=== PATIENT | female | born 1930 | race Caucasian/White ===

== ENCOUNTER → 2017-04-09 | Outpatient (CLI) | payer MEDICARE ==
[~2017-04-09] MED LIST: /FENT25PA; /PANT40TA; /THIA10TA; ACET65TA; ANOR1AER IN; CALC12502; COLA100C2; ECOT325T5; FLEXERIL; FOLI1TAB; LEVO50TA5 PO; LISI10TA4 PO; METAMUCIL; MILKSUS; NICO14DI3; PROAAER10 IN; SENN8.6T14; THERGRAN; VICO5TAB
[2017-04-09 13:06] LABS: BASO # 0.1 K/mm3 (0.0-0.2); BASO % 1.2 % (0.0-1.0); EOS # 0.2 K/mm3 (0.0-0.50); EOS % 4.3 % (0.0-3.0); LARGE UNSTAINED CELL # 0.1 K/mm3 (0.0-0.4); LARGE UNSTAINED CELL % 1.8 % (0.0-4.0); LYMPH # 1.5 K/mm3 (1.5-4.5); LYMPH % 28.1 % (24.0-44.0); MEAN CORPUSCULAR HEMOGLOBIN 33.9 pg (27.0-33.0); MEAN CORPUSCULAR HGB CONC 33.3 g/dl (32.0-36.5); MEAN CORPUSCULAR VOLUME 101.8 fl (80.0-96.0); MONO # 0.3 K/mm3 (0.0-0.8); MONO % 6.2 % (0.0-5.0); NEUTROPHILS # 2.9 K/mm3 (1.8-7.7); NEUTROPHILS % 58.4 % (36.0-66.0); PLATELET COUNT, AUTOMATED 294 k/mm3 (150-450); RED CELL DISTRIBUTION WIDTH 12.3 % (11.5-14.5)
[2017-04-09 13:20] LABS: ALBUMIN/GLOBULIN RATIO 1.54 (1.00-1.93); ALKALINE PHOSPHATASE 91 U/L (45-117); ALT/SGPT 37 U/L (12-78); ANION GAP 7 MEQ/L (8-16); AST/SGOT 31 U/L (15-37); BILIRUBIN,TOTAL 0.5 MG/DL (0.2-1.0); BLOOD UREA NITROGEN 16 MG/DL (7-18); CARBON DIOXIDE LEVEL 29 MEQ/L (21-32); CHLORIDE LEVEL 103 MEQ/L (98-107); CHOLESTEROL LEVEL 254 MG/DL (<200); CREATININE FOR GFR 0.82 MG/DL (0.55-1.02); GLOMERULAR FILTRATION RATE > 60.0 (>32); GLUCOSE, FASTING 79 MG/DL (83-110); POTASSIUM SERUM 4.8 MEQ/L (3.5-5.1); SODIUM LEVEL 139 MEQ/L (136-145); TOTAL PROTEIN 6.6 GM/DL (6.4-8.2); TRIGLYCERIDES LEVEL 176 MG/DL (<150)
== END ==
LOC: M SMT 10:15
PROVIDERS: ATTEND Physician Assistant Medical
DX: I10 Essential (primary) hypertension (principal); E03.8 Other specified hypothyroidism; Z13.220 Encounter for screening for lipoid disorders; Z13.0 Encounter for screening for diseases of the blood and blood-forming organs and certain disorders involving the immune mechanism

== ENCOUNTER → 2017-04-27 | Outpatient (CLI) | payer MEDICARE ==
--- NOTE | 2017-04-28 06:43 | REP ---
PA CHEST WITH LEFT RIBS: 04/27/2017. Comparison: chest x-ray 11/11/2016, 04/10/2015 [facility]. Clinical history: Left posterior rib pain, fell yesterday. Findings: PA chest: Lungs are quite hyperinflated. There is no pleural effusion, lateral pleural thickening or apical scarring. Triangular-shaped density at the inferior aspect of the right hilum along the right heart border suggest scar and is unchanged for the last 2 years. There is quite prominent pulmonary artery main segment on the left, unchanged as well. Some underlying interstitial fibrotic change and emphysematous changes, peribronchial thickening and a calcified aortic arch noted, all of this unchanged. No gross cardiomegaly, vascular redistribution or pulmonary edema. No pneumothorax. Left ribs: Posterior rib articulations, clavicles and the visualized vertebral bodies without acute compression deformity of destructive lesions. There is no fracture visible on the ribs on an acute basis. Healing and remodeling of an old left lateral fifth and seventh rib fracture noted on the straight AP rib views. Marginal osteophytes in the spine. No free air under the diaphragm. There is no pleural effusion, lateral pleural thickening or pneumothorax. Impression: 1. Hyperinflation with COPD and fibrosis, pulmonary artery hypertension and some apical scarring. All of this stable. 2. Triangular shaped density suggesting scar or fat in the fissure adjacent to the right heart border. No dense consolidation, parenchymal mass or acute infiltrate. 3. Old healed and remodeled left lateral fifth and seventh rib fractures without evidence of an acute rib fracture, effusion or pneumothorax. Signed by Adelso Pierson MD 04/28/2017 07:55 A
--- NOTE | 2017-04-28 06:43 | REP ---
LEFT KNEE PAIN: 04/27/2017. Clinical history: Knee pain, patient fell yesterday. Remote lateral tibial plateau, proximal fibular fracture in 2007. Comparison: 04/28/2008. Findings: Five views are provided. The lateral tibial plateau and proximal fibular fractures are healed and remodeled since previous study. 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 Multiple lucencies. No joint effusion. I see no patellar subluxation or dislocation. Vascular calcifications in arteries are noted in the lower femur, popliteal fossa and proximal calf. There is tricompartment osteoarthritis. No joint space narrowing. Impression: 1. 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 2. No new or acute fractures. Tricompartment osteoarthritis. Demineralization. No definite joint effusion. Signed by Adelso Pierson MD 04/28/2017 07:55 A
== END ==
LOC: M ADAMS 11:36
PROVIDERS: ATTEND Physician Assistant
DX: M54.6 Pain in thoracic spine (principal); M25.562 Pain in left knee

== ENCOUNTER → 2017-12-05 | Outpatient (CLI) | payer MEDICARE | LOC: M ADAMS 10:12 | DX: J84.9 Interstitial pulmonary disease, unspecified (principal) | CPT/HCPCS: 71046 ==

== ENCOUNTER 2017-12-09 04:04 | Inpatient (IN) | payer MEDICARE ==
[2017-12-09 04:33] LABS: BASO # 0.1 10^3/uL (0.0-0.2); BASO % 0.9 % (0.0-1.0); EOS % 7.7 % (0.0-3.0); HEMATOCRIT 40.2 % (36.0-47.0); IMMATURE GRANULOCYTE % 0.4 % (0-3.0); LYMPH # 2.5 10^3/uL (1.5-4.5); LYMPH % 18.9 % (24.0-44.0); MEAN CORPUSCULAR HEMOGLOBIN 32.1 pg (27.0-33.0); MEAN CORPUSCULAR HGB CONC 32.3 g/dl (32.0-36.5); MEAN CORPUSCULAR VOLUME 99.3 fl (80.0-96.0); MONO # 1.4 10^3/uL (0.0-0.8); MONO % 10.8 % (0.0-5.0); NEUTROPHILS % 61.3 % (36.0-66.0); PLATELET COUNT, AUTOMATED 465 10^3/uL (150-450); RED BLOOD COUNT 4.05 10^6/uL (4.00-5.40); RED CELL DISTRIBUTION WIDTH 11.3 % (11.5-14.5); WHITE BLOOD COUNT 13.1 10^3/uL (4.0-10.0)
[2017-12-09 04:42] LABS: ABG BASE EXCESS -3.7 (-2.0-2.0); ABG O2 SATURATION 96.9 % (95.0-99.0); ABG PARTIAL PRESSURE CO2 54.3 mmHg (35.0-45.0); ABG PARTIAL PRESSURE O2 97.1 mmHg (75.0-100.0); ABG STANDARD HCO3 21.4 MEQ/L (22.0-26.0); ABG TOTAL CO2 25.7 MEQ/L (23.0-31.0); ABG pH (ARTERIAL) 7.263 UNITS (7.350-7.450)
[2017-12-09 04:51] LABS: LACTIC ACID SEPSIS PROTOCOL 1.2 MMOL/L (0.4-2.0)
[2017-12-09 04:53] LABS: ANION GAP 8 MEQ/L (8-16); BLOOD UREA NITROGEN 12 MG/DL (7-18); CALCIUM LEVEL 8.5 MG/DL (8.8-10.2); CARBON DIOXIDE LEVEL 28 MEQ/L (21-32); CHLORIDE LEVEL 105 MEQ/L (98-107); CK-MB VALUE MASS 2.9 NG/ML (0.0-3.6); CPK CREATINE PHOSPHOKINASE 89 U/L (26-192); CREATININE FOR GFR 0.59 MG/DL (0.55-1.30); GLOMERULAR FILTRATION RATE > 60.0 (>32); GLUCOSE, FASTING 182 MG/DL (70-100); MB/CK RELATIVE INDEX 3.25 (< OR =4); NT-PRO BNP 435 PG/ML (<450); POTASSIUM SERUM 4.4 MEQ/L (3.5-5.1); SODIUM LEVEL 141 MEQ/L (136-145); TROPONIN I < 0.02 NG/ML (< 0.10)
[2017-12-09] MEDS: ALBUTEROL SULFATE 2.5 MG/0.5 ML INH NEB SOLN NEB (05:02)
[2017-12-09 05:13] LABS: APPEARANCE, URINE CLEAR (CLEAR); BACTERIA, URINE AUTO NEGATIVE (NEGATIVE); BILIRUBIN, URINE AUTO NEGATIVE (NEGATIVE); BLOOD, URINE BLOOD NEGATIVE (NEGATIVE); COLOR, URINE YELLOW (YELLOW); GLUCOSE, URINE (UA) AUTO NEGATIVE (NEGATIVE); KETONE, URINE AUTO TRACE mg/dL (NEGATIVE); LEUKOCYTE ESTERASE, URINE AUTO NEGATIVE (NEGATIVE); MUCUS, URINE SMALL (NEGATIVE); NITRITE, URINE AUTO NEGATIVE (NEGATIVE); PROTEIN, URINE AUTO NEGATIVE (NEGATIVE); RBC, URINE AUTO 5 /HPF (0-3); SPECIFIC GRAVITY URINE AUTO 1.013 (1.002-1.035); SQUAMOUS EPITHELIAL CELL UR AU 0 /HPF (0-6); UROBILINOGEN, URINE AUTO 0.2 mg/dL (0.0-2.0); WBC, URINE AUTO 0 /HPF (0-3)
[2017-12-09 05:20] LABS: ALBUMIN 3.7 GM/DL (3.2-5.2); ALBUMIN/GLOBULIN RATIO 1.23 (1.00-1.93); ALKALINE PHOSPHATASE 115 U/L (45-117); ALT/SGPT 17 U/L (12-78); AST/SGOT 20 U/L (7-37); BILIRUBIN,DIRECT 0.1 MG/DL (0.0-0.2); BILIRUBIN,TOTAL 0.3 MG/DL (0.2-1.0); FREE THYROXINE INDEX 3.1 % (1.3-4.8); T UPTAKE 36 % (30-39); THYROXINE (T4) 8.5 UG/DL (4.5-12.0); TOTAL PROTEIN 6.7 GM/DL (6.4-8.2)
[2017-12-09] MEDS ORDERED: ISOVUE-370 76% 100ML VIAL (Q9967) As Ordered (05:21)
[2017-12-09 05:27] LABS: AMMONIA 30 uMOL/L (<32)
[2017-12-09] MEDS: LEVOTHYROXINE 75MCG TABLET (0.075MG) PO (06:00)
[2017-12-09] MEDS: dexameTHASONE 20 MG/5 ML VIAL (J1100) IV (06:10)
[2017-12-09] MEDS ORDERED: ONDANSETRON 4MG/2ML VIAL (J2405) IV (06:15)
[2017-12-09] MEDS ORDERED: BISACODYL 10 MG SUPP PR (06:15)
[2017-12-09] MEDS ORDERED: IPRATROPIUM 0.5MG/ALBUTEROL 2.5MG INH SOL UD 3ML (DUONEB)(J7620) NEB (06:15)
[2017-12-09] MEDS ORDERED: ALPRAZolam 0.25 MG TAB PO (06:30)
[2017-12-09] MEDS: HEPARIN SOD (PORCINE) 5000 UNITS/ML VIAL SC ×3 (07:03→21:08)
[2017-12-09] MEDS: ACETAMINOPHEN TAB 650MG DOSE (2X325MG) PO ×3 (07:04→21:08)
[2017-12-09] MEDS: AZITHROMYCIN INJ 500 MG, VIAL MATE ADAPTER 1 EACH in D5W 250 ML IV (07:04)
[2017-12-09 07:59] LABS: ABG BASE EXCESS -3.8 (-2.0-2.0); ABG HCO3 26.7 MEQ/L (22.0-26.0); ABG PARTIAL PRESSURE O2 124.3 mmHg (75.0-100.0); ABG STANDARD HCO3 21.3 MEQ/L (22.0-26.0); ABG TOTAL CO2 29.1 MEQ/L (23.0-31.0)
[2017-12-09 08:00] LABS: INFLUENZA A AMPLIFICATION NEGATIVE (NEGATIVE); INFLUENZA B AMPLIFICATION NEGATIVE (NEGATIVE)
[2017-12-09] MEDS: CEFTRIAXONE SOD 1 GM in APPROPRIATE DILUENT 1 EA IV (08:00)
[2017-12-09] MEDS: IPRATROPIUM 0.5MG/ALBUTEROL 2.5MG INH SOL UD 3ML (DUONEB)(J7620) NEB ×3 (08:01→19:59)
[2017-12-09 08:11] LABS: ABG pH (ARTERIAL) 7.153 UNITS (7.350-7.450)
[2017-12-09] MEDS: LISINOPRIL 10 MG TAB PO (08:56)
[2017-12-09 10:13] LABS: ABG BASE EXCESS 0.7 (-2.0-2.0); ABG HCO3 26.9 MEQ/L (22.0-26.0); ABG O2 SATURATION 83.4 % (95.0-99.0); ABG PARTIAL PRESSURE CO2 49.1 mmHg (35.0-45.0); ABG STANDARD HCO3 24.8 MEQ/L (22.0-26.0); ABG TOTAL CO2 28.4 MEQ/L (23.0-31.0); ABG pH (ARTERIAL) 7.356 UNITS (7.350-7.450)
[2017-12-09 10:15] LABS: ABG PARTIAL PRESSURE O2 46.8 mmHg (75.0-100.0)
[2017-12-09] MEDS: methylPREDNISolone INJ 125 MG/2 ML VIAL (J2930) IV ×2 (10:48→18:08)
[2017-12-09] MEDS: NS 1,000 ML IV (14:17)
[2017-12-09] MEDS ORDERED: diphenhydrAMINE 25 MG CAP PO (21:00)
[2017-12-10] MEDS: IPRATROPIUM 0.5MG/ALBUTEROL 2.5MG INH SOL UD 3ML (DUONEB)(J7620) NEB ×4 (01:05→14:28)
[2017-12-10] MEDS: methylPREDNISolone INJ 125 MG/2 ML VIAL (J2930) IV (01:36)
[2017-12-10 05:04] LABS: HEMATOCRIT 36.2 % (36.0-47.0); MEAN CORPUSCULAR HEMOGLOBIN 32.5 pg (27.0-33.0); MEAN CORPUSCULAR HGB CONC 33.1 g/dl (32.0-36.5); MEAN CORPUSCULAR VOLUME 98.1 fl (80.0-96.0); PLATELET COUNT, AUTOMATED 395 10^3/uL (150-450); RED BLOOD COUNT 3.69 10^6/uL (4.00-5.40); RED CELL DISTRIBUTION WIDTH 11.4 % (11.5-14.5); WHITE BLOOD COUNT 9.9 10^3/uL (4.0-10.0)
[2017-12-10 05:21] LABS: ANION GAP 8 MEQ/L (8-16); BLOOD UREA NITROGEN 18 MG/DL (7-18); CALCIUM LEVEL 8.3 MG/DL (8.8-10.2); CARBON DIOXIDE LEVEL 26 MEQ/L (21-32); CHLORIDE LEVEL 103 MEQ/L (98-107); CREATININE FOR GFR 0.64 MG/DL (0.55-1.30); GLOMERULAR FILTRATION RATE > 60.0 (>32); GLUCOSE, FASTING 141 MG/DL (70-100); POTASSIUM SERUM 4.2 MEQ/L (3.5-5.1); SODIUM LEVEL 137 MEQ/L (136-145)
[2017-12-10] MEDS: AZITHROMYCIN INJ 500 MG, VIAL MATE ADAPTER 1 EACH in D5W 250 ML IV (05:33)
[2017-12-10] MEDS: LEVOTHYROXINE 75MCG TABLET (0.075MG) PO (05:33)
[2017-12-10] MEDS: HEPARIN SOD (PORCINE) 5000 UNITS/ML VIAL SC ×3 (05:33→22:33)
[2017-12-10] MEDS: NS 1,000 ML IV (06:10)
[2017-12-10 08:43] LABS: ABG BASE EXCESS -0.4 (-2.0-2.0); ABG HCO3 23.3 MEQ/L (22.0-26.0); ABG O2 SATURATION 92.3 % (95.0-99.0); ABG PARTIAL PRESSURE CO2 35.3 mmHg (35.0-45.0); ABG PARTIAL PRESSURE O2 58.8 mmHg (75.0-100.0); ABG TOTAL CO2 24.4 MEQ/L (23.0-31.0); ABG pH (ARTERIAL) 7.438 UNITS (7.350-7.450)
[2017-12-10] MEDS: methylPREDNISolone INJ 40 MG/1 ML VIAL (J2920) IV ×2 (09:53→17:52)
[2017-12-10] MEDS: LISINOPRIL 10 MG TAB PO (09:54)
[2017-12-10] MEDS: CEFTRIAXONE SOD 1 GM in APPROPRIATE DILUENT 1 EA IV (09:54)
[2017-12-11] MEDS: IPRATROPIUM 0.5MG/ALBUTEROL 2.5MG INH SOL UD 3ML (DUONEB)(J7620) NEB ×4 (02:00→21:16)
[2017-12-11] MEDS: methylPREDNISolone INJ 40 MG/1 ML VIAL (J2920) IV ×3 (02:46→18:27)
[2017-12-11] MEDS: LEVOTHYROXINE 75MCG TABLET (0.075MG) PO (06:12)
[2017-12-11] MEDS: AZITHROMYCIN INJ 500 MG, VIAL MATE ADAPTER 1 EACH in D5W 250 ML IV (06:12)
[2017-12-11] MEDS: HEPARIN SOD (PORCINE) 5000 UNITS/ML VIAL SC ×3 (06:12→21:36)
[2017-12-11] MEDS: ANORO ELLIPTA INH (07:49)
[2017-12-11] MEDS: LISINOPRIL 10 MG TAB PO (08:32)
[2017-12-11] MEDS: CEFTRIAXONE SOD 1 GM in APPROPRIATE DILUENT 1 EA IV (08:32)
[2017-12-11 09:06] LABS: HEMATOCRIT 38.6 % (36.0-47.0); HEMOGLOBIN 12.7 g/dl (12.0-16.0); MEAN CORPUSCULAR HEMOGLOBIN 32.6 pg (27.0-33.0); MEAN CORPUSCULAR HGB CONC 32.9 g/dl (32.0-36.5); PLATELET COUNT, AUTOMATED 446 10^3/uL (150-450); RED CELL DISTRIBUTION WIDTH 11.5 % (11.5-14.5); WHITE BLOOD COUNT 18.1 10^3/uL (4.0-10.0)
[2017-12-11 09:29] LABS: ANION GAP 9 MEQ/L (8-16); BLOOD UREA NITROGEN 20 MG/DL (7-18); CALCIUM LEVEL 8.2 MG/DL (8.8-10.2); CARBON DIOXIDE LEVEL 26 MEQ/L (21-32); CHLORIDE LEVEL 105 MEQ/L (98-107); CREATININE FOR GFR 0.96 MG/DL (0.55-1.30); GLOMERULAR FILTRATION RATE 58.8 (>32); GLUCOSE, FASTING 171 MG/DL (70-100); POTASSIUM SERUM 4.1 MEQ/L (3.5-5.1); SODIUM LEVEL 140 MEQ/L (136-145)
[2017-12-11] MEDS: CEFDINIR 300 MG CAP (OMNICEF) PO (21:35)
[2017-12-12] MEDS: IPRATROPIUM 0.5MG/ALBUTEROL 2.5MG INH SOL UD 3ML (DUONEB)(J7620) NEB ×4 (01:50→20:05)
[2017-12-12] MEDS: methylPREDNISolone INJ 40 MG/1 ML VIAL (J2920) IV (01:54)
[2017-12-12] MEDS: LEVOTHYROXINE 75MCG TABLET (0.075MG) PO (05:57)
[2017-12-12] MEDS: HEPARIN SOD (PORCINE) 5000 UNITS/ML VIAL SC (05:57)
[2017-12-12 06:26] LABS: HEMATOCRIT 35.1 % (36.0-47.0); HEMOGLOBIN 11.5 g/dl (12.0-16.0); MEAN CORPUSCULAR HEMOGLOBIN 32.1 pg (27.0-33.0); MEAN CORPUSCULAR HGB CONC 32.8 g/dl (32.0-36.5); PLATELET COUNT, AUTOMATED 408 10^3/uL (150-450); RED BLOOD COUNT 3.58 10^6/uL (4.00-5.40); RED CELL DISTRIBUTION WIDTH 11.5 % (11.5-14.5); WHITE BLOOD COUNT 11.1 10^3/uL (4.0-10.0)
[2017-12-12 06:47] LABS: ANION GAP 6 MEQ/L (8-16); BLOOD UREA NITROGEN 21 MG/DL (7-18); CALCIUM LEVEL 8.1 MG/DL (8.8-10.2); CARBON DIOXIDE LEVEL 28 MEQ/L (21-32); CHLORIDE LEVEL 108 MEQ/L (98-107); CREATININE FOR GFR 0.68 MG/DL (0.55-1.30); GLOMERULAR FILTRATION RATE > 60.0 (>32); GLUCOSE, FASTING 129 MG/DL (70-100); POTASSIUM SERUM 3.9 MEQ/L (3.5-5.1); SODIUM LEVEL 142 MEQ/L (136-145)
[2017-12-12] MEDS: ANORO ELLIPTA INH (09:01)
[2017-12-12] MEDS: predniSONE 20 MG TAB PO (09:20)
[2017-12-12] MEDS: CEFDINIR 300 MG CAP (OMNICEF) PO ×2 (09:20→20:09)
[2017-12-12] MEDS: LISINOPRIL 10 MG TAB PO (09:20)
[2017-12-13] MEDS: IPRATROPIUM 0.5MG/ALBUTEROL 2.5MG INH SOL UD 3ML (DUONEB)(J7620) NEB ×2 (01:54→08:00)
[2017-12-13 05:41] LABS: HEMATOCRIT 33.4 % (36.0-47.0); MEAN CORPUSCULAR HEMOGLOBIN 32.4 pg (27.0-33.0); MEAN CORPUSCULAR HGB CONC 32.9 g/dl (32.0-36.5); MEAN CORPUSCULAR VOLUME 98.2 fl (80.0-96.0); PLATELET COUNT, AUTOMATED 397 10^3/uL (150-450); RED CELL DISTRIBUTION WIDTH 11.7 % (11.5-14.5); WHITE BLOOD COUNT 10.9 10^3/uL (4.0-10.0)
[2017-12-13] MEDS: LEVOTHYROXINE 75MCG TABLET (0.075MG) PO (05:47)
[2017-12-13 06:08] LABS: ANION GAP 4 MEQ/L (8-16); BLOOD UREA NITROGEN 21 MG/DL (7-18); CALCIUM LEVEL 8.2 MG/DL (8.8-10.2); CARBON DIOXIDE LEVEL 27 MEQ/L (21-32); CHLORIDE LEVEL 110 MEQ/L (98-107); CREATININE FOR GFR 0.65 MG/DL (0.55-1.30); GLOMERULAR FILTRATION RATE > 60.0 (>32); GLUCOSE, FASTING 87 MG/DL (70-100); POTASSIUM SERUM 3.4 MEQ/L (3.5-5.1); SODIUM LEVEL 141 MEQ/L (136-145)
[2017-12-13] MEDS: POTASSIUM CHLORIDE 10 MEQ SR TABLET PO (08:27)
[2017-12-13] MEDS: ANORO ELLIPTA INH (08:38)
[2017-12-13] MEDS: CEFDINIR 300 MG CAP (OMNICEF) PO (09:41)
[2017-12-13] MEDS: predniSONE 20 MG TAB PO (09:41)
[2017-12-13] MEDS: LISINOPRIL 10 MG TAB PO (09:42)
== END 2017-12-13 12:40 | disposition home or self-care (01) | DRG 190 ==
LOC: M MSPAV 12-10 18:13 → M ED 04:04 → M ED INP 06:22 → M ICU 06:55
DX: J44.1 Chronic obstructive pulmonary disease with (acute) exacerbation (principal); J18.9 Pneumonia, unspecified organism; J96.21 Acute and chronic respiratory failure with hypoxia; J96.22 Acute and chronic respiratory failure with hypercapnia; E87.4 Mixed disorder of acid-base balance; J44.0 Chronic obstructive pulmonary disease with (acute) lower respiratory infection; I10 Essential (primary) hypertension; E03.9 Hypothyroidism, unspecified; Z87.891 Personal history of nicotine dependence; Z79.899 Other long term (current) drug therapy; Z88.8 Allergy status to other drugs, medicaments and biological substances; Z88.1 Allergy status to other antibiotic agents

== ENCOUNTER 2018-03-19 08:39 | Inpatient (IN) | payer MEDICARE ==
[2018-03-19] MEDS: methylPREDNISolone INJ 125 MG/2 ML VIAL (J2930) IV ×2 (09:00→21:17)
[2018-03-19 09:32] LABS: BASO # 0.1 10^3/uL (0.0-0.2); BASO % 1.7 % (0.0-1.0); EOS % 11.4 % (0.0-3.0); HEMATOCRIT 41.1 % (36.0-47.0); HEMOGLOBIN 13.5 g/dl (12.0-15.5); IMMATURE GRANULOCYTE % 0.4 % (0-3.0); LYMPH # 1.9 10^3/uL (1.5-4.5); LYMPH % 22.6 % (24.0-44.0); MEAN CORPUSCULAR HEMOGLOBIN 32.6 pg (27.0-33.0); MEAN CORPUSCULAR HGB CONC 32.8 g/dl (32.0-36.5); MEAN CORPUSCULAR VOLUME 99.3 fl (80.0-96.0); MONO # 0.6 10^3/uL (0.0-0.8); MONO % 7.5 % (0.0-5.0); NEUTROPHILS # 4.8 10^3/uL (1.8-7.7); NEUTROPHILS % 56.4 % (36.0-66.0); PLATELET COUNT, AUTOMATED 321 10^3/uL (150-450); RED BLOOD COUNT 4.14 10^6/uL (4.00-5.40); RED CELL DISTRIBUTION WIDTH 12.7 % (11.5-14.5); WHITE BLOOD COUNT 8.4 10^3/uL (4.0-10.0)
[2018-03-19] MEDS: IPRATROPIUM 0.5MG/ALBUTEROL 2.5MG INH SOL UD 3ML (DUONEB)(J7620) NEB ×4 (09:48→20:51)
[2018-03-19 09:50] LABS: ABG BASE EXCESS 3.6 (-2.0-2.0); ABG HCO3 28.2 MEQ/L (22.0-26.0); ABG O2 SATURATION 91.9 % (95.0-99.0); ABG PARTIAL PRESSURE CO2 42.5 mmHg (35.0-45.0); ABG PARTIAL PRESSURE O2 58.3 mmHg (75.0-100.0); ABG STANDARD HCO3 27.6 MEQ/L (22.0-26.0); ABG TOTAL CO2 29.5 MEQ/L (23.0-31.0)
[2018-03-19 10:03] LABS: ALBUMIN 3.9 GM/DL (3.2-5.2); ALBUMIN/GLOBULIN RATIO 1.39 (1.00-1.93); ALKALINE PHOSPHATASE 91 U/L (45-117); ALT/SGPT 26 U/L (12-78); ANION GAP 9 MEQ/L (8-16); AST/SGOT 20 U/L (7-37); BILIRUBIN,DIRECT < 0.1 MG/DL (0.0-0.2); BILIRUBIN,TOTAL 0.4 MG/DL (0.2-1.0); BLOOD UREA NITROGEN 17 MG/DL (7-18); CALCIUM LEVEL 8.7 MG/DL (8.8-10.2); CARBON DIOXIDE LEVEL 30 MEQ/L (21-32); CHLORIDE LEVEL 103 MEQ/L (98-107); CPK CREATINE PHOSPHOKINASE 54 U/L (26-192); CREATININE FOR GFR 0.76 MG/DL (0.55-1.30); GLOMERULAR FILTRATION RATE > 60.0 (>32); GLUCOSE, FASTING 106 MG/DL (70-100); POTASSIUM SERUM 4.2 MEQ/L (3.5-5.1); SODIUM LEVEL 142 MEQ/L (136-145); TOTAL PROTEIN 6.7 GM/DL (6.4-8.2); TROPONIN I < 0.02 NG/ML (< 0.10)
[2018-03-19 10:03] LABS: LACTIC ACID SEPSIS PROTOCOL 1.4 MMOL/L (0.4-2.0)
[2018-03-19 10:08] LABS: CK-MB VALUE MASS 1.7 NG/ML (<3.6); MB/CK RELATIVE INDEX 3.14 (< OR =4); NT-PRO BNP 525 PG/ML (<450)
[2018-03-19] MEDS ORDERED: ISOVUE-370 76% 100ML VIAL (Q9967) As Ordered (10:27)
[2018-03-19] MEDS ORDERED: ACETAMINOPHEN TAB 650MG DOSE (2X325MG) PO (15:30)
[2018-03-19] MEDS ORDERED: ALBUTEROL SULFATE 2.5 MG/0.5 ML INH NEB SOLN NEB (15:30)
[2018-03-19] MEDS ORDERED: BISACODYL 5 MG TAB PO (15:30)
[2018-03-19] MEDS ORDERED: POLYVINYL ALCOHOL OPHTH SOLN 15 ML(LIQUITEARS) OU (15:45)
[2018-03-19] MEDS: AZITHROMYCIN INJ 500 MG, VIAL MATE ADAPTER 1 EACH in D5W 250 ML IV (16:39)
[2018-03-19] MEDS: PANTOPRAZOLE 40MG TAB (PROTONIX) PO (16:39)
[2018-03-19] MEDS: diphenhydrAMINE 25 MG CAP PO (21:17)
[2018-03-19] MEDS: HEPARIN SOD (PORCINE) 5000 UNITS/ML VIAL SC (21:18)
[2018-03-19 23:15] LABS: INFLUENZA A AMPLIFICATION NEGATIVE (NEGATIVE); INFLUENZA B AMPLIFICATION NEGATIVE (NEGATIVE)
[2018-03-20] MEDS: UNRESOLVED PATIENT OWN MED ORDER XX (00:01)
[2018-03-20] MEDS: IPRATROPIUM 0.5MG/ALBUTEROL 2.5MG INH SOL UD 3ML (DUONEB)(J7620) NEB ×4 (02:00→19:52)
[2018-03-20] MEDS: methylPREDNISolone INJ 125 MG/2 ML VIAL (J2930) IV ×3 (06:07→21:33)
[2018-03-20] MEDS: LEVOTHYROXINE 75MCG TABLET (0.075MG) PO (06:07)
[2018-03-20] MEDS: HEPARIN SOD (PORCINE) 5000 UNITS/ML VIAL SC ×2 (08:49→21:33)
[2018-03-20] MEDS: PANTOPRAZOLE 40MG TAB (PROTONIX) PO (08:50)
[2018-03-20] MEDS: LISINOPRIL 10 MG TAB PO (08:50)
[2018-03-20] MEDS: AZITHROMYCIN INJ 500 MG, VIAL MATE ADAPTER 1 EACH in D5W 250 ML IV (19:00)
[2018-03-20] MEDS: diphenhydrAMINE 25 MG CAP PO (21:33)
[2018-03-21] MEDS: UNRESOLVED PATIENT OWN MED ORDER XX (00:01)
[2018-03-21] MEDS: IPRATROPIUM 0.5MG/ALBUTEROL 2.5MG INH SOL UD 3ML (DUONEB)(J7620) NEB ×4 (00:16→20:28)
[2018-03-21] MEDS: LEVOTHYROXINE 75MCG TABLET (0.075MG) PO (05:55)
[2018-03-21] MEDS: methylPREDNISolone INJ 125 MG/2 ML VIAL (J2930) IV ×3 (05:55→21:44)
[2018-03-21 06:06] LABS: HEMATOCRIT 36.2 % (36.0-47.0); HEMOGLOBIN 11.8 g/dl (12.0-15.5); MEAN CORPUSCULAR HEMOGLOBIN 32.2 pg (27.0-33.0); MEAN CORPUSCULAR HGB CONC 32.6 g/dl (32.0-36.5); MEAN CORPUSCULAR VOLUME 98.9 fl (80.0-96.0); PLATELET COUNT, AUTOMATED 317 10^3/uL (150-450); RED BLOOD COUNT 3.66 10^6/uL (4.00-5.40); RED CELL DISTRIBUTION WIDTH 12.9 % (11.5-14.5); WHITE BLOOD COUNT 13.4 10^3/uL (4.0-10.0)
[2018-03-21 06:29] LABS: ANION GAP 8 MEQ/L (8-16); BLOOD UREA NITROGEN 24 MG/DL (7-18); CALCIUM LEVEL 8.6 MG/DL (8.8-10.2); CARBON DIOXIDE LEVEL 27 MEQ/L (21-32); CHLORIDE LEVEL 109 MEQ/L (98-107); CREATININE FOR GFR 0.74 MG/DL (0.55-1.30); GLOMERULAR FILTRATION RATE > 60.0 (>32); GLUCOSE, FASTING 123 MG/DL (70-100); POTASSIUM SERUM 4.5 MEQ/L (3.5-5.1); SODIUM LEVEL 144 MEQ/L (136-145)
[2018-03-21] MEDS: PANTOPRAZOLE 40MG TAB (PROTONIX) PO (08:43)
[2018-03-21] MEDS: LISINOPRIL 10 MG TAB PO (08:43)
[2018-03-21] MEDS: HEPARIN SOD (PORCINE) 5000 UNITS/ML VIAL SC ×2 (08:43→21:44)
[2018-03-21] MEDS: AZITHROMYCIN INJ 500 MG, VIAL MATE ADAPTER 1 EACH in D5W 250 ML IV (15:08)
[2018-03-21] MEDS: diphenhydrAMINE 25 MG CAP PO (21:43)
[2018-03-22] MEDS: UNRESOLVED PATIENT OWN MED ORDER XX (00:12)
[2018-03-22] MEDS: IPRATROPIUM 0.5MG/ALBUTEROL 2.5MG INH SOL UD 3ML (DUONEB)(J7620) NEB ×2 (02:00→07:33)
[2018-03-22] MEDS: LEVOTHYROXINE 75MCG TABLET (0.075MG) PO (05:30)
[2018-03-22] MEDS: methylPREDNISolone INJ 125 MG/2 ML VIAL (J2930) IV (05:30)
[2018-03-22] MEDS ORDERED: ANORO ELLIPTA INH (09:00)
[2018-03-22] MEDS: HEPARIN SOD (PORCINE) 5000 UNITS/ML VIAL SC (09:36)
[2018-03-22] MEDS: LISINOPRIL 10 MG TAB PO (09:36)
[2018-03-22] MEDS: PANTOPRAZOLE 40MG TAB (PROTONIX) PO (09:36)
== END 2018-03-22 12:05 | disposition home or self-care (01) | DRG 191 ==
LOC: M ED 08:39 → M ED INP 16:23 → M MS5PR 16:55
DX: J44.1 Chronic obstructive pulmonary disease with (acute) exacerbation (principal); I50.32 Chronic diastolic (congestive) heart failure; I11.0 Hypertensive heart disease with heart failure; E03.9 Hypothyroidism, unspecified; J06.9 Acute upper respiratory infection, unspecified; R53.81 Other malaise; Z90.710 Acquired absence of both cervix and uterus; Z87.891 Personal history of nicotine dependence; Z79.51 Long term (current) use of inhaled steroids; Z79.899 Other long term (current) drug therapy; Z88.8 Allergy status to other drugs, medicaments and biological substances; Z88.1 Allergy status to other antibiotic agents

== ENCOUNTER 2019-07-10 17:54 | Inpatient (IN) | payer MEDICARE ==
[~2019-07-10] VITALS: Ht 160 cm; Wt 48.9 kg
[~2019-07-10 17:54] MED LIST changes: -/FENT25PA; -/PANT40TA; +ALBU83IN INH; -ANOR1AER IN; +ANOR1AER INH; +BENA25TA10 PO; +CALC1TAB26 PO; +CEFD1CAP8; +CEFD1CAP8 PO; +CEFD300CAP PO; +DOXY100C37 PO; +FENT1DIS14; +LEG1TAB PO; +PRED10TA2 PO; +PRESCAP6 PO; -PROAAER10 IN; +PROAAER10 INH; +PROT1TAB2; +SYNT75TA PO; +SYST1SOL OU; +TYLE1TAB5 PO; +TYLE325T5 PO; +[UNRECOGNIZED DRUG - OTHER] OU
[2019-07-10] MEDS ORDERED: methylPREDNISolone INJ 125 MG/2 ML VIAL (J2930) IV ONE (18:30)
[2019-07-10] MEDS ORDERED: ACETAMINOPHEN TAB 650MG DOSE (2X325MG) PO ONE (18:30)
[2019-07-10] MEDS: IPRATROPIUM 0.5MG/ALBUTEROL 2.5MG INH SOL UD 3ML (DUONEB)(J7620) NEB PRN ×2 (18:36→19:09)
[2019-07-10 18:39] LABS: ABG BASE EXCESS -1.3 (-2.0-2.0); ABG HCO3 22.4 MEQ/L (22.0-26.0); ABG O2 SATURATION 94.4 % (95.0-99.0); ABG PARTIAL PRESSURE CO2 34.8 mmHg (35.0-45.0); ABG PARTIAL PRESSURE O2 66.1 mmHg (75.0-100.0); ABG STANDARD HCO3 23.3 MEQ/L (22.0-26.0); ABG TOTAL CO2 23.5 MEQ/L (23.0-31.0); ABG pH (ARTERIAL) 7.427 UNITS (7.350-7.450)
[2019-07-10 19:03] LABS: BASO # 0.1 10^3/uL (0.0-0.2); BASO % 0.3 % (0.0-1.0); EOS % 0.1 % (0.0-3.0); HEMATOCRIT 38.5 % (36.0-47.0); HEMOGLOBIN 12.7 g/dl (12.0-15.5); LYMPH # 0.7 10^3/uL (1.5-5.0); LYMPH % 3.7 % (24.0-44.0); MEAN CORPUSCULAR HEMOGLOBIN 34.3 pg (27.0-33.0); MEAN CORPUSCULAR VOLUME 104.1 fl (80.0-96.0); MONO # 0.9 10^3/uL (0.0-0.8); MONO % 4.7 % (0.0-5.0); NEUTROPHILS # 16.9 10^3/uL (1.5-8.5); NEUTROPHILS % 89.9 % (36.0-66.0); PLATELET COUNT, AUTOMATED 226 10^3/uL (150-450); WHITE BLOOD COUNT 18.8 10^3/uL (4.0-10.0)
[2019-07-10] MEDS ORDERED: TREL1AER IN (19:05)
[2019-07-10] MEDS ORDERED: ACET-683 PO (19:05)
[2019-07-10] MEDS ORDERED: CALC600T6 PO (19:05)
[2019-07-10 19:14] LABS: INR 1.21
[2019-07-10 19:17] LABS: D-DIMER QUANT 1109.78 ng/ml (<500)
--- NOTE | 2019-07-10 19:28 | ECGEPIP ---
[facility] - ED Test Date: 2019-07-10 Pat Name: DANIELE HASTINGS Department: Room: - Gender: Female [employer]er: Brenda SINGER : 1930 Requested By: STEVEN Etsrada Order Number: [id number] Reading MD: Caleb Ly Measurements Intervals [place] Rate: 98 P: 92 VA: 147 QRS: 61 QRSD: 81 T: 31 QT: 312 QTc: 399 Interpretive Statements SINUS RHYTHM WITH OCCASIONAL SUPRAVENTRICULAR PREMATURE COMPLEXES BASELINE ARTIFACT AFFECTS INTERPRETATION SIMILAR TO 03/19/18 Electronically Signed on 07-10-2019 19:28:21 EDT by Caleb Ly
[2019-07-10 19:37] LABS: BLOOD UREA NITROGEN 18 MG/DL (7-18); CALCIUM LEVEL 8.4 MG/DL (8.8-10.2); CARBON DIOXIDE LEVEL 30 MEQ/L (21-32); CHLORIDE LEVEL 103 MEQ/L (98-107); CK-MB VALUE MASS 1.3 NG/ML (<3.6); CPK CREATINE PHOSPHOKINASE 64 U/L (26-192); CREATININE FOR GFR 0.79 MG/DL (0.55-1.30); GLOMERULAR FILTRATION RATE > 60.0 (>32); GLUCOSE, FASTING 133 MG/DL (70-100); MB/CK RELATIVE INDEX 2.03 (< OR =4); NT-PRO BNP 1377 PG/ML (<450); POTASSIUM SERUM 4.1 MEQ/L (3.5-5.1); SODIUM LEVEL 137 MEQ/L (136-145); TROPONIN I < 0.02 NG/ML (< 0.10)
--- NOTE | 2019-07-10 20:20 | REPVR ---
PROCEDURE INFORMATION: Exam: US Duplex Lower Extremity Veins Exam date and time: 07/10/2019 7:19 PM Clinical history: 89 years old, female; Pain; Leg, upper; Bilateral; Additional info: Bilat leg pain R/O dvt TECHNIQUE: Imaging protocol: Real-time duplex ultrasound of the Lower Extremities with 2-D serrano scale, color Doppler flow and spectral waveform analysis with image documentation. Complete exam focused on the bilateral lower extremity veins. COMPARISON: No relevant prior studies available. FINDINGS: Right deep veins: Unremarkable. The common femoral, femoral and popliteal veins are patent without thrombus. Normal Doppler waveforms. Normal compressibility and/or augmentation response. Right superficial veins: Saphenofemoral junction is patent without thrombus. Left deep veins: Unremarkable. The common femoral, femoral and popliteal veins are patent without thrombus. Normal Doppler waveforms. Normal compressibility and/or augmentation response. Left superficial veins: Saphenofemoral junction is patent without thrombus. Soft tissues: Unremarkable. IMPRESSION: No sonographic evidence of deep vein thrombosis. Electronically signed by: Kashif Crawford On 07/10/2019 20:19:31 PM
[2019-07-10] MEDS ORDERED: ISOVUE-370 76% 100ML VIAL (Q9967) As Ordered ONE (20:34)
--- NOTE | 2019-07-10 21:06 | REPVR ---
PROCEDURE INFORMATION: Exam: CT Angiography Chest With Contrast Exam date and time: 07/10/2019 8:38 PM Clinical history: 89 years old, female; Abnormal findings; Abnormal diagnostic tests; Elevated d-dimer; Shortness of breath; Additional info: SOB, d-dimer TECHNIQUE: Imaging protocol: Computed tomographic angiography of the chest with intravenous contrast. Axial, coronal and sagittal reformatted images were created and reviewed. 3D rendering: MIP reconstructed images were created and reviewed. Radiation optimization: All CT scans at this facility use at least one of these dose optimization techniques: automated exposure control; mA and/or kV adjustment per patient size (includes targeted exams where dose is matched to clinical indication); or iterative reconstruction. Contrast material: ISOVUE 370; Contrast volume: 75 ml; Contrast route: IV; COMPARISON: CT ANGIO CHEST 03/19/2018 10:26 AM FINDINGS: Pulmonary arteries: Contrast opacification satisfactory. No intraluminal filling defect. Aorta: Mild atherosclerotic disease. No aneurysm or dissection. Lungs: Moderate emphysema. Mild central peribronchial thickening, suggestive of airway inflammation. Mild linear stranding and groundglass with subsegmental consolidation in the left greater than right lower lobes and right middle lobe, likely due to atelectasis and/or scarring. Pleural space: Small left greater than right pleural effusions. No pneumothorax. Heart: Unremarkable. No cardiomegaly. No pericardial effusion. Liver: Small calcified granuloma in the hepatic dome. Scattered hepatic cysts, measuring up to 1.7 cm and the right hepatic lobe. Spleen: Coarse calcified splenic granulomata. Unchanged 1 cm peripherally enhancing splenic nodule. Lymph nodes: No pathologically enlarged lymph nodes. Bones/joints: No acute osseous abnormality. Osteopenia. Degenerative changes. Soft tissues: Unremarkable. IMPRESSION: 1. No CT evidence of pulmonary embolism. 2. Small left greater than right pleural effusions. 3. Mild central peribronchial thickening, suggestive of airway inflammation. 4. Moderate emphysema. 5. Additional findings, as above. Electronically signed by: Kashif Crawford On 07/10/2019 21:05:42 PM
[2019-07-10] MEDS ORDERED: cefTRIAXone SOD 1 GM in D5W MINI-BAG PLUS 50 ML IV ONE (21:30)
[2019-07-10] MEDS ORDERED: PRESCAP PO (21:58)
[2019-07-10] MEDS ORDERED: CRAMP RELIEF PO (21:58)
[2019-07-10] MEDS ORDERED: DIPH25CA32 PO (21:58)
[2019-07-10] MEDS ORDERED: ACETAMINOPHEN TAB 650MG DOSE (2X325MG) PO PRN (22:00)
[2019-07-10] MEDS ORDERED: ALBUTEROL SULFATE 2.5 MG/0.5 ML INH NEB SOLN INH PRN (22:00)
[2019-07-10] MEDS ORDERED: POLYVINYL ALCOHOL OPHTH SOLN 15 ML(LIQUITEARS) OU PRN (22:15)
[2019-07-10] MEDS: DOXYCYCLINE HYCLATE 100 MG in D5W MINI-BAG PLUS 100 ML IV SCH (23:06)
[2019-07-10 23:35] VITALS: BP 137/67
[2019-07-11] MEDS ORDERED: diphenhydrAMINE 25 MG CAP PO PRN (00:45)
[2019-07-11] MEDS: OCUVITE 1 TAB PO SCH ×3 (00:48→21:16)
--- NOTE | 2019-07-11 01:47 | HPEPDOC ---
General Date of Admission Jul 10, 2019 at 21:48 Date of Service: Jul 10, 2019 Attending Physician: AKUA GRANT MD Chief Complaint The patient is a 89-year-old female admitted with a reason for visit of Pneumonia. Source: Patient Exam Limitations: No limitations Timing/Duration: Day(s), Getting worse Severity: Moderate Associated Symptoms: Shortness of breath, Weakness History of Present Illness 89-year-old woman with hypertension, COPD, hypothyroidism, chronic diastolic congestive heart failure (CHF), who presented to the ED with a 1 week history of increasing shortness of breath and cough productive of yellow sputum, without any hemoptysis, fevers or chills. She reports that when he symptoms started she thought that it was her COPD but with the worsening of her shortness of breath limiting her mobility, she asked her son she lives to take her to the hospital. She otherwise denied any chest pain, palpitations, sore throat, congestion, re cent cold symptoms or prolonged travel or history of clots. She also did not endorse any abdominal pain, nausea, vomiting, diarrhea, dysuria or hematuria. While in the emergency department, she arrived hemodynamically stable with a low grade temp to 100.2 and was noted to by hypoxemic to 82% on room air and placed on nasal canula with improvement. Studies revealed a leukocytosis to 18.8, Cr 0.79, troponin, TSH and lactate within normal limits with a +Ddimer that prompted a LE doppler US that showed no evidence of DVT and a CTA chest PE protocol that showed no PE but presence of a left lower lobe consolidation c/f pneumonia. She was given ceftriaxone/azithro and admitted to medicine for manag ement of PNA. Of note, a proBNP was checked and notably elevated to 1377. Home Medications Scheduled Calcium Carbonate/Vitamin D3 (Calcium 600-Vit D3 400 Tablet) 1 Each Tablet, 1 TAB PO DAILY, (Reported) Diphenhydramine HCl (Diphenhydramine HCl) 25 Mg Capsule, 25 MG PO QHS, (Reported) Fluticasone/Umeclidin/Vilanter (Trelegy Ellipta 100-62.5-25) 1 Each Blst.w.dev, 1 PUFF IN DAILY, (Reported) Levothyroxine Sodium (Synthroid) 75 Mcg Tab, 75 MCG PO DAILY, (Reported) Lisinopril (Lisinopril) 10 Mg Tab, 10 MG PO DAILY, (Reported) Vit A/Vit C/Vit E/Zinc/Copper (Preservision Areds Softgel) 1 Each Capsule, 1 CAP PO BID, (Reported) Scheduled PRN Acetaminophen (Acetaminophen) 500 Mg Tablet, 1,000 MG PO Q6H PRN for PAIN, (Reported) Albuterol Sulf (Albuterol Sulfate) 2.5 Mg/3 Ml Nebu, 2.5 MG INH Q4H PRN for SHORTNESS OF BREATH, (Reported) Albuterol Sulfate (Proair Hfa) 108 Mcg/Act Aer, 2 PUFFS INH QID PRN for SHORTNESS OF BREATH, (Reported) Propylene Glycol/Peg 400 (Systane 0.3-0.4% Eye Drops) 15 Ml Monik, 1 DROP OU PRN PRN for DRY EYES, (Reported) [leg cramp relief] , 1 TAB PO Q4H PRN for LEG CRAMPS, (Reported) Allergies Coded Allergies: Aminoglycosides (Verified Allergy, Unknown, 07/10/19) bacitracin (Verified Allergy, Unknown, 07/10/19) neomycin (Verified Allergy, Unknown, 07/10/19) polymyxin B (Verified Allergy, Unknown, 07/10/19) Past Medical History Medical History 1. COPD. 2. Hypertension. 3. Hypothyroidism. 4. Chronic diastolic CHF, grade 1. Surgical History 1. Status post appendectomy. 2. Status post hysterectomy. Family History Significant Family History: No pertinent family hx Social History * Smoker: Denies, former Smoker Alcohol: other (1-2 glasses of wine every night) Drugs: denies Recent Travel/Sick Contacts: Denies: Recent travel, Recent sick contacts Psychosocial History: No pertinent psych hx Lives alone, ex-tobacco user, stopped 10 years ago, has a daily alcohol of 1-2 glasses of wine. A-FIB/CHADSVASC A-FIB History Current/History of A-Fib/PAF?: No Current PO Anticoag Therapy: No Age/Risk Factor Scoring CHADSVASC: CHADSVASC Response (Comments) Value Age Risk Factor Age >/= 75 years old 2 Gender Risk Factor Female 1 Hx of CHF Yes 1 Hx of HTN Yes 1 Hx of Stroke/TIA/or VTE No 0 Hx of Diabetes No 0 Hx of Vascular Disease Yes 1 Total 6 Treatment Treatment ordered: NONE Reason Anticoagulant not given: Not indicated/[id number] Review of Systems Constitutional: Reports: Weakness, Fatigue; Denies: Chills, Fever, Night Sweats Eyes: Denies: Pain, Vision change ENT: Denies: Head Aches, Ear Pain, Dysphagia Skin: Denies: Rash, Lesions, Breakdown Pulmonary: Reports: Dyspnea; Denies: Pleuritic Chest Pain Cardiovascular: Denies: Chest Pain, Palpitations, Orthopnea, Paroxysmal Noc. Dyspnea, Lt Headedness Gastrointestinal: Denies: Nausea, Vomiting, Abdominal Pain, Diarrhea Genitourinary: Denies: Dysuria, Frequency, Incontinence, Retention Hematologic: Denies: Bruising, Bleeding Excessively, Petecchia, Purpura, Enlarged Lymph Nodes, Other Hematologic Endocrine: Denies: Polydipsia, Polyphagia, Polyuria, Heat Intolerance, Cold Intolerance, Other Endocrine Sx Musculoskeletal: Denies: Neck Pain, Back Pain, Shoulder Pain, Arm Pain, Hand Pain, Leg Pain, Foot Pain, Joint Pain, Muscle Pain, Spasms, Other Symptoms Neurological: Denies: Weakness, Numbness, Incoordination, Change in speech, Confusion, Seizures, Other Symptoms Psych: Denies: Mood Normal, Anxiety, Depression, Memory Issues, Thoughts of Self Harm, Anger, Thoughts of Harming Other, Other Psych Physical Examination General Exam: Positive: Alert, No Acute Distress Eye Exam: Positive: PERRLA, Conjunctiva & lids normal, EOMI; Negative: Sclera icteric ENT Exam: Positive: Atraumatic, Mucous membr. moist/pink, Pharynx Normal Neck Exam: Positive: Supple; Negative: JVD, thyromegaly Chest Exam: Positive: Clear to auscultation, Normal air movement, Diminished (diminished at left posterior base); Negative: Rales, Rhonchi, Wheezing Heart Exam: Positive: Rate Normal, Regular Rhythm, Normal S1, Normal S2; Negative: Murmurs, Rubs Abdomen Exam: Positive: Normal bowel sounds, Soft; Negative: Tenderness, Hepatospenomegaly Extremity Exam: Positive: Normal pulses; Negative: Clubbing, Cyanosis, Edema Skin Exam: Positive: Nl turgor and temperature; Negative: Breakdown, Lesion Neuro Exam: Positive: Normal Speech, Cranial Nerves 3-12 NL, Reflexes 2+ Psych Exam: Positive: Mental status NL, Mood NL, Oriented x 3 Vital Signs Vital Signs Date Time Temp Pulse Resp B/P (MAP) Pulse Ox O2 Delivery O2 Flow Rate FiO2 07/10/19 23:35 97.8 83 20 137/67 (90) 95 Room Air 07/10/19 23:00 2.0 Laboratory Data Labs 24H Laboratory Tests 2 07/10/19 18:29: Blood Gas Bicarbonate Standard 23.3, Arterial Blood pH 7.427, Arterial Blood Partial Pressure CO2 34.8L, Arterial Blood Partial Pressure O2 66.1L, Arterial Blood Total CO2 23.5, Arterial Blood HCO3 22.4, Arterial Blood Base Excess -1.3, Arterial Blood Oxygen Saturation 94.4L 07/10/19 18:52: Immature Granulocyte % (Auto) 1.3, Neutrophils (%) (Auto) 89.9H, Lymphocytes (%) (Auto) 3.7L, Monocytes (%) (Auto) 4.7, Eosinophils (%) (Auto) 0.1, Basophils (%) (Auto) 0.3, Neutrophils # (Auto) 16.9H, Lymphocytes # (Auto) 0.7L, Monocytes # (Auto) 0.9H, Eosinophils # (Auto) 0.0, Basophils # (Auto) 0.1, Nucleated Red Blood Cells % (auto) 0.0, Prothrombin Time 15.0H, Prothromb Time International Ratio 1.21, D-Dimer, Quantitative 1109.78H, Anion Gap 4L, Glomerular Filtration Rate > 60.0, Lactic Acid Level 1.5, Calcium Level 8.4L, Total Creatine Kinase 64, Creatine Kinase MB 1.3, Creatine Kinase MB Relative Index 2.03, Troponin I < 0.02, TQ-Snq-X-Type Natriuretic Peptide 1377H, Thyroid Stimulating Hormone (TSH) 1.210 07/10/19 23:22: CBC/BMP Laboratory Tests 07/10/19 18:52 Microbiology Microbiology 07/10/19 Blood Culture, Received Pending 07/10/19 Blood Culture, Received Pending Assessment/Plan 89-year-old woman with hypertension, COPD, hypothyroidism, chronic diastolic congestive heart failure (CHF), who presented to the ED with a 1 week history of increasing shortness of breath and cough productive of yellow sputum and found to have a low grade temp, hypoxemia, leukocytosis with imaging showing a left lower lobe consolidation c/w pneumonia. The patient also has an elevated proBNP and may have an element of volume overload though her exam is grossly euvolemic. Plan: 1. Pneumonia: Presented with worsening dyspnea with productive cough , found to be hypoxemic, has leukocytosis and CT showing LLL consolidation -continue empiric ceftriaxone/doxy -Sputum culture -Strep and legionella urine antigens -supplemental oxygen -incentive spirometry -check procalcitonin 2. COPD: -Received IV methylprednisolone 125mg in the ED and duonebs, felt well at time of my exam -Hold further steroids for now while pursuing infectious etiology and on antibiotics, if procalcitonin is low and suspicion for infection becomes low, will treat with 5d of pred 40 for COPD exacerbation -continue symbicort, duonebs Q6H, albuterol nebs Q4H PRN 3. chronic diastolic HF -elevated BNP without adeel overload on exam -will not give diuresis tonight given c/f infection 3. Hypertension. -Continue home lisinopril 4. Hypothyroidism -TSH 1.21 - continue home levothyroxine 5. DVT px - Lovenox 40 QD Diet: regular Plan / VTE VTE Prophylaxis Ordered?: Yes AKUA GRANT MD Jul 11, 2019 01:32
[2019-07-11] MEDS: LEVOTHYROXINE 75MCG TABLET (0.075MG) PO SCH (05:35)
[2019-07-11] MEDS: ENOXAPARIN 40 MG/0.4 ML SYRINGE (J1650) SC SCH (05:36)
[2019-07-11 06:00] VITALS: BP 117/57
[2019-07-11 06:00] LABS: HEMATOCRIT 39.7 % (36.0-47.0); HEMOGLOBIN 12.9 g/dl (12.0-15.5); MEAN CORPUSCULAR HEMOGLOBIN 33.8 pg (27.0-33.0); MEAN CORPUSCULAR HGB CONC 32.5 g/dl (32.0-36.5); MEAN CORPUSCULAR VOLUME 103.9 fl (80.0-96.0); PLATELET COUNT, AUTOMATED 229 10^3/uL (150-450); RED BLOOD COUNT 3.82 10^6/uL (4.00-5.40); WHITE BLOOD COUNT 15.4 10^3/uL (4.0-10.0)
[2019-07-11] MEDS: IPRATROPIUM 0.5MG/ALBUTEROL 2.5MG INH SOL UD 3ML (DUONEB)(J7620) INH SCH ×4 (06:02→20:00)
[2019-07-11 06:10] LABS: BLOOD UREA NITROGEN 14 MG/DL (7-18); CALCIUM LEVEL 8.6 MG/DL (8.8-10.2); CARBON DIOXIDE LEVEL 29 MEQ/L (21-32); CHLORIDE LEVEL 104 MEQ/L (98-107); CREATININE FOR GFR 0.84 MG/DL (0.55-1.30); GLOMERULAR FILTRATION RATE > 60.0 (>32); GLUCOSE, FASTING 162 MG/DL (70-100); MAGNESIUM LEVEL 2.3 MG/DL (1.8-2.4); POTASSIUM SERUM 3.9 MEQ/L (3.5-5.1); SODIUM LEVEL 138 MEQ/L (136-145)
[2019-07-11] MEDS: SYMBICORT 80/4.5MCG INHALER 6GM INH SCH ×2 (07:42→20:54)
[2019-07-11] MEDS: LISINOPRIL 10 MG TAB PO SCH (08:45)
[2019-07-11] MEDS: cefTRIAXone SOD 2 GM in D5W MINI-BAG PLUS 50 ML IV SCH (08:47)
[2019-07-11] MEDS ORDERED: PREVNAR 13 VACCINE SYRINGE (CPT CODE:90670) IM ONE (09:00)
--- NOTE | 2019-07-11 10:11 | REP ---
Chest x-ray: Two views. History: Dyspnea and cough. Comparison study: March 19, 2018 and December 09, 2017. Findings: There is an area of chronic fibrosis and/or atelectasis in the distribution of the right middle lobe unchanged from the November 2017 study and the February 2018 study. The lungs are hyperinflated. Interstitial markings are diffusely prominent consistent with COPD and interstitial fibrosis. This is felt to be unchanged allowing for technique differences. No definite acute infiltrate. Heart size is borderline. Emphysematous changes are noted in the upper lobes. Impression: COPD with interstitial fibrosis. Chronic pleuroparenchymal fibrotic changes right middle lobe. Borderline heart size. No definite acute infiltrate. Electronically Signed by Chito Ramirez MD 07/11/2019 10:18 A
[2019-07-11] MEDS: DOXYCYCLINE HYCLATE 100 MG in D5W MINI-BAG PLUS 100 ML IV SCH ×2 (11:13→23:02)
[2019-07-11 14:00] VITALS: BP 120/59
--- NOTE | 2019-07-11 14:40 | IPNPDOC ---
Date Seen The patient was seen on 07/11/19. Progress Note SUBJECTIVE: Patient tells me that she is feeling better, her shortness of breath is improved she still has a cough she does not feel back to normal she did get up and inability to the bathroom with some difficulty but certainly improved from prior to her hospitalization. otherwise patient denies chest pain, nausea, vomiting, fevers, chills OBJECTIVE PHYSICAL EXAMINATION: VITAL SIGNS: Please see below. GENERAL: Pleasant elderly female sitting up in bed awake alert oriented speaking in complete sentences no acute distress HEENT: Moist mucous membranes no elevation in CVP CARDIOVASCULAR: S1 S2 regular no additional heart sounds appreciated. RESPIRATORY: Clear to auscultation bilaterally. ABDOMINAL: Bowel sounds present abdomen soft and nontender EXTREMITIES: No clubbing cyanosis or edema NEUROLOGICAL: Spontaneously moves all 4 extremities cranial 2 through 12 grossly intact no gross focal deficits appreciated PSYCHOLOGICAL: Appropriate LABORATORY DATA, MICROBIOLOGY: Please see below. IMAGING STUDIES: Duplex ultrasound:No sonographic evidence of deep vein thrombosis. Chest x-ray:COPD with interstitial fibrosis. Chronic pleuroparenchymal fibrotic changes right middle lobe. Borderline heart size. No definite acute infiltrate. CT angiography:1. No CT evidence of pulmonary embolism. 2. Small left greater than right pleural effusions. 3. Mild central peribronchial thickening, suggestive of airway inflammation. 4. Moderate emphysema. 5. Additional findings, as above. ASSESSMENT AND PLAN: This is a 89-year-old female presented with shortness of breath felt to be secondary to community acquired pneumonia. PROBLEMS: 1 shortness of breath: Secondary to community-acquired pneumonia. She is improving with her current therapy of ceftriaxone and doxycycline. As such we will continue this and continue to monitor closely she is improving and not requiring any oxygen at rest at this time. She has a history of COPD and is continued on DuoNeb's there is felt that she did not have an acute decompensation and as such is not on any steroids she does have a small pleural effusion on her CT scan of the chest harsh doesn't appear to be improving with a mention measures without any diuresis and her exam is not impressive for hypervolemia at this time. 2 hypothyroidism: Continue Synthroid. 3 hypertension: Controlled continue lisinopril. DVT prophylaxis: Lovenox DISPOSITION: Pending clinical improvement possibly home within the next 24-48 hours. This note was generated in part or whole with a voice recognition software. Voice recognition is usually quite accurate but often erros do occur. I apologize for any typographical errors that were not detected and corrected. VS, I&O, 24H, Fishbone Vital Signs/I&O Vital Signs Date Time Temp Pulse Resp B/P (MAP) Pulse Ox O2 Delivery O2 Flow Rate FiO2 07/11/19 08:51 2.0 07/11/19 08:45 133/97 07/11/19 06:00 97.0 72 18 97 Nasal Cannula I&O- Last 24 Hours up to 6 AM 07/11/19 05:59 Intake Total 300 ml Output Total 0 ml Balance 300 ml Laboratory Data 24H LABS Laboratory Tests 2 07/10/19 18:29: Blood Gas Bicarbonate Standard 23.3, Arterial Blood pH 7.427, Arterial Blood Partial Pressure CO2 34.8L, Arterial Blood Partial Pressure O2 66.1L, Arterial Blood Total CO2 23.5, Arterial Blood HCO3 22.4, Arterial Blood Base Excess -1.3, Arterial Blood Oxygen Saturation 94.4L 07/10/19 18:52: Immature Granulocyte % (Auto) 1.3, Neutrophils (%) (Auto) 89.9H, Lymphocytes (%) (Auto) 3.7L, Monocytes (%) (Auto) 4.7, Eosinophils (%) (Auto) 0.1, Basophils (%) (Auto) 0.3, Neutrophils # (Auto) 16.9H, Lymphocytes # (Auto) 0.7L, Monocytes # (Auto) 0.9H, Eosinophils # (Auto) 0.0, Basophils # (Auto) 0.1, Nucleated Red Blood Cells % (auto) 0.0, Prothrombin Time 15.0H, Prothromb Time International Ratio 1.21, D-Dimer, Quantitative 1109.78H, Anion Gap 4L, Glomerular Filtration Rate > 60.0, Lactic Acid Level 1.5, Calcium Level 8.4L, Total Creatine Kinase 64, Creatine Kinase MB 1.3, Creatine Kinase MB Relative Index 2.03, Troponin I < 0.02, XP-Vzo-I-Type Natriuretic Peptide 1377H, Thyroid Stimulating Hormone (TSH) 1.210 07/10/19 23:22: 07/11/19 05:30: Nucleated Red Blood Cells % (auto) 0.0, Anion Gap 5L, Glomerular Filtration Rate > 60.0, Calcium Level 8.6L, Magnesium Level 2.3 CBC/BMP Laboratory Tests 07/10/19 18:52 07/11/19 05:30 Microbiology Microbiology 07/10/19 Blood Culture, Received Pending 07/10/19 Blood Culture, Received Pending ULISES GUPTA MD Jul 11, 2019 14:40
[2019-07-11 22:00] VITALS: BP 127/63
[2019-07-12] MEDS: IPRATROPIUM 0.5MG/ALBUTEROL 2.5MG INH SOL UD 3ML (DUONEB)(J7620) INH SCH ×4 (00:14→20:00)
[2019-07-12] MEDS: LEVOTHYROXINE 75MCG TABLET (0.075MG) PO SCH (05:41)
[2019-07-12] MEDS: ENOXAPARIN 40 MG/0.4 ML SYRINGE (J1650) SC SCH (05:41)
[2019-07-12 06:00] VITALS: BP 134/62
[2019-07-12 06:14] LABS: HEMATOCRIT 37.3 % (36.0-47.0); HEMOGLOBIN 12.2 g/dl (12.0-15.5); MEAN CORPUSCULAR HEMOGLOBIN 34.2 pg (27.0-33.0); MEAN CORPUSCULAR HGB CONC 32.7 g/dl (32.0-36.5); MEAN CORPUSCULAR VOLUME 104.5 fl (80.0-96.0); PLATELET COUNT, AUTOMATED 248 10^3/uL (150-450); RED BLOOD COUNT 3.57 10^6/uL (4.00-5.40); WHITE BLOOD COUNT 11.2 10^3/uL (4.0-10.0)
[2019-07-12 06:35] LABS: BLOOD UREA NITROGEN 18 MG/DL (7-18); CALCIUM LEVEL 8.4 MG/DL (8.8-10.2); CARBON DIOXIDE LEVEL 30 MEQ/L (21-32); CHLORIDE LEVEL 106 MEQ/L (98-107); CREATININE FOR GFR 0.74 MG/DL (0.55-1.30); GLOMERULAR FILTRATION RATE > 60.0 (>32); GLUCOSE, FASTING 87 MG/DL (70-100); POTASSIUM SERUM 3.6 MEQ/L (3.5-5.1); SODIUM LEVEL 139 MEQ/L (136-145)
[2019-07-12] MEDS: SYMBICORT 80/4.5MCG INHALER 6GM INH SCH ×2 (08:31→20:33)
[2019-07-12] MEDS: OCUVITE 1 TAB PO SCH ×2 (09:04→20:12)
[2019-07-12] MEDS: cefTRIAXone SOD 2 GM in D5W MINI-BAG PLUS 50 ML IV SCH (09:04)
[2019-07-12] MEDS: LISINOPRIL 10 MG TAB PO SCH (09:07)
[2019-07-12] MEDS: DOXYCYCLINE HYCLATE 100 MG in D5W MINI-BAG PLUS 100 ML IV SCH ×2 (12:24→22:35)
[2019-07-12 14:00] VITALS: BP 104/49
--- NOTE | 2019-07-12 14:04 | IPNPDOC ---
Date Seen The patient was seen on 07/12/19. Progress Note SUBJECTIVE: Stephanie Padilla is an 89-year-old white female, initially presenting on 07/10/2019 with shortness of breath. Patient is seen today at bedside. She claims that she doesn't feel back to her baseline and thinks there is something else going on besides pneumonia. She has a productive cough and produced a sputum sample that was sent for culture earlier today. She currently denies any chest pain or shortness of breath, nausea, vomiting, fever or chills. OBJECTIVE PHYSICAL EXAMINATION: VITAL SIGNS: Please see below. GENERAL: Patient is seen lying in her bed, pleasant and cooperative, alert and oriented and in no acute distress HEENT:. Normocephalic, atraumatic. PERRLA. EOMI no scleral icterus. No nasal discharge. No tracheal deviation. No JVD noted CARDIOVASCULAR:. Regular rate and rhythm. Normal S1 and S2. No murmurs, rubs or gallops noted. RESPIRATORY:. Bilateral Rales were noted in her lower lobes, more predominantly on her left. ABDOMINAL:. No lesions noted. Normal bowel sounds in all 4 quadrants. No tenderness to palpation, rebound, guarding or rigidity EXTREMITIES:. 2/4 pulses noted in her distal extremities no clubbing or edema noted. No calf Swelling or tenderness on palpation NEUROLOGICAL: Spontaneous movement of all 4 extremities. No focal deficits noted PSYCHOLOGICAL:. Patient reported depressed mood and affect reflected this LABORATORY DATA, MICROBIOLOGY: Please see below. Imagin07/10/2019 Lower extremity duplex ultrasound: No sonographic evidence of DVT 07/10/2019. Chest x-ray: COPD with interstitial fibrosis. Borderline heart size. No definite acute infiltrate 07/10/2019 CT angiography: No evidence of PE. Small left greater than right pl eural effusions. Moderate emphysema. Mild central peribronchial thickening suggestive of airway inflammation DVT prophylaxis ordered?: Patient currently being treated with Lovenox 40 mg SC daily ASSESSMENT AND PLAN: This is an 89-year-old white female with history of COPD presenting with shortness of breath found to have left lower lobe pneumonia. PROBLEMS: #Shortness of breath: -Patient has shown improvement in her SOB with her current treatment of ceftriaxone and Doxycycline. -Sputum culture sent out this morning reported multiple gram-positive rods and few gram-positive cocci in chains. -She still has productive cough. We will prescribe her Mucinex and instruct her in the use of Acapella to break up some of these secretions. Additionally, we will monitor Ambulatory O2 sats. -Continue Duonebs and Symbicort #Hypothyroidism: Patient will be continued with levothyroxine 75 g by mouth daily #Hypertension: BPs stable. Continue with lisinopril 10 mg by mouth daily #DVT Prophylaxis: Patient currently being treated with Lovenox 40 mg SC daily DISPOSITION: Pending clinical improvement in SOB. Likely discharge in 24-48h given improvement in symptoms. VS, I&O, 24H, Fishbone Vital Signs/I&O Vital Signs Date Time Temp Pulse Resp B/P (MAP) Pulse Ox O2 Delivery O2 Flow Rate FiO2 07/12/19 09:07 158/77 07/12/19 06:00 98.0 76 18 94 Nasal Cannula 2.0 I&O- Last 24 Hours up to 6 AM 07/12/19 06:00 Intake Total 1490 ml Output Total 750 ml Balance 740 ml Laboratory Data 24H LABS Laboratory Tests 2 07/12/19 05:52: Nucleated Red Blood Cells % (auto) 0.0, Anion Gap 3L, Glomerular Filtration Rate > 60.0, Calcium Level 8.4L CBC/BMP Laboratory Tests 07/12/19 05:52 Microbiology Microbiology 07/12/19 Gram Stain - Final, Resulted 07/12/19 Sputum Culture, Resulted Pending 07/10/19 Blood Culture - Preliminary, Resulted No growth after 24 hours . All specim... 07/10/19 Blood Culture - Preliminary, Resulted No growth after 24 hours . All specim... GME ATTESTATION GME ATTESTATION My faculty preceptor for this patient encounter was physically present during the encounter and was fully available. All aspects of the patient interview, examination, medical decision making process, and medical care plan development were reviewed and approved by the faculty preceptor. The faculty preceptor is aware and concurs with the plan as stated in the body of this note and will attest to such by his/her cosignature. ISIDRO DUENAS-3 Jul 12, 2019 14:04 MARIA G GUARDADO MD Jul 12, 2019 15:41
[2019-07-12] MEDS: guaiFENesin ER 600 MG TAB PO SCH ×2 (14:57→20:12)
[2019-07-12 22:00] VITALS: BP 131/74
[2019-07-13] MEDS: IPRATROPIUM 0.5MG/ALBUTEROL 2.5MG INH SOL UD 3ML (DUONEB)(J7620) INH SCH ×2 (02:00→08:00)
[2019-07-13 06:00] VITALS: BP 133/61
[2019-07-13] MEDS: LEVOTHYROXINE 75MCG TABLET (0.075MG) PO SCH (06:06)
[2019-07-13] MEDS: ENOXAPARIN 40 MG/0.4 ML SYRINGE (J1650) SC SCH (06:06)
[2019-07-13 06:13] LABS: HEMATOCRIT 36.7 % (36.0-47.0); HEMOGLOBIN 11.9 g/dl (12.0-15.5); MEAN CORPUSCULAR HEMOGLOBIN 33.5 pg (27.0-33.0); MEAN CORPUSCULAR HGB CONC 32.4 g/dl (32.0-36.5); MEAN CORPUSCULAR VOLUME 103.4 fl (80.0-96.0); PLATELET COUNT, AUTOMATED 265 10^3/uL (150-450); RED BLOOD COUNT 3.55 10^6/uL (4.00-5.40)
[2019-07-13 06:35] LABS: BLOOD UREA NITROGEN 18 MG/DL (7-18); CALCIUM LEVEL 8.4 MG/DL (8.8-10.2); CARBON DIOXIDE LEVEL 28 MEQ/L (21-32); CHLORIDE LEVEL 110 MEQ/L (98-107); CREATININE FOR GFR 0.61 MG/DL (0.55-1.30); GLOMERULAR FILTRATION RATE > 60.0 (>32); GLUCOSE, FASTING 86 MG/DL (70-100); POTASSIUM SERUM 3.4 MEQ/L (3.5-5.1); SODIUM LEVEL 143 MEQ/L (136-145)
[2019-07-13] MEDS: SYMBICORT 80/4.5MCG INHALER 6GM INH SCH (08:37)
[2019-07-13 08:46] VITALS: BP 128/59
[2019-07-13] MEDS: guaiFENesin ER 600 MG TAB PO SCH (08:46)
[2019-07-13] MEDS: LISINOPRIL 10 MG TAB PO SCH (08:46)
[2019-07-13] MEDS: cefTRIAXone SOD 2 GM in D5W MINI-BAG PLUS 50 ML IV SCH (08:47)
[2019-07-13] MEDS: OCUVITE 1 TAB PO SCH (08:47)
[2019-07-13] MEDS ORDERED: POTASSIUM CHLORIDE 10 MEQ SR TABLET PO ONE (09:00)
[2019-07-13 10:20] LABS: FOLATE 13.5 NG/ML (>5.4)
[2019-07-13] MEDS: DOXYCYCLINE HYCLATE 100 MG in D5W MINI-BAG PLUS 100 ML IV SCH (11:00)
[2019-07-13] MEDS ORDERED: CEFD1CAP8 PO (11:03)
[2019-07-13] MEDS ORDERED: DOXY100C PO (11:03)
--- NOTE | 2019-07-13 13:58 | DS.PDOC ---
Discharge Summary General Date of Admission Jul 10, 2019 at 21:48 Date of Discharge Jul 13, 2019 Attending Physician: WINDY SALINAS MD Discharge Summary PROCEDURES PERFORMED DURING STAY: [None]. ADMITTING DIAGNOSES: 1. Shortness of breath secondary to pneumonia. 2. COPD 3. Chronic diastolic heart failure. 4. Hypothyroidism. 5. Hypertension DISCHARGE DIAGNOSES: 1. Community Acquired Pneumonia. 2. COPD 3. Chronic diastolic heart failure. 4. Hypothyroidism. 5. Hypertension 6.Mild Macrocytic Anemia 7. Hypokalemia COMPLICATIONS/CHIEF COMPLAINT: Pneumonia. HISTORY OF PRESENT ILLNESS: 89-year-old woman with hypertension, COPD, hypothyroidism, chronic diastolic congestive heart failure (CHF), who presented to the ED with a 1 week history of increasing shortness of breath and cough productive of yellow sputum, without any hemoptysis, fevers or chills. She reports that when the symptoms started she thought that it was her COPD but with the worsening of her shortness of breath limiting her mobility, she asked her son (who lives with her) to take her to the hospital. She otherwise denied any chest pain, palpitations, sore throat, congestion, recent cold symptoms or prolonged travel or history of clots. She also did not endorse any abdominal pain, nausea, vomiting, diarrhea, dysuria or hematuria. While in the emergency department, she arrived hemodynamically stable with a low grade temp to 100.2 and was noted to by hypoxemic to 82% on room air and placed on nasal canula with improvement. Studies revealed a leukocytosis to 18.8, Cr 0.79, troponin, TSH and lactate within normal limits with a +Ddimer that prompted a LE doppler US that showed no evidence of DVT and a CTA chest PE protocol that showed no PE but presence of a left lower lobe consolidation c/f pneumonia. She was given ceftriaxone/azithro and admitted to medicine for management of PNA. Of note, a proBNP was checked and notably elevated to 1377. HOSPITAL COURSE: On presentation, patient was noted to have a leukocytosis of 18.8 and a positive d-dimer. Albuterol/ipratropium nebulizers as well as methy lprednisolone was ordered for possible COPD exacerbation. TSH was within normal limits at 1.2. proBNP was noted to be elevated at 1377. Diuresis was withheld due to evidence of pneumonia. She was subsequently ordered a duplex lower extremity ultrasound, CXR and CTA which were negative for DVTs or PEs, however, showed a left lower lobe consolidation. IV ceftriaxone/doxycycline was initiated for patient's pneumonia. Patient was educated in incentive spirometry. Enoxaparin 40 mg was administered for DVT prophylaxis. Patient was continued on lisinopril and levothyroxine for her hypertension and hypothyroidism respectively. Patient was administered pneumococcal vaccine. Sputum Gram stain and culture was performed and showed gram-positive cocci. Patient's incentive spirometry was discontinued and patient was educated in using an Acapella as well as prescribed guaifenesin in order to break up any secretions. Patient's CBC revealed macrocytosis. Folate and B12 levels were ordered and were within normal limits. Patient had declining potassium levels, from an initial value of 4.1 down to 3.4. Patient was repleted with a 40 mEq potassium supplement. Patient was afebrile for 48 hours, and white blood cell count showed downtrend from 18.8 to 7.0. DISCHARGE MEDICATIONS: Please see below. ALLERGIES: Please see below. PHYSICAL EXAMINATION ON DISCHARGE: VITAL SIGNS: Please see below. GENERAL:. Patient was lying comfortably in her hospital bed. She was awake, alert, oriented and in no acute distress HEENT:. Normocephalic, atraumatic. PERRLA. EOMI no scleral icterus noted. No nasal discharge, trachea midline NECK:. No JVD noted, no thyroid enlargement or nodules CARDIOVASCULAR EXAMINATION:. Regular rate and rhythm. Normal S1 and S2. No murmurs, rubs or gallops noted RESPIRATORY EXAMINATION:. Symmetrical chest wall expansion. Lungs clear to auscultation ABDOMINAL EXAMINATION:. No lesions noted. Normal bowel sounds in all 4 quadrants, tympanic throughout. No pain, tenderness, guarding or rigidity EXTREMITIES:. 2 out of 4 pulses noted throughout. No calf swelling or pain noted NEUROLOGICAL EXAMINATION: Spontaneous movement of all 4 extremities. No focal deficits noted PSYCHIATRIC EXAMINATION:. Mood: Patient reported feeling back to baseline and was ready to return home, affect reflected this LABORATORY DATA: Please see below. IMAGIN07/10/2019 Lower extremity duplex ultrasound: No sonographic evidence of DVT 07/10/2019. Chest x-ray: COPD with interstitial fibrosis. Borderline heart size. No definite acute infiltrate 07/10/2019 CT angiography: No evidence of PE. Small left greater than right pleural effusions. Moderate emphysema. Mild central peribronchial thickening suggestive of airway inflammation PROGNOSIS: Good ACTIVITY: [As tolerated]. DIET: Consistent carbohydrate diet DISCHARGE PLAN: -Continue all medication as prescribed -Follow-up with PCP within 7 days - Return to the ER if you experience any problems DISPOSITION: 01 Home, Self-Care. DISCHARGE CONDITION: [Stable]. TIME SPENT ON DISCHARGE: Greater than 40 minutes. Vital Signs/I&Os Vital Signs Date Time Temp Pulse Resp B/P (MAP) Pulse Ox O2 Delivery O2 Flow Rate FiO2 07/13/19 08:46 128/59 07/13/19 06:00 97.6 71 18 92 Nasal Cannula 2.0 I&O- Last 24 Hours up to 6 AM 07/13/19 05:59 Intake Total 1600 ml Output Total 1250 ml Balance 350 ml Laboratory Data Labs 24H Laboratory Tests 2 07/13/19 05:54: Nucleated Red Blood Cells % (auto) 0.0, Differential Slide Review Report, Peripheral Blood Smear Path Consult PERIPHERAL SMEAR, Anion Gap 5L, Glomerular Filtration Rate > 60.0, Calcium Level 8.4L 07/13/19 08:18: Vitamin B12 Level 688, Folate 13.5 CBC/BMP Laboratory Tests 07/13/19 05:54 Microbiology Microbiology 07/12/19 Gram Stain - Final, Resulted 07/12/19 Sputum Culture, Resulted Pending 07/10/19 Blood Culture - Preliminary, Resulted No Growth after 48 hours. All Specime... 07/10/19 Blood Culture - Preliminary, Resulted No Growth after 48 hours. All Specime... Discharge Medications Scheduled Calcium Carbonate/Vitamin D3 (Calcium 600-Vit D3 400 Tablet) 1 Each Tablet, 1 TAB PO DAILY, (Reported) Cefdinir (Cefdinir) 300 Mg Capsule, 300 MG PO BID Diphenhydramine HCl (Diphenhydramine HCl) 25 Mg Capsule, 25 MG PO QHS, (Reported) Doxycycline Hyclate (Doxycycline Hyclate) 100 Mg Capsule, 100 MG PO BID Fluticasone/Umeclidin/Vilanter (Trelegy Ellipta 100-62.5-25) 1 Each Blst.w.dev, 1 PUFF IN DAILY, (Reported) Levothyroxine Sodium (Synthroid) 75 Mcg Tab, 75 MCG PO DAILY, (Reported) Lisinopril (Lisinopril) 10 Mg Tab, 10 MG PO DAILY, (Reported) Vit A/Vit C/Vit E/Zinc/Copper (Preservision Areds Softgel) 1 Each Capsule, 1 CAP PO BID, (Reported) Scheduled PRN Acetaminophen (Acetaminophen) 500 Mg Tablet, 1,000 MG PO Q6H PRN for PAIN, (Reported) Albuterol Sulf (Albuterol Sulfate) 2.5 Mg/3 Ml Nebu, 2.5 MG INH Q4H PRN for SHORTNESS OF BREATH, (Reported) Albuterol Sulfate (Proair Hfa) 108 Mcg/Act Aer, 2 PUFFS INH QID PRN for SHORTNESS OF BREATH, (Reported) Propylene Glycol/Peg 400 (Systane 0.3-0.4% Eye Drops) 15 Ml Monik, 1 DROP OU PRN PRN for DRY EYES, (Reported) [leg cramp relief] , 1 TAB PO Q4H PRN for LEG CRAMPS, (Reported) Allergies Coded Allergies: Aminoglycosides (Verified Allergy, Unknown, 07/10/19) bacitracin (Verified Allergy, Unknown, 07/10/19) neomycin (Verified Allergy, Unknown, 07/10/19) polymyxin B (Verified Allergy, Unknown, 07/10/19) GME ATTESTATION GME ATTESTATION My faculty preceptor for this patient encounter was physically present during the encounter and was fully available. All aspects of the patient interview, examination, medical decision making process, and medical care plan development were reviewed and approved by the faculty preceptor. The faculty preceptor is aware and concurs with the plan as stated in the body of this note and will attest to such by his/her cosignature. ATTENDING NOTE I, Windy Salinas, have independently examined this patient and performed my own physical exam, as well as reviewed the documentation and edited where necessary. I have discussed in detail with the resident / student the findings and plan of treatment as documented by the resident / student and edited their note. I agree with their findings and treatment plan and have edited their documentation. I will continue to follow the patient during this hospital stay. Time spent on discharge 35 minutes ISIDRO DUENAS OMS-3 Jul 13, 2019 13:58 MARIA G GUARDADO MD Jul 13, 2019 15:00 WINDY SALINAS MD Jul 13, 2019 16:35
[2019-07-15 00:15] LABS: BODY FLUID CULTURE Not Indicated (.); LEGIONELLA ANTIGEN URINE Negative (Negative); ORGANISM ID Not indicated. (.); SPECIMEN SOURCE Urine (.)
[2019-07-16 15:40] LABS: URINE STREP PNEUMONIAE ANTIGEN Positive (Negative)
== END 2019-07-13 12:00 | disposition home or self-care (01) | DRG 194 ==
LOC: M ED 17:54 → M ED INP 21:48 → M MSPAV 23:35
PROVIDERS: ADMIT Internal Medicine; ATTEND Internal Medicine
DX: J18.9 Pneumonia, unspecified organism (principal); I50.32 Chronic diastolic (congestive) heart failure; J44.1 Chronic obstructive pulmonary disease with (acute) exacerbation; J44.0 Chronic obstructive pulmonary disease with (acute) lower respiratory infection; I11.0 Hypertensive heart disease with heart failure; E03.9 Hypothyroidism, unspecified; Z88.1 Allergy status to other antibiotic agents; Z88.8 Allergy status to other drugs, medicaments and biological substances; Z79.899 Other long term (current) drug therapy; Z90.49 Acquired absence of other specified parts of digestive tract; Z90.79 Acquired absence of other genital organ(s); Z87.891 Personal history of nicotine dependence; E87.6 Hypokalemia; D53.9 Nutritional anemia, unspecified

== ENCOUNTER → 2019-07-23 | Outpatient (CLI) | payer MEDICARE ==
[~2019-07-23] MED LIST changes: +ACET-683 PO; +CALC600T6 PO; +CRAMP RELIEF PO; +DIPH25CA32 PO; +DOXY100C PO; +PRESCAP PO; +TREL1AER IN
[2019-07-23 13:26] LABS: BASO # 0.1 10^3/uL (0.0-0.2); BASO % 1.7 % (0.0-1.0); EOS # 0.2 10^3/uL (0.0-0.5); HEMATOCRIT 40.4 % (36.0-47.0); HEMOGLOBIN 12.8 g/dl (12.0-15.5); LYMPH # 1.5 10^3/uL (1.5-5.0); LYMPH % 19.6 % (24.0-44.0); MEAN CORPUSCULAR HEMOGLOBIN 33.2 pg (27.0-33.0); MEAN CORPUSCULAR HGB CONC 31.7 g/dl (32.0-36.5); MEAN CORPUSCULAR VOLUME 104.7 fl (80.0-96.0); MONO # 0.6 10^3/uL (0.0-0.8); MONO % 7.4 % (0.0-5.0); NEUTROPHILS # 5.1 10^3/uL (1.5-8.5); NEUTROPHILS % 67.9 % (36.0-66.0); PLATELET COUNT, AUTOMATED 514 10^3/uL (150-450); RED BLOOD COUNT 3.86 10^6/uL (4.00-5.40); WHITE BLOOD COUNT 7.4 10^3/uL (4.0-10.0)
[2019-07-23 13:59] LABS: ALBUMIN 3.8 GM/DL (3.2-5.2); BILIRUBIN,TOTAL 0.3 MG/DL (0.2-1.0); CALCIUM LEVEL 8.9 MG/DL (8.8-10.2); CHOLESTEROL RISK RATIO 2.574 (<5); CREATININE FOR GFR 0.94 MG/DL (0.55-1.30); FREE T4 1.07 NG/DL (0.76-1.46); POTASSIUM SERUM 4.7 MEQ/L (3.5-5.1); THYROID STIMULATING HORMONE 2.6 uIU/ML (0.358-3.740); TOTAL PROTEIN 6.3 GM/DL (6.4-8.2)
== END ==
LOC: M SMT 11:49
PROVIDERS: ATTEND Family Medicine
DX: R10.32 Left lower quadrant pain (principal); J44.9 Chronic obstructive pulmonary disease, unspecified; E78.2 Mixed hyperlipidemia; E03.8 Other specified hypothyroidism

== ENCOUNTER → 2019-07-29 | Outpatient (CLI) | payer MEDICARE ==
[~2019-07-29] MED LIST changes: +GASTROGRAFIN SOLUTION 30ML (Q9963) As Ordered ONE; +ISOVUE-370 76% 100ML VIAL (Q9967) As Ordered ONE
--- NOTE | 2019-07-29 17:13 | REP ---
CT of the abdomen and pelvis with IV and oral contrast: There are no comparisons. The patient has a left lower quadrant pain and weight loss. Within the visualized lower lung palafox, there is a right lower lobe 10 mm lung nodule with irregular margins. Just inferior to this is a second right lower lobe lung nodule measuring 11 mm. Medial to these nodules, there are linear densities in right lower lobe. There are multiple small lucencies in both right and left lobes of the liver compatible with hepatic cysts. No other hepatic lesions are identified. The gallbladder is unremarkable. The pancreas is unremarkable. There is a 12 ml calcified nodule in the spleen, likely a calcified granuloma. The adrenals are unremarkable. The kidneys are unremarkable. The abdominal aorta is unremarkable except for calcified atheroma. There is no periaortic adenopathy or mass. The bowel loops are unremarkable. The bowel contrast has reached distal small bowel loops but has not reached the colon at the time of scanning. Pelvis: The the patient. The patient reportedly has an appendectomy and hysterectomy. The bladder is unremarkable. There is no adenopathy or ascites. The pelvic bowel loops are unremarkable. There are no lytic, blastic or destructive skeletal changes. There is multilevel degenerative disc disease in the lumbar spine. Impression: There are lung nodules in the right lower lobe as described. There is no adenopathy, mass or ascites. The patient has an appendectomy and hysterectomy. There are multiple hepatic cysts. Electronically Signed by Shelton Robles MD 07/29/2019 05:04 P
== END ==
LOC: M RAD 14:44
PROVIDERS: ATTEND Family Medicine
DX: R10.32 Left lower quadrant pain (principal); R91.8 Other nonspecific abnormal finding of lung field; K76.9 Liver disease, unspecified
CPT/HCPCS: 74177; Q9963; Q9967

== ENCOUNTER → 2019-08-23 | Outpatient (REF) | payer MEDICARE ==
[~2019-08-23] MED LIST changes: -GASTROGRAFIN SOLUTION 30ML (Q9963) As Ordered ONE; -ISOVUE-370 76% 100ML VIAL (Q9967) As Ordered ONE
[2019-08-23 12:36] LABS: BASO # 0.1 10^3/uL (0.0-0.2); BASO % 1.3 % (0.0-1.0); EOS # 0.4 10^3/uL (0.0-0.5); HEMATOCRIT 40.7 % (36.0-47.0); HEMOGLOBIN 12.5 g/dl (12.0-15.5); LYMPH # 1.5 10^3/uL (1.5-5.0); LYMPH % 16.6 % (24.0-44.0); MEAN CORPUSCULAR HGB CONC 30.7 g/dl (32.0-36.5); MEAN CORPUSCULAR VOLUME 104.1 fl (80.0-96.0); MONO # 0.8 10^3/uL (0.0-0.8); MONO % 8.5 % (0.0-5.0); NEUTROPHILS # 6.2 10^3/uL (1.5-8.5); NEUTROPHILS % 68.9 % (36.0-66.0); PLATELET COUNT, AUTOMATED 491 10^3/uL (150-450); RED BLOOD COUNT 3.91 10^6/uL (4.00-5.40); WHITE BLOOD COUNT 8.9 10^3/uL (4.0-10.0)
[2019-08-23 12:57] LABS: ALBUMIN 3.4 GM/DL (3.2-5.2); ALT/SGPT 23 U/L (12-78); BILIRUBIN,TOTAL 0.7 MG/DL (0.2-1.0); BLOOD UREA NITROGEN 14 MG/DL (7-18); CALCIUM LEVEL 9.6 MG/DL (8.8-10.2); CARBON DIOXIDE LEVEL 28 MEQ/L (21-32); CHLORIDE LEVEL 106 MEQ/L (98-107); CREATININE FOR GFR 0.77 MG/DL (0.55-1.30); FREE T4 1.18 NG/DL (0.76-1.46); GLOMERULAR FILTRATION RATE > 60.0 (>32); GLUCOSE, FASTING 94 MG/DL (70-100); POTASSIUM SERUM 4.4 MEQ/L (3.5-5.1); SODIUM LEVEL 143 MEQ/L (136-145); TOTAL PROTEIN 6.5 GM/DL (6.4-8.2)
[2019-08-24 12:16] LABS: VITAMIN B12 LEVEL 1181 PG/ML (247-911)
== END ==
LOC: M LABDRAW1 12:10
PROVIDERS: ATTEND Family Medicine
DX: E03.8 Other specified hypothyroidism (principal); I10 Essential (primary) hypertension

== ENCOUNTER → 2019-08-26 | Outpatient (CLI) | payer MEDICARE ==
--- NOTE | 2019-08-26 15:24 | REP ---
Clinical: Pulmonary nodules for follow up. Technique: Axial contrast enhanced images from the thoracic inlet to the upper abdomen with coronal and sagittal re-formations using 100 ml Isovue 370 intravenous contrast material. Comparison: 03/19/2018, 12/26/2014. Findings: Advanced COPD/emphysematous changes with bronchiectasis and chronic area of collapse involving the medial right infrahilar lung zone remains similar to the 2015. Ill-defined areas of multinodular consolidation in the right base with the largest components measuring approximately 2.6 cm have increased since 07/29/2019. Pretracheal lymph node measures 9 mm short axis diameter and right hilar lymph node measures 10 mm short axis diameter. Further evaluation of the mediastinum demonstrates atherosclerotic changes to the thoracic aorta and coronary arteries without aortic aneurysm or dissection. No significant cardiomegaly. No pericardial effusion. Impression: 1. Increasing ill-defined nodular consolidations in the right lower lobe with the largest component measuring 2.6 cm. Few reactive lymph nodes measure up to 10 mm short axis diameter. Findings are nonspecific and differential diagnosis includes malignancy as well as pneumonia. Pulmonology consultation as well as PET-CT and tissue sampling should be considered. 2. Chronic underlying COPD/emphysematous changes with bronchiectasis and focal chronic small collapse. Electronically Signed by Gonzalo Gallagher MD 08/26/2019 03:16 P
== END ==
LOC: M RAD 14:19
PROVIDERS: ATTEND Family Medicine
DX: R91.1 Solitary pulmonary nodule (principal)

== ENCOUNTER → 2020-03-29 | Outpatient (CLI) | payer MEDICARE ==
[~2020-03-29] MED LIST changes: +CALC600T17 PO; -CALC600T6 PO
--- NOTE | 2020-03-29 23:24 | REP ---
REASON: Followup. All priors reviewed, the latest 08/26/2019. The lack of intravenous contrast decreases the sensitivity of exam. Although seen in a limited fashion, the mediastinum and pulmonary silviano do not appear to have significantly changed from the prior exam. There is no change in the imaged upper abdomen or imaged osseous structures. Evaluation of the lung palafox shows a new 9 mm sized irregular and somewhat spiculated nodule in the right lung apex. There is an additional right upper lobe nodule; however, it is stable. The ill-defined right middle lobe opacity with air bronchograms has improved slightly. There is better aeration seen today. There are other chronic lung field changes with lung field hyperexpansion and cylindrical bronchiectasis, status quo. IMPRESSION: 1. There is a new irregular, somewhat spiculated 9 mm sized nodule in the right lung apex. According to the revised Fleischner Society criteria, CT/PET is warranted at this time. 2. 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 An obstructing endobronchial lesion cannot be ruled out. 3. Chronic emphysematous changes. 4. Improvement in marked appearing basilar opacities, right greater than left, with only a subtle residual persisting. 5. Cylindrical bronchiectasis. Electronically Signed by Gabo Gates DO 03/30/2020 11:21 A
== END ==
LOC: M RAD 11:10
PROVIDERS: ATTEND Internal Medicine Pulmonary Disease
DX: R91.8 Other nonspecific abnormal finding of lung field (principal)

== ENCOUNTER 2020-12-15 11:29 | Emergency (ER) | payer MEDICARE ==
[~2020-12-15] VITALS: Ht 160 cm; Wt 50.0 kg
[~2020-12-15 11:29] MED LIST changes: +LISI10TA22 PO; -LISI10TA4 PO
[2020-12-15 12:21] LABS: VENOUS BASE EXCESS 2.5 (-2.0-2.0); VENOUS HCO3 28.9 MEQ/L (23.0-27.0); VENOUS O2 SATURATION 57.5 % (60.0-80.0); VENOUS PARTIAL PRESSURE CO2 52.3 mmHg (38.0-50.0); VENOUS PARTIAL PRESSURE O2 28.5 mmHg (30.0-50.0); VENOUS PH 7.361 UNITS (7.330-7.430); VENOUS STANDARD HCO3 25.7 MEQ/L; VENOUS TOTAL CO2 30.6 MEQ/L (24.0-28.0)
[2020-12-15 12:30] LABS: BASO # 0.1 10^3/uL (0.0-0.2); BASO % 1.5 % (0.0-1.0); EOS # 0.1 10^3/uL (0.0-0.5); EOS % 1.6 % (0.0-3.0); HEMATOCRIT 40.5 % (36.0-47.0); HEMOGLOBIN 12.8 g/dl (12.0-15.5); LYMPH # 1.1 10^3/uL (1.5-5.0); LYMPH % 20.8 % (24.0-44.0); MEAN CORPUSCULAR HEMOGLOBIN 32.4 pg (27.0-33.0); MEAN CORPUSCULAR HGB CONC 31.6 g/dl (32.0-36.5); MEAN CORPUSCULAR VOLUME 102.5 fl (80.0-96.0); MONO # 0.4 10^3/uL (0.0-0.8); MONO % 7.7 % (2.0-8.0); NEUTROPHILS # 3.7 10^3/uL (1.5-8.5); PLATELET COUNT, AUTOMATED 311 10^3/uL (150-450); RED BLOOD COUNT 3.95 10^6/uL (4.00-5.40); WHITE BLOOD COUNT 5.5 10^3/uL (4.0-10.0)
--- NOTE | 2020-12-15 12:31 | REP ---
INDICATION: DYSPNEA/COUGH. COMPARISON: 07/28/2019. TECHNIQUE: SINGLE PORTABLE AP VIEW OF THE CHEST WAS PERFORMED. FINDINGS: There are stable chronic fibrotic changes in the lung bases with no evidence of superimposed acute infiltrate. The heart does not appear to be significantly enlarged. The mediastinal silhouette is unchanged. IMPRESSION: NO ACUTE PULMONARY DISEASE.Stable chronic changes. <Electronically signed by Shelton Smith > 12/15/20 [id number]
[2020-12-15 12:41] LABS: INR 0.98; PROTHROMBIN TIME 13.2 SECONDS (12.5-14.3)
[2020-12-15 12:55] LABS: BILIRUBIN,DIRECT 0.1 MG/DL (0.0-0.2); BILIRUBIN,TOTAL 0.4 MG/DL (0.2-1.0); THYROID STIMULATING HORMONE 1.32 uIU/ML (0.358-3.740); THYROXINE (T4) 8.2 UG/DL (4.5-12.0); TOTAL PROTEIN 6.3 GM/DL (6.4-8.2)
[2020-12-15] MEDS ORDERED: methylPREDNISolone 125MG 2ML VIAL IV ONE (12:55)
[2020-12-15] MEDS ORDERED: ISOVUE-370 76% 100ML VIAL As Ordered ONE (13:57)
--- NOTE | 2020-12-15 14:43 | REP ---
INDICATION: chest pain/SOB. COMPARISON: 03/29/2020. TECHNIQUE: CT angiogram chest performed following the intravenous administration of 100 cc of Isovue 370. Sagittal and coronal reconstruction images are performed. FINDINGS: Lungs: Chronic consolidation is again noted in the right middle lobe as seen on prior studies. In the right lower lobe on image 60 there is a partially solid oval opacity which measures 1.1 cm in diameter.. Diffuse emphysematous and fibrotic changes are noted. Mediastinum: No adenopathy. Pulmonary arteries: No evidence of pulmonary embolism. Colleen: No adenopathy. Axilla: No adenopathy. Pleura: No effusion. Heart: Not enlarged. Thoracic aorta: No aneurysm or dissection. Upper abdominal structures: Several small hypodensities in the liver are consistent with cysts. There are calcified granulomas in the spleen. Visualized osseous structures: There are degenerative changes of the spine without compression deformity.. IMPRESSION: No CT evidence of pulmonary embolism. No infiltrate seen. Partially solid oval opacity right lower lobe 1.1 cm, recommend follow-up CT in 3-6 months. <Electronically signed by Shelton Smith > 12/15/20 [id number]
[2020-12-15] MEDS ORDERED: PRED10TA2 PO (15:01)
[2020-12-15 15:37] VITALS: BP 171/84
--- NOTE | 2020-12-15 22:21 | ECGEPIP ---
[facility] - ED Test Date: 2020-12-15 Pat Name: DAINELE HASTINGS Department: Room: - Gender: Female Production Administrative Assistant: GAVIOTA : [id number] Requested By: Kym Barahona Order Number: [id number] Reading MD: Bill Barraza Measurements Intervals Bandy Rate: 60 P: 86 TN: 150 QRS: 52 QRSD: 72 T: 51 QT: 384 QTc: 384 Interpretive Statements Normal sinus rhythm Similar to tracing done 07-10-19 but with decreased rate Electronically Signed on 12-15-2020 22:21:26 EDT by Bill Barraza
--- NOTE | 2020-12-18 12:28 | ED PDOC ---
Post-Departure Follow-Up cta chest faxed to felipe santos and letitia for fu Farhan Hester MD Dec 18, 2020 12:28
== END 2020-12-15 15:39 | disposition home or self-care (01) ==
LOC: M ED 11:29
DX: J44.1 Chronic obstructive pulmonary disease with (acute) exacerbation (principal); R91.8 Other nonspecific abnormal finding of lung field; E78.5 Hyperlipidemia, unspecified; Z87.891 Personal history of nicotine dependence; Z88.3 Allergy status to other anti-infective agents; Z79.899 Other long term (current) drug therapy
CPT/HCPCS: 71045; 71275; 80047; 80076; 82803; 83605; 83880; 84436; 84443; 84484; 85025; 85610; 87040; 87798; 93005; 93041; 96374; 99285; J2930; Q9967

== ENCOUNTER → 2021-01-08 | Outpatient (REF) | payer MEDICARE ==
[2021-01-08 12:59] LABS: BASO # 0.1 10^3/uL (0.0-0.2); BASO % 1.2 % (0.0-1.0); EOS # 0.4 10^3/uL (0.0-0.5); EOS % 4.7 % (0.0-3.0); HEMATOCRIT 43.7 % (36.0-47.0); HEMOGLOBIN 13.7 g/dl (12.0-15.5); LYMPH % 26.4 % (24.0-44.0); MEAN CORPUSCULAR HEMOGLOBIN 32.5 pg (27.0-33.0); MEAN CORPUSCULAR HGB CONC 31.4 g/dl (32.0-36.5); MEAN CORPUSCULAR VOLUME 103.6 fl (80.0-96.0); MONO # 0.6 10^3/uL (0.0-0.8); MONO % 7.4 % (2.0-8.0); NEUTROPHILS # 4.5 10^3/uL (1.5-8.5); NEUTROPHILS % 59.9 % (36.0-66.0); PLATELET COUNT, AUTOMATED 346 10^3/uL (150-450); RED BLOOD COUNT 4.22 10^6/uL (4.00-5.40); WHITE BLOOD COUNT 7.5 10^3/uL (4.0-10.0)
[2021-01-08 17:24] LABS: ALBUMIN 3.8 GM/DL (3.2-5.2); ALT/SGPT 27 U/L (12-78); BILIRUBIN,TOTAL 0.4 MG/DL (0.2-1.0); BLOOD UREA NITROGEN 18 MG/DL (7-18); CALCIUM LEVEL 9.3 MG/DL (8.8-10.2); CARBON DIOXIDE LEVEL 30 MEQ/L (21-32); CHLORIDE LEVEL 105 MEQ/L (98-107); CREATININE FOR GFR 0.79 MG/DL (0.55-1.30); FREE T4 0.98 NG/DL (0.76-1.46); GLOMERULAR FILTRATION RATE > 60.0 (>32); GLUCOSE, FASTING 85 MG/DL (70-100); SODIUM LEVEL 141 MEQ/L (136-145); TOTAL PROTEIN 6.4 GM/DL (6.4-8.2)
[2021-01-08 17:33] LABS: TOTAL 25(OH) VITAMIN D 24.4 NG/ML (30.0-100.0)
== END ==
LOC: M LABDRWAD 12:19
PROVIDERS: ATTEND Physician Assistant
DX: E03.8 Other specified hypothyroidism (principal)

== ENCOUNTER → 2021-01-15 | Outpatient (CLI) | payer MEDICARE ==
[~2021-01-15] MED LIST changes: +GASTROGRAFIN SOLUTION 30ML (Q9963) As Ordered ONE; +ISOVUE-370 76% 100ML VIAL As Ordered ONE
--- NOTE | 2021-01-15 18:12 | REP ---
INDICATION: LOWER ABD PAIN COMPARISON: 07/29/2019. TECHNIQUE: CT Scan of the abdomen and pelvis was performed with intravenous administration of 100 cc of Isovue 370, and oral contrast. FINDINGS: Lung bases: There are fibrotic changes again noted. Liver: Multiple cysts are again seen throughout the liver, the largest inferiorly in the right lobe measures 3.1 cm in maximum diameter. Gallbladder: Unremarkable. Spleen: Calcified granulomas are seen in the spleen. There is an enhancing nodule approximately 9 mm in diameter the again noted, unchanged, likely representing a hemangioma. Adrenals: Normal. Pancreas: Normal. Kidneys: There is an extrarenal pelvis bilaterally, unchanged, without hydronephrosis. Small and large bowel: There is sigmoid diverticulosis without acute diverticulitis. Free fluid: None. Abdominal aorta: No aneurysm or dissection. Adenopathy: None. Appendix: Prior appendectomy. Osseous structures: There are degenerative changes of the spine without compression deformity. Pelvis: No mass. Prior hysterectomy. IMPRESSION: Stable chronic findings as discussed in detail above. <Electronically signed by Shelton Smith > 01/15/21 [id number]
== END ==
LOC: M RAD 14:45
PROVIDERS: ATTEND Physician Assistant
DX: R10.9 Unspecified abdominal pain (principal)
CPT/HCPCS: 74177; Q9963; Q9967

== ENCOUNTER 2021-04-04 10:58 | Emergency (ER) | payer MEDICARE ==
[~2021-04-04] VITALS: Ht 162.6 cm; Wt 138.0 kg
[~2021-04-04 10:58] MED LIST changes: -DOXY100C37 PO; +DOXY1CAP62 PO; -GASTROGRAFIN SOLUTION 30ML (Q9963) As Ordered ONE; -ISOVUE-370 76% 100ML VIAL As Ordered ONE
[2021-04-04 12:03] LABS: BASO # 0.1 10^3/uL (0.0-0.2); BASO % 0.8 % (0.0-1.0); EOS # 0.2 10^3/uL (0.0-0.5); EOS % 2.6 % (0.0-3.0); HEMATOCRIT 39.9 % (36.0-47.0); HEMOGLOBIN 12.7 g/dl (12.0-15.5); LYMPH # 1.2 10^3/uL (1.5-5.0); LYMPH % 12.9 % (24.0-44.0); MEAN CORPUSCULAR HEMOGLOBIN 32.3 pg (27.0-33.0); MEAN CORPUSCULAR HGB CONC 31.8 g/dl (32.0-36.5); MEAN CORPUSCULAR VOLUME 101.5 fl (80.0-96.0); MONO # 0.8 10^3/uL (0.0-0.8); MONO % 8.6 % (2.0-8.0); NEUTROPHILS # 6.9 10^3/uL (1.5-8.5); NEUTROPHILS % 74.8 % (36.0-66.0); PLATELET COUNT, AUTOMATED 315 10^3/uL (150-450); RED BLOOD COUNT 3.93 10^6/uL (4.00-5.40); WHITE BLOOD COUNT 9.2 10^3/uL (4.0-10.0)
[2021-04-04] MEDS ORDERED: ISOVUE-370 76% 100ML VIAL As Ordered ONE (12:17)
[2021-04-04 12:38] LABS: ALBUMIN 3.6 GM/DL (3.2-5.2); BILIRUBIN,DIRECT 0.1 MG/DL (0.0-0.2); BILIRUBIN,TOTAL 0.4 MG/DL (0.2-1.0); TOTAL PROTEIN 6.2 GM/DL (6.4-8.2)
--- NOTE | 2021-04-04 13:08 | REP ---
INDICATION: aBDOMINAL PAIN AND RECTAL BLEEDING. COMPARISON: Comparison CT study January 15, 2021.. TECHNIQUE: Helical scanning was acquired and 4 mm axial images are re-formatted. Coronal and sagittal MPR images were generated and reviewed. The contrast enhancement dose is 100 mL of intravenous Isovue 370. FINDINGS: Preliminary digital split leather mosser radiograph is noncontributory. The lung bases are free of infiltrate. No pleural effusion is seen. There are multiple low-density liver lesions consistent with cysts again noted unchanged. 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 This is also unchanged and measures 1.2 cm in greatest diameter. This is unchanged from July 29, 2019 prior study. No adrenal lesion is seen. The kidneys enhance symmetrically. No hydronephrosis or calculus is seen. No retroperitoneal mass or adenopathy is seen. The gallbladder shows no abnormality. Small intestine is fluid-filled but no obstructive lesion is seen. There is air and fluid throughout the colon as well. Question ileus pattern. There is moderate stool in the transverse and right colon segments. No abdominal wall defect is seen. IMPRESSION: Fluid-filled loops of small intestine. Air and stool and fluid throughout large bowel question ileus. No obstructive lesion seen. Multiple hepatic cysts. No acute abnormality noted. <Electronically signed by Marek Ramirez > 04/04/21 [id number]
--- NOTE | 2021-04-04 14:48 | REP ---
INDICATION: mass on left towards hip bone. COMPARISON: Comparison is made with today's CT study as well as retrospective review of January 15, 2021 and July 29, [address] studies.. TECHNIQUE: Targeted ultrasound is performed in the area of the palpable lump along the anterior surface of the left inguinal region just below the iliac spine. FINDINGS: In the area the palpable lump, there is fusiform somewhat heterogeneous enlargement of a skeletal muscle layer is just deep to the subcutaneous fat layer and anterior to the anterior cortex of the iliac bone. On review, the CT study shows a subtle area of fibrosis or thickening of this muscle layer, likely the external oblique and internal oblique muscles. This area of thickening is visible in retrospect from the July 29, 2019 prior study and is felt to be unchanged by CT. The ill-defined area by ultrasound measures 2.5 x 1.0 by 2.0 cm. It does not have masslike features but rather heterogeneous fusiform thickening of the muscle itself. IMPRESSION: Fusiform thickening of the musculature in the left supra inguinal region just anterior to the iliac bone, likely the external and internal oblique musculature. This is nonspecific. No fluid collection is seen. It is felt to correspond with a subtle area of swelling or thickening in the muscle layer in this location on today's CT. This CT finding is visible in retrospect and is felt to be unchanged compared to the July [address] as well. Most likely benign fibrosis, perhaps post trauma.. <Electronically signed by Marek Ramirez > 04/04/21 [id number]
[2021-04-04] MEDS ORDERED: FLEET OIL RETENTION ENEMA PR PRN (14:50)
[2021-04-04] MEDS ORDERED: GOLYTELY SOLN 4000 ML BTL PO ONE (15:30)
[2021-04-04 18:29] VITALS: BP 145/69
== END 2021-04-04 18:33 | disposition home or self-care (01) ==
LOC: M ED 10:58
DX: K59.00 Constipation, unspecified (principal); K64.8 Other hemorrhoids; J44.9 Chronic obstructive pulmonary disease, unspecified; E03.9 Hypothyroidism, unspecified; E78.5 Hyperlipidemia, unspecified; I25.10 Atherosclerotic heart disease of native coronary artery without angina pectoris; Z79.899 Other long term (current) drug therapy; Z79.890 Hormone replacement therapy; Z88.1 Allergy status to other antibiotic agents; Z88.8 Allergy status to other drugs, medicaments and biological substances; Z87.891 Personal history of nicotine dependence
CPT/HCPCS: 36415; 74177; 76857; 80047; 80076; 83690; 85025; 99284; Q9967

== ENCOUNTER 2021-04-15 16:15 | Inpatient (IN) | payer MEDICARE ==
[~2021-04-15] VITALS: Ht 160 cm; Wt 47.7 kg
[2021-04-15] MEDS ORDERED: NS 1,000 ML IV ONE (17:00)
[2021-04-15] MEDS ORDERED: ONDANSETRON 4MG/2ML VIAL IV ONE (17:10)
[2021-04-15 17:39] LABS: BASO # 0.1 10^3/uL (0.0-0.2); BASO % 0.6 % (0.0-1.0); EOS # 0.1 10^3/uL (0.0-0.5); HEMATOCRIT 43.2 % (36.0-47.0); HEMOGLOBIN 13.7 g/dl (12.0-15.5); LYMPH # 1.4 10^3/uL (1.5-5.0); LYMPH % 10.1 % (24.0-44.0); MEAN CORPUSCULAR HEMOGLOBIN 31.7 pg (27.0-33.0); MEAN CORPUSCULAR HGB CONC 31.7 g/dl (32.0-36.5); MONO # 0.6 10^3/uL (0.0-0.8); MONO % 4.5 % (2.0-8.0); NEUTROPHILS # 11.3 10^3/uL (1.5-8.5); NEUTROPHILS % 83.1 % (36.0-66.0); PLATELET COUNT, AUTOMATED 529 10^3/uL (150-450); RED BLOOD COUNT 4.32 10^6/uL (4.00-5.40); WHITE BLOOD COUNT 13.7 10^3/uL (4.0-10.0)
[2021-04-15] MEDS: MORPHINE 2 MG/ML 1ML VIAL (J2270) IV PRN ×2 (17:42→18:15)
[2021-04-15] MEDS ORDERED: ISOVUE-370 76% 100ML VIAL As Ordered ONE (17:56)
[2021-04-15 18:06] LABS: ALBUMIN 3.8 GM/DL (3.2-5.2); ALT/SGPT 23 U/L (12-78); AMYLASE 63 U/L (25-115); BILIRUBIN,DIRECT < 0.1 MG/DL (0.0-0.2); BILIRUBIN,TOTAL 0.2 MG/DL (0.2-1.0); CK-MB VALUE MASS 1.3 NG/ML (<3.6); CPK CREATINE PHOSPHOKINASE 61 U/L (26-192); LIPASE 203 U/L (73-393); MB/CK RELATIVE INDEX 2.13 (< OR =4); TOTAL PROTEIN 6.8 GM/DL (6.4-8.2); TROPONIN I < 0.02 NG/ML (< 0.10)
--- NOTE | 2021-04-15 19:52 | REPVR ---
PROCEDURE INFORMATION: Exam: CT Chest With Contrast; Diagnostic Exam date and time: 04/15/2021 6:49 PM Age: 89 years old Clinical indication: Pain; Chest pressure; Additional info: Abd/back pain R/O vascular path TECHNIQUE: Imaging protocol: Diagnostic computed tomography of the chest with contrast. Radiation optimization: All CT scans at this facility use at least one of these dose optimization techniques: automated exposure control; mA and/or kV adjustment per patient size (includes targeted exams where dose is matched to clinical indication); or iterative reconstruction. Contrast material: ISOVUE 370; Contrast volume: 100 ml; Contrast route: INTRAVENOUS (IV); COMPARISON: CT ANGIO CHEST 12/15/2020 2:13 PM FINDINGS: Lungs: Severe diffuse pulmonary emphysema. Collapse of the medial segment of the right middle lobe, unchanged. 11 mm nodule within the medial right lower lobe (axial image 70 of series 201), slightly larger with mildly spiculated margins is highly suspicious. Diffuse bronchial wall thickening. Right lower lobe mucous plugging. Pleural spaces: Unremarkable. No pneumothorax. No pleural effusion. Heart: Mild cardiomegaly. Pulmonary arteries: Dilatation of the right and left main pulmonary arteries suggestive of pulmonary arterial hypertension. Aorta: Mild calcified plaque within the thoracic aorta and great vessels. No thoracic aortic aneurysm or dissection. Lymph nodes: Unremarkable. No enlarged lymph nodes. Bones/joints: Degenerative spondylosis of the cervical and thoracic spine. No acute fracture. Soft tissues: Unremarkable. IMPRESSION: 1. No acute abnormality. See above discussion for other findings. 2. 11 mm nodule within the medial right lower lobe (axial image 70 of series 201), slightly larger. Highly suspicious nodule. Consider non-emergent PET/CT, or tissue sampling.(Reference: Awa) References: Awa Clements et al. Guidelines for Management of Incidental Pulmonary Nodules Detected on CT Images: From the Fleischner Society 2017. Radiology. 2017;284(1):228-243. Electronically signed by: Toro Zarate On 04/15/2021 19:51:25 PM
[2021-04-15] MEDS ORDERED: KETOROLAC 30 MG/ML 1ML VIAL IV ONE (20:00)
[2021-04-15] MEDS ORDERED: METOCLOPRAMIDE INJ 10MG/2ML VIAL (J2765 PER 1) IV ONE (20:00)
--- NOTE | 2021-04-15 20:04 | REPVR ---
PROCEDURE INFORMATION: Exam: CT Abdomen And Pelvis With Contrast Exam date and time: 04/15/2021 6:49 PM Age: 89 years old Clinical indication: Abdominal pain; Additional info: Abd/back pain R/O vascular path TECHNIQUE: Imaging protocol: Computed tomography of the abdomen and pelvis with contrast. Radiation optimization: All CT scans at this facility use at least one of these dose optimization techniques: automated exposure control; mA and/or kV adjustment per patient size (includes targeted exams where dose is matched to clinical indication); or iterative reconstruction. Contrast material: ISOVUE 370; Contrast volume: 100 ml; Contrast route: INTRAVENOUS (IV); COMPARISON: CT ABD/PEL W/IV CONTRAST ONLY 04/04/2021 12:23 PM FINDINGS: Liver: Multiple hepatic cysts. Multiple indeterminate high density areas within the peripheral aspect of the liver. This may be the sequelae of fatty sparing in the setting of diffuse hepatic steatosis. Hyperenhancing lesions are not excluded. Consider dynamic enhanced CT or MRI as clinically warranted. Multiple hepatic cysts. Gallbladder and bile ducts: Unremarkable. No calcified stones. No ductal dilation. Pancreas: Unremarkable. No ductal dilation. Spleen: Calcified granulomas within the spleen. Small cyst within the spleen. 10 mm hyperdense/enhancing nodule within the spleen, unchanged. Adrenal glands: Normal. No mass. Kidneys and ureters: Unremarkable. No stones. No hydronephrosis. Stomach and bowel: Dilated fluid-filled loops of small bowel within the lower abdomen and pelvis. These are slightly more distended than that seen on the previous examination. The distal ileum is relatively decompressed. Findings raise the suspicion for small bowel obstruction. No obstructing mass or etiology is identified. Mild wall thickening and mucosal hyperenhancement of the gastric antrum which may be seen with gastritis. The colon is unremarkable. Appendix: No evidence of appendicitis. Intraperitoneal space: Mild mesenteric edema. Trace pelvic ascites. Vasculature: Moderate severe atherosclerosis of the abdominal aorta and branch vessels. No aneurysm. Lymph nodes: Unremarkable. No enlarged lymph nodes. Urinary bladder: Unremarkable as visualized. Reproductive: Unremarkable as visualized. Bones/joints: No acute fracture. Soft tissues: Unremarkable. IMPRESSION: 1. Findings suspicious for distal small bowel obstruction. 2. Mild mesenteric edema and trace pelvic ascites, new. 3. Hepatic and splenic cysts, unchanged. 4. High density splenic lesion, unchanged and indeterminate. 5. High attenuation areas within the peripheral aspect of the liver possibly areas of fatty sparing amidst hepatosteatosis. Consider dynamic enhanced CT scan as clinically warranted. Electronically signed by: Toro Zarate On 04/15/2021 20:03:39 PM
[2021-04-15] MEDS ORDERED: MM S100C PO (20:36)
[2021-04-15] MEDS ORDERED: LISI-898 PO (20:36)
[2021-04-15] MEDS ORDERED: MIRA3350 PO (20:36)
[2021-04-15] MEDS ORDERED: FLUT1BLS8 IH (20:36)
[2021-04-15 20:46] LABS: APPEARANCE, URINE CLEAR (CLEAR); BACTERIA, URINE AUTO 1+ (NEGATIVE); BILIRUBIN, URINE AUTO NEGATIVE (NEGATIVE); BLOOD, URINE BLOOD NEGATIVE (NEGATIVE); COLOR, URINE STRAW (YELLOW); GLUCOSE, URINE (UA) AUTO NEGATIVE (NEGATIVE); KETONE, URINE AUTO 1+ mg/dL (NEGATIVE); LEUKOCYTE ESTERASE, URINE AUTO NEGATIVE (NEGATIVE); MUCUS, URINE SMALL (NEGATIVE); NITRITE, URINE AUTO NEGATIVE (NEGATIVE); PROTEIN, URINE AUTO NEGATIVE (NEGATIVE); RBC, URINE AUTO 2 /HPF (0-3); SPECIFIC GRAVITY URINE AUTO 1.031 (1.002-1.035); SQUAMOUS EPITHELIAL CELL UR AU 0 /HPF (0-6); UROBILINOGEN, URINE AUTO 0.2 mg/dL (0.0-2.0); WBC, URINE AUTO 3 /HPF (0-3)
[2021-04-15] MEDS ORDERED: MORPHINE 4 MG/ML 1ML VIAL/SYRINGE (J2270) IV PRN (21:15)
[2021-04-15] MEDS ORDERED: MORPHINE 2 MG/ML 1ML VIAL (J2270) IV ONE (21:15)
--- NOTE | 2021-04-15 22:28 | HPEPDOC ---
[facility] Medical History & Physical Date of Admission Apr 15, 2021 Date of Service: Apr 15, 2021 History and Physical CHIEF COMPLAINT: Abdominal pain, nausea HISTORY OF PRESENT ILLNESS: Poor historian 89-year-old female with past medical history significant for COPD diastolic congestive heart failure pulmonary nodules concerning for malignancy hepatic cyst hypertension hypothyroidism appendectomy hysterectomy was in her usual state of health until a week ago when she complained of abdominal pain found to have constipation on CT of the abdomen and pelvis. Patient had worsening pain accompanied with nausea decreased flatus presents again today describing her pain as "it bothers me and it will not go away, ' despite taking Tylenol and ibuprofen at home without fever chills, usually better when she lays still on her back worse when she moves around. Patient has had decreased appetite and anorexia but no weight loss. In the ER patient was found to be septic with tachypnea respiratory rate of 22 white blood cell count of 13 0.7 and lactic acid of 2.1. CT abdomen pelvis shows distal small bowel obstruction mild mesenteric edema and trace pelvic ascites which are new hepatic and splenic cyst high density splenic lesion which is indeterminate. General surgeon Michelle has been consulted. NG tube to low intermittent suctioning n.p.o. status and IV fluids have been started. PAST MEDICAL HISTORY: 11 mm spiculated pulmonary nodule in the right lower lobe suspicious for malignancy, COPD, diastolic congestive heart failure, hypertension, hypothyroidism, hepatic steatosis with fatty liver hepatic and renal cysts PAST SURGICAL HISTORY: Appendectomy hysterectomy SOCIAL HISTORY: Full code Healthcare proxy is his son Jose Luis Ferrari [phone] Retired Previous smoker quit 17 years ago Drinks 1 to 2 glasses of wine a day FAMILY HISTORY: Noncontributory due to advanced age ALLERGIES: Please see below. REVIEW OF SYSTEMS: 10 point review of systems negative aside from positive findings in HPI HOME MEDICATIONS: Please see below. PHYSICAL EXAMINATION: VITAL SIGNS: See below GENERAL APPEARANCE: Frail appearing slightly confused awake alert oriented to herself and place only,pleasant, takes a few seconds to answer questions No cyanosis no pallor icterus HEENT: No JVD no thyromegaly no jugular venous distention dry mucous membranes CARDIOVASCULAR: S1-S2 regular rate rhythm LUNGS: Air entry is equal bilaterally clear to auscultation without wheezing or rales ABDOMEN: Slightly distended soft hypoactive bowel sounds no rebound or guarding slightly tender bilateral lower quadrants EXTREMITIES: No cyanosis clubbing or pitting edema LABORATORY DATA: See below. IMAGING: See below MICROBIOLOGY: Please see below. ASSESSMENT: 89-year-old female with past medical history significant for COPD diastolic congestive heart failure pulmonary nodules concerning for malignancy hepatic c yst hypertension hypothyroidism appendectomy hysterectomy was in her usual state of health until a week ago when she complained of abdominal pain found to have constipation on CT of the abdomen and pelvis. Patient had worsening pain accompanied with nausea decreased flatus presents again today describing her pain as "it bothers me and it will not go away, ' despite taking Tylenol and ibuprofen at home without fever chills, usually better when she lays still on her back worse when she moves around. Patient has had decreased appetite and anorexia but no weight loss. In the ER patient was found to be septic with tachypnea respiratory rate of 22 white blood cell count of 13.7 and lactic acid of 2.1. CT abdomen pelvis shows distal small bowel obstruction mild mesenteric edema and trace pelvic ascites which are new hepatic and splenic cyst high density splenic lesion which is indeterminate. General surgeon Michelle has been consulted. NG tube to low intermittent suctioning n.p.o. status and IV fluids have been started. Patient be admitted as an inpatient for the following acute issues: Distal small bowel obstruction -N.p.o. IV fluids hypoglycemic protocol General surgical consult nasogastric tube to low intermittent suction serial basic metabolic panel and magnesium Supplement electrolytes if needed As needed pain medications Monitor for fluid overload Diastolic congestive heart failure, compensated Strict I's and O's Daily weights Since the patient is n.p.o. she can be started on D5 half-normal saline at 75 mL's per hour but monitor for fluid overload COPD, compensated/emphysema CT shows right lower lobe mucous plugging and spiculated lung nodule measuring 11 mm in the medial right lower lobe slightly larger suspicious for malignancy As needed bronchodilators Supplemental oxygen if oxygen saturation is below 88% Acapella and incentive spirometry Pulmonary arterial hypertension -With dilation of the right and left main pulmonary arteries Hypertensive urgency Secondary to pain from small bowel obstruction May resume home medications with sips of water If needed patient can be given either a clonidine patch, or nitroglycerin topical ointment every 4 hourly for better blood pressure control As needed pain medications Hypothyroidism Decrease oral dose by 50% and give us an IV Synthroid Spiculated pulmonary nodule concerning for malignancy Outpatient follow-up with her primary care physician for PET scan Hepatic cysts Renal cyst Fatty liver/Daily alcohol use DT precautions check lipid profile Splenic cyst Diet: N.p.o. IV fluids DVT prophylaxis: Compression stockings CODE STATUS: Full code Healthcare proxy: Jose Luis Ferrari phone #[phone] cell phone, home [phone] Vital Signs Vital Signs Date Time Temp Pulse Resp B/P (MAP) Pulse Ox O2 Delivery O2 Flow Rate FiO2 04/15/21 18:58 98.7 67 20 146/72 (96) 99 Room Air Laboratory Data Labs 24H Laboratory Tests 2 04/15/21 17:06: Immature Granulocyte % (Auto) 0.7, Neutrophils (%) (Auto) 83.1H, Lymphocytes (%) (Auto) 10.1L, Monocytes (%) (Auto) 4.5, Eosinophils (%) (Auto) 1.0, Basophils (%) (Auto) 0.6, Neutrophils # (Auto) 11.3H, Lymphocytes # (Auto) 1.4L, Monocytes # (Auto) 0.6, Eosinophils # (Auto) 0.1, Basophils # (Auto) 0.1, Nucleated Red Blood Cells % (auto) 0.0, Urine Color STRAW, Urine Appearance CLEAR, Urine pH 7.0, Urine Specific [place] 1.031, Urine Protein NEGATIVE, Urine Glucose (Auto)(UA) NEGATIVE, Urine Ketones (Auto) 1+H, Urine Blood NEGATIVE, Urine Nitrite NEGATIVE, Urine Bilirubin NEGATIVE, Urine Urobilinogen 0.2, Urine Leukocyte Esterase (Auto) NEGATIVE, Urine WBC (Auto) 3, Urine RBC (Auto) 2, Urine Hyaline Casts (Auto) 0, Urine Bacteria (Auto) 1+H, Urine Squamous Epithelial Cells 0, Urine Mucus (Auto) SMALL, Urine Sperm (Auto) , Lactic Acid Level 2.1*H, Total Bilirubin 0.2, Direct Bilirubin < 0.1, Aspartate Amino Transf (AST/SGOT) 15, Alanine Aminotransferase (ALT/SGPT) 23, Alkaline Phosphatase 95, Total Creatine Kinase 61, Creatine Kinase MB 1.3, Creatine Kinase MB Relative Index 2.13, Troponin I < 0.02, Total Protein 6.8, Albumin 3.8, Albumin/Globulin Ratio 1.3, Amylase Level 63, Lipase 203 04/15/21 17:21: POC Glucose (Misc Panel) 163H, POC Sodium (Misc Panel) 139, POC Potassium (Misc Panel) 4.5, POC Chloride (Misc Panel) 101, POC Total CO2 (Misc Panel) 26.0, POC Blood Urea Nitrogen (Misc Panel 26, POC Ionized Calcium (Misc Panel) 4.4L, POC Creatinine (Misc Panel) 0.8, POC Hematocrit (Misc Panel) 42.0 04/15/21 21:22: Coronavirus (COVID-19)(PCR) NEGATIVE CBC/BMP Laboratory Tests 04/15/21 17:06 Home Medications Scheduled Calcium Carbonate/Vitamin D3 (Calcium 600-Vit D3 400 Tablet) 1 Each Tablet, 1 TAB PO DAILY Diphenhydramine HCl (Diphenhydramine HCl) 25 Mg Capsule, 25 MG PO QHS Docusate Sodium (Stool Softener) 100 Mg Capsule, 100 MG PO BID Fluticasone/Umeclidin/Vilanter (Trelegy Ellipta 200-62.5-25) 200-62.5 Blst.w.dev, 1 PUFF IH DAILY Levothyroxine Sodium (Synthroid) 75 Mcg Tab, 75 MCG PO DAILY Lisinopril (Lisinopril) 5 Mg Tablet, 5 MG PO BID Polyethylene Glycol 3350 (Miralax) 119 Gm Powder, 17 GM PO BID dilute in 8 ounces of water or juice Vit A/Vit C/Vit E/Zinc/Copper (Preservision Areds Softgel) 1 Each Capsule, 1 CAP PO BID Scheduled PRN Acetaminophen (Acetaminophen) 500 Mg Tablet, 1,000 MG PO Q6H PRN for PAIN Albuterol Sulf (Albuterol Sulfate) 2.5 Mg/3 Ml Nebu, 2.5 MG INH Q4H PRN for SHOR TNESS OF BREATH Albuterol Sulfate (Proair Hfa) 108 Mcg/Act Aer, 2 PUFFS INH QID PRN for SHORTNESS OF BREATH Propylene Glycol/Peg 400 (Systane 0.3-0.4% Eye Drops) 15 Ml Monik, 1 DROP OU PRN PRN for DRY EYES Allergies Coded Allergies: Aminoglycosides (Verified Allergy, Unknown, 07/10/19) bacitracin (Verified Allergy, Unknown, 07/10/19) neomycin (Verified Allergy, Unknown, 07/10/19) polymyxin B (Verified Allergy, Unknown, 07/10/19) A-FIB/CHADSVASC A-FIB History Current/History of A-Fib/PAF?: No Current PO Anticoag Therapy: No Age/Risk Factor Scoring CHADSVASC: CHADSVASC Response (Comments) Value Age Risk Factor Age >/= 75 years old 2 Gender Risk Factor Female 1 Hx of CHF No 0 Hx of HTN No 0 Hx of Stroke/TIA/or VTE No 0 Hx of Diabetes No 0 Hx of Vascular Disease No 0 Total 3 Treatment Treatment ordered: NONE ALETHEA ORTIZ MD Apr 15, 2021 22:27
[2021-04-15] MEDS: D5W/0.45% SODIUM CHLORIDE 1,000 ML IV SCH (22:29)
[2021-04-15] MEDS ORDERED: ALBUTEROL 90 MCG/ACT 8GM HFA INHALER INH PRN (22:30)
--- NOTE | 2021-04-16 00:36 | REPVR ---
PROCEDURE INFORMATION: Exam: XR Chest Exam date and time: 04/15/2021 11:10 PM Age: 89 years old Clinical indication: Device placement; Ng tube; Additional info: Ng tube placement TECHNIQUE: Imaging protocol: XR of the chest. Views: 1 view. COMPARISON: CT Chest with contrast 04/15/2021 5:55 PM FINDINGS: Tubes, catheters and devices: NG tube extending into the stomach. The side hole remains in the distal esophagus. Lungs: Pulmonary hyperinflation with relative lucency of lung. Pleural spaces: Unremarkable. No pleural effusion. No pneumothorax. Heart/Mediastinum: Borderline cardiomegaly. Bones/joints: Unremarkable. IMPRESSION: 1. NG tube extending into the stomach. The side hole remains in the distal esophagus. 2. Suggestion of some degree of COPD with borderline cardiomegaly. Electronically signed by: Isaac Evans On 04/16/2021 00:35:40 AM
[2021-04-16] MEDS: lisinopriL 5 MG TAB PO SCH ×3 (00:50→20:25)
[2021-04-16 04:45] VITALS: BP 150/72
[2021-04-16] MEDS: LEVOTHYROXINE 100MCG (0.1MG) VIAL IV SCH (05:59)
[2021-04-16 07:33] LABS: BASO # 0.1 10^3/uL (0.0-0.2); BASO % 0.5 % (0.0-1.0); EOS % 0.3 % (0.0-3.0); HEMATOCRIT 38.7 % (36.0-47.0); HEMOGLOBIN 12.2 g/dl (12.0-15.5); LYMPH # 1.5 10^3/uL (1.5-5.0); LYMPH % 12.9 % (24.0-44.0); MEAN CORPUSCULAR HEMOGLOBIN 31.8 pg (27.0-33.0); MEAN CORPUSCULAR HGB CONC 31.5 g/dl (32.0-36.5); MEAN CORPUSCULAR VOLUME 100.8 fl (80.0-96.0); MONO # 0.9 10^3/uL (0.0-0.8); MONO % 7.6 % (2.0-8.0); NEUTROPHILS # 9.2 10^3/uL (1.5-8.5); NEUTROPHILS % 78.2 % (36.0-66.0); PLATELET COUNT, AUTOMATED 436 10^3/uL (150-450); RED BLOOD COUNT 3.84 10^6/uL (4.00-5.40); WHITE BLOOD COUNT 11.7 10^3/uL (4.0-10.0)
[2021-04-16 08:10] LABS: BLOOD UREA NITROGEN 20 MG/DL (7-18); CALCIUM LEVEL 8.1 MG/DL (8.8-10.2); CARBON DIOXIDE LEVEL 30 MEQ/L (21-32); CHLORIDE LEVEL 105 MEQ/L (98-107); CHOLESTEROL LEVEL 224 MG/DL (<200); CHOLESTEROL RISK RATIO 3.111 (<5); CREATININE FOR GFR 0.67 MG/DL (0.55-1.30); GLOMERULAR FILTRATION RATE > 60.0 (>32); GLUCOSE, FASTING 108 MG/DL (70-100); HDL CHOLESTEROL 72 MG/DL (>40); LDL CHOLESTEROL 136 MG/DL (<100); NON-HDL-C 152 MG/DL; POTASSIUM SERUM 4.1 MEQ/L (3.5-5.1); SODIUM LEVEL 138 MEQ/L (136-145); TRIGLYCERIDES LEVEL 79 MG/DL (<150)
--- NOTE | 2021-04-16 08:57 | IPNPDOC ---
Text Note Date of Service The patient was seen on 04/16/21. NOTE Subjective Pt was seen at bedside today and was feeling overall well. She admits her abdominal pain has decreased since yesterday, and she currently has no nausea or feeling of constipation. Pt has not passed gas or had a bowel movement since admission. Denies PETERSON, SOB, chest pain, dysuria, hematuria, vomiting. Objective Gen: Pleasant, in no acute distress. No fever. Psych: A+Ox3 HEENT: no cervical lymphadenopathy, moist mucous membranes. NG tube in place. RESP: CTA b/l, no rhonchi, crackles, or wheeze. CVS: RRR, no murmur, gallop, rub. ABD: L-sided nonlocalized mild tenderness to deep palpation. Soft, non- distended. Normoactive bowel sounds. MSK: plantarflexion and algebraist strength 5/5 b/l. Skin: no rash, no distal ext edema. Imaging CT ABD/PEL W/IV CONTRAST ONLY (04/15) Reported as- Findings suspicious for distal small bowel obstruction. Mild mesenteric edema and trace pelvic ascites, new. Hepatic and splenic cysts, unchanged. High density splenic lesion, unchanged and indeterminate. High attenuation areas within the peripheral aspect of the liver possibly areas of fatty sparing amidst hepatosteatosis. Consider dynamic enhanced CT scan as clinically warranted. CT Chest with contrast (04/15) Reported as- No acute abnormality. 11 mm nodule within the medial right lower lobe, slightly larger. Highly suspicious nodule. Consider non-emergent PET/CT, or tissue sampling. CHEST X-RAY (04/15) Reported as- NG tube extending into the stomach. The side hole remains in the distal esophagus. Suggestion of some degree of COPD with borderline cardiomegaly. Assessment Pt is a 89yo F w PMHx of COPD, diastolic CHF, HTN, hypothyroidism, pulmonary no dules, hepatic steatosis, and hepatic and renal cysts. She presented to ED yesterday with 3 day hx of abdominal pain which became most severe yesterday night, along w constipation, and nausea. On initial evaluation she had leukocytosis and elevated lactic acid of 2.1, and CT showed evidence of distal SBO. Pt was admitted for evaluation of potential SBO, as well as symptom management. Plan 1. Distal Small Bowel Obstruction Upper GI+small bowel x-ray ordered today. Pt is NPO for gut rest. Pt is on Dextrose/NaCl at 60mls/hr. NG tube w intermittent suction in place. We will continue to monitor electrolytes and replace if needed. 2. Hypertensive Urgency 2/2 pain from SBO For severe pain, Morphine 3mg IV Q3HP PRN is ordered. Last needed dose was around 9pm last night. We are giving Lisinopril 5mg PO BID, this is the patient's home dose. 3. COPD We are giving Albuterol sulfate INH QID PRN for SOB sx. Pt should f/u outpatient w PCP concerning the pulmonary nodule suspicious for malignancy-PET scan may be indicated. Pt has been encourage to work on incentive spirometry and acapella to improve lung function and prevent any pneumonia. If sat <88% Pt will be supplemented with O2 by nasal cannula. 4. Diastolic CHF, compensated We are giving Lisinopril 5mg PO BID, this is the patient's home dose. Pt is NPO, and is currently receiving Dextrose/NaCl at 60mls/hr. We will continue to monitor Is+Os and record daily weights 5. Hypothyroidism We are giving Levothyroxine 37.5mcg IV daily, she takes this at home. 6. DVT Prophylaxis TEDs are in use. No oral/SC anticoagulant d/t potential of surgery. Disposition: Pt is being monitored for clinical improvement, and any passing gas will be noted. Surgery will be consulted for an evaluation if there is clinical deterioration including increased abdominal pain, severe distension, or rigidity. VS,Fishbone, I+O VS, Fishbone, I+O Laboratory Tests 04/15/21 17:06 04/16/21 07:23 Vital Signs Date Time Temp Pulse Resp B/P (MAP) Pulse Ox O2 Delivery O2 Flow Rate FiO2 04/16/21 08:14 149/73 04/16/21 04:49 2.0 04/16/21 04:45 97.9 77 19 97 Nasal Cannula I&O- Last 24 Hours up to 6 AM 04/16/21 06:00 Intake Total 300 ml Output Total 0 ml Balance 300 ml GME ATTESTATION ATTENDING NOTE I, Danny Hoyos DO, have independently examined this patient and performed my own physical exam, as well as reviewed the documentation and edited where necessary. I have discussed in detail with the resident / student the findings and plan of treatment as documented by the resident / student and edited their note. I agree with their findings and treatment plan and have edited their documentation. I will continue to follow the patient during this hospital stay. PA FRANKLIN OMS-3 Apr 16, 2021 08:57 DANNY HOYOS DO Apr 16, 2021 18:24
[2021-04-16 09:00] VITALS: BP 149/73
[2021-04-16] MEDS ORDERED: E-Z-PAQUE 96% w/w SUSP 176GM BTL As Ordered ONE (09:45)
[2021-04-16 14:00] VITALS: BP 151/74
[2021-04-16] MEDS ORDERED: ONDANSETRON 4 MG TAB PO PRN (14:00)
--- NOTE | 2021-04-16 14:13 | CR.PDOC ---
General Date of Consultation: Apr 16, [address] Dr. Martinez HISTORY OF PRESENT ILLNESS: The patient is an 89-year-old female who is a somewhat vague historian. History is taken from the chart and Dr. Martinez spoke with the patient's son. The patient lives with her son. She was seen in the emergency department 04/04/2021 reporting abdominal pain and bloating felt related to constipation and was discharged with MiraLAX twice daily and Colace daily. The patient's son states this seemed to help. According to the patient's son, the patient reported recurrent abdominal pain yesterday. She had 2 episodes of vomiting last evening. According to the patient's son she has been eating at home. This morning, the patient states she has "a little abdominal pain". She has not had any further vomiting. No bowel movement since admission. The patient's son is not sure if she has had a previous colonoscopy, no record of colonoscopy in our system. In the emergency department the patient was noted to be septic with tachypnea, respiratory rate 22, WBC 13.7, lactic acid 2.1. CT abdomen pelvis indicated distal small bowel obstruction mild mesenteric edema and trace pelvic ascites, hepatic and splenic cyst, high density splenic lesion. General surgery was consulted. ALLERGIES: Please see below. HOME MEDICATIONS: Please see below. PAST MEDICAL HISTORY: COPD/emphysema, chronic O2. 11 mm spiculated pulmonary nodule in the right lower lobe suspicious for malignancy Diastolic CHF Hypertension Hypothyroid Hepatic steatosis with fatty liver hepatic and renal cysts PAST SURGICAL HISTORY: Appendectomy Hysterectomy SOCIAL HISTORY: Former smoker Lives with her son. States she completes activities of daily living on her own, ambulates around the house, states she does not go out of the house very much. States she is able to climb the stairs in her home. REVIEW OF SYSTEMS: As noted in HPI otherwise 10 point review of systems unremarkable. PHYSICAL EXAMINATION: VITAL SIGNS: Please see below. GENERAL APPEARANCE: No acute distress, resting in bed HEENT: NG tube in place RESPIRATORY: Clear to auscultation, no wheezing. CARDIOVASCULAR: S1-S2 regular rate rhythm. ABDOMEN: Midline surgical scar, right abdomen surgical scar. Soft, nontender with no guarding or rebound. EXTREMITIES: No edema Labs this morning indicate WBC 11.7, compared with 13.7 yesterday on admission. Hemoglobin 12.2, platelets 436. Lactic acid this morning 0.8. ASSESSMENT/PLAN: SBO. The patient is reviewed and examined as per Dr. Martinez this morning. NPO IVF NGT to LIS For further evaluation, have requested upper GI with small bowel follow-through. Further recommendations pending review of imaging as per Dr. Martinez. Vital Signs/I&O Vital Signs Date Time Temp Pulse Resp B/P (MAP) Pulse Ox O2 Delivery O2 Flow Rate FiO2 04/16/21 09:00 149/73 (98) 04/16/21 09:00 2.0 04/16/21 04:45 97.9 77 19 97 Nasal Cannula I&O- Last 24 Hours up to 6 AM 04/16/21 06:00 Intake Total 300 ml Output Total 0 ml Balance 300 ml Laboratory Data Labs 24H Laboratory Tests 2 04/15/21 17:06: Immature Granulocyte % (Auto) 0.7, Neutrophils (%) (Auto) 83.1H, Lymphocytes (%) (Auto) 10.1L, Monocytes (%) (Auto) 4.5, Eosinophils (%) (Auto) 1.0, Basophils (%) (Auto) 0.6, Neutrophils # (Auto) 11.3H, Lymphocytes # (Auto) 1.4L, Monocytes # (Auto) 0.6, Eosinophils # (Auto) 0.1, Basophils # (Auto) 0.1, Nucleated Red Blood Cells % (auto) 0.0, Urine Color STRAW, Urine Appearance CLEAR, Urine pH 7.0, Urine Specific [place] 1.031, Urine Protein NEGATIVE, Urine Glucose (Auto )(UA) NEGATIVE, Urine Ketones (Auto) 1+H, Urine Blood NEGATIVE, Urine Nitrite NEGATIVE, Urine Bilirubin NEGATIVE, Urine Urobilinogen 0.2, Urine Leukocyte Esterase (Auto) NEGATIVE, Urine WBC (Auto) 3, Urine RBC (Auto) 2, Urine Hyaline Casts (Auto) 0, Urine Bacteria (Auto) 1+H, Urine Squamous Epithelial Cells 0, Urine Mucus (Auto) SMALL, Urine Sperm (Auto) , Lactic Acid Level 2.1*H, Total Bilirubin 0.2, Direct Bilirubin < 0.1, Aspartate Amino Transf (AST/SGOT) 15, Alanine Aminotransferase (ALT/SGPT) 23, Alkaline Phosphatase 95, Total Creatine Kinase 61, Creatine Kinase MB 1.3, Creatine Kinase MB Relative Index 2.13, Troponin I < 0.02, Total Protein 6.8, Albumin 3.8, Albumin/Globulin Ratio 1.3, Amylase Level 63, Lipase 203 04/15/21 17:21: POC Glucose (Misc Panel) 163H, POC Sodium (Misc Panel) 139, POC Potassium (Misc Panel) 4.5, POC Chloride (Misc Panel) 101, POC Total CO2 (Misc Panel) 26.0, POC Blood Urea Nitrogen (Misc Panel 26, POC Ionized Calcium (Misc Panel) 4.4L, POC Creatinine (Misc Panel) 0.8, POC Hematocrit (Misc Panel) 42.0 04/15/21 21:22: Coronavirus (COVID-19)(PCR) NEGATIVE 04/15/21 22:08: Lactic Acid Followup at 4 Hours 1.9 04/16/21 07:23: Immature Granulocyte % (Auto) 0.5, Neutrophils (%) (Auto) 78.2H, Lymphocytes (%) (Auto) 12.9L, Monocytes (%) (Auto) 7.6, Eosinophils (%) (Auto) 0.3, Basophils (%) (Auto) 0.5, Neutrophils # (Auto) 9.2H, Lymphocytes # (Auto) 1.5, Monocytes # (Auto) 0.9H, Eosinophils # (Auto) 0.0, Basophils # (Auto) 0.1, Nucleated Red Blood Cells % (auto) 0.0, Anion Gap 3L, Glomerular Filtration Rate > 60.0, Lactic Acid Level 0.8, Calcium Level 8.1L, Triglycerides Level 79, Total Cholesterol 224H, LDL Cholesterol 136H, Non-HDL Cholesterol (LDL + VLDL) 152, Total HDL Cholesterol 72, Cholesterol/HDL Ratio 3.111, Thyroid Stimulating Hormone (TSH) 3.110 04/16/21 12:09: Lab Scanned Report Miscellaneous Lab CBC/BMP Laboratory Tests 04/15/21 17:06 04/16/21 07:23 Allergies Coded Allergies: Aminoglycosides (Verified Allergy, Unknown, 07/10/19) bacitracin (Verified Allergy, Unknown, 07/10/19) neomycin (Verified Allergy, Unknown, 07/10/19) polymyxin B (Verified Allergy, Unknown, 07/10/19) Home Medications Scheduled Calcium Carbonate/Vitamin D3 (Calcium 600-Vit D3 400 Tablet) 1 Each Tablet, 1 TAB PO DAILY, (Reported) Diphenhydramine HCl (Diphenhydramine HCl) 25 Mg Capsule, 25 MG PO QHS, (Reported) Docusate Sodium (Stool Softener) 100 Mg Capsule, 100 MG PO BID, (Reported) Fluticasone/Umeclidin/Vilanter (Trelegy Ellipta 200-62.5-25) 200-62.5 Blst.w.dev, 1 PUFF IH DAILY, (Reported) Levothyroxine Sodium (Synthroid) 75 Mcg Tab, 75 MCG PO DAILY, (Reported) Lisinopril (Lisinopril) 5 Mg Tablet, 5 MG PO BID, (Reported) Polyethylene Glycol 3350 (Miralax) 119 Gm Powder, 17 GM PO BID, (Reported) dilute in 8 ounces of water or juice Vit A/Vit C/Vit E/Zinc/Copper (Preservision Areds Softgel) 1 Each Capsule, 1 CAP PO BID, (Reported) Scheduled PRN Acetaminophen (Acetaminophen) 500 Mg Tablet, 1,000 MG PO Q6H PRN for PAIN, (Reported) Albuterol Sulf (Albuterol Sulfate) 2.5 Mg/3 Ml Nebu, 2.5 MG INH Q4H PRN for SHORTNESS OF BREATH, (Reported) Albuterol Sulfate (Proair Hfa) 108 Mcg/Act Aer, 2 PUFFS INH QID PRN for SHORTNESS OF BREATH, (Reported) Propylene Glycol/Peg 400 (Systane 0.3-0.4% Eye Drops) 15 Ml Monik, 1 DROP OU PRN PRN for DRY EYES, (Reported) Zohra Pineda Apr 16, 2021 14:13
[2021-04-16] MEDS: D5W/0.45% SODIUM CHLORIDE 1,000 ML IV SCH (14:26)
[2021-04-16] MEDS: ONDANSETRON 4MG/2ML VIAL IV PRN (14:26)
--- NOTE | 2021-04-16 20:30 | ECGEPIP ---
[facility] - ED Test Date: 2021-04-15 Pat Name: DANIELE HASTINGS Department: Room: [place] [address] Gender: Female Collision Repair Technician: : [id number] Requested By: SERGO CHENG PA-C. Order Number: [id number] Reading MD: Kym Barahona Measurements Intervals Camilla Rate: 51 P: 36 WY: 148 QRS: 56 QRSD: 72 T: 59 QT: 466 QTc: 429 Interpretive Statements Sinus bradycardia with premature atrial complexes decreased rate 12/15/20 Electronically Signed on 04-16-2021 20:30:15 EDT by Kym Barahona
[2021-04-16 22:00] VITALS: BP 162/70
[2021-04-17] MEDS: D5W/0.45% SODIUM CHLORIDE 1,000 ML IV SCH ×2 (05:45→22:07)
[2021-04-17 06:01] LABS: BASO # 0.1 10^3/uL (0.0-0.2); BASO % 0.4 % (0.0-1.0); EOS % 0.1 % (0.0-3.0); HEMATOCRIT 40.9 % (36.0-47.0); LYMPH % 7.2 % (24.0-44.0); MEAN CORPUSCULAR HEMOGLOBIN 31.9 pg (27.0-33.0); MEAN CORPUSCULAR HGB CONC 31.8 g/dl (32.0-36.5); MEAN CORPUSCULAR VOLUME 100.2 fl (80.0-96.0); MONO % 7.4 % (2.0-8.0); NEUTROPHILS # 11.9 10^3/uL (1.5-8.5); NEUTROPHILS % 84.3 % (36.0-66.0); PLATELET COUNT, AUTOMATED 469 10^3/uL (150-450); RED BLOOD COUNT 4.08 10^6/uL (4.00-5.40); WHITE BLOOD COUNT 14.1 10^3/uL (4.0-10.0)
[2021-04-17 06:15] VITALS: BP 117/63
[2021-04-17] MEDS: LEVOTHYROXINE 100MCG (0.1MG) VIAL IV SCH (06:18)
[2021-04-17 06:28] LABS: BLOOD UREA NITROGEN 14 MG/DL (7-18); CALCIUM LEVEL 8.3 MG/DL (8.8-10.2); CARBON DIOXIDE LEVEL 32 MEQ/L (21-32); CHLORIDE LEVEL 105 MEQ/L (98-107); CREATININE FOR GFR 0.53 MG/DL (0.55-1.30); GLOMERULAR FILTRATION RATE > 60.0 (>32); GLUCOSE, FASTING 112 MG/DL (70-100); POTASSIUM SERUM 4.1 MEQ/L (3.5-5.1); SODIUM LEVEL 141 MEQ/L (136-145)
[2021-04-17] MEDS: ONDANSETRON 4MG/2ML VIAL IV PRN (07:50)
[2021-04-17] MEDS: lisinopriL 5 MG TAB PO SCH ×2 (07:52→19:52)
[2021-04-17] MEDS ORDERED: MOM 30ML SUSPENSION UDC PO ONE (08:25)
--- NOTE | 2021-04-17 09:02 | IPNPDOC ---
Text Note Date of Service The patient was seen on 04/17/21. NOTE General surgery. Dr. Martinez The patient is an 89-year-old female admitted with SBO. NG tube is in place. The patient went down for imaging this morning and states with movement she noticed some abdominal discomfort. Currently she is resting in bed and states she is not having any pain. She denies nausea. She denies flatus or bowel movement. Afebrile. Heart rate 75, respiratory rate 17, blood pressure 117/63, 92% 2 L nasal cannula Resting in bed, appears in no acute distress NGT in place. Abdomen soft, mildly distended, but nontender on exam with no guarding or rebound. Extremities with no edema. WBC 14.1, compared with 11.7 yesterday. Hemoglobin 13.0, platelets 469. NG tube output 375ml documented since admission Assessment/plan SBO The patient is reviewed and examined as per Dr. Martinez this morning. UGI SBFT imaging reviewed as per Dr. Martinez, report pending. AXR this a.m. is pending. Continue n.p.o. Continue NG tube IVF MOM x 1 this AM Await AXR imaging review as per Dr Martinez for further recommendations. VS,Fishbone, I+O VS, Fishbone, I+O Laboratory Tests 04/17/21 05:30 Vital Signs Date Time Temp Pulse Resp B/P (MAP) Pulse Ox O2 Delivery O2 Flow Rate FiO2 04/17/21 07:52 106/50 04/17/21 06:15 97.3 75 7 92 Nasal Cannula 2.0 I&O- Last 24 Hours up to 6 AM0 04/17/21 05:59 Intake Total 0 ml Balance 0 ml Zohra Pineda Apr 17, 2021 09:02
--- NOTE | 2021-04-17 11:15 | IPNPDOC ---
Text Note Date of Service The patient was seen on 04/17/21. NOTE Subjective Pt was seen at bedside this morning and admits she feels best when laying down. She had nausea and vomited once early this morning. After getting up for X-ray this morning she states lower abdominal pain began, which was relieved by laying down. Denies PETERSON, chest pain, SOB, dysuria, hematuria. Objective Gen: Pt is pleasant and comfortable while lying down. Psych: A+Ox3 HEENT: No cervical lymphadenopathy and NG tube is in place. RESP: CTA b/l, no rhonchi, crackles, or wheeze. CVS: RRR, no murmur. ABD Soft, ND, normoactive sounds. Mild tenderness to palpation diffusely over right quadrants. MSK: plantarflexion strength 5/5 b/l. Skin: normal temp, no swelling. Imaging CT ABD/PEL W/IV CONTRAST ONLY (04/15) Reported as- Findings suspicious for distal small bowel obstruction. Mild mesenteric edema and trace pelvic ascites, new. Hepatic and splenic cysts, unchanged. High density splenic lesion, unchanged and indeterminate. High attenuation areas within the peripheral aspect of the liver possibly areas of fatty sparing amidst hepatosteatosis. Consider dynamic enhanced CT scan as clinically warranted. CT Chest with contrast (04/15) Reported as- No acute abnormality. 11 mm nodule within the medial right lower lobe, slightly larger. Highly suspicious nodule. Consider non-emergent PET/CT, or tissue sampling. CHEST X-RAY (04/15) Reported as- NG tube extending into the stomach. The side hole remains in the distal esophagus. Suggestion of some degree of COPD with borderline cardiomegaly. Upper G.I. with small bowel (04/16) Reported as- Serial images were performed. At the 6 hour uday there is contrast seen entering into dilated distal small bowel loops. Image obtained at the 22 hour uday demonstrates contrast to be within the colon. There is contrast seen in dilated distal small bowel loops. This suggest a partial small bowel obstruction. There is no etiology identified. PORTABLE ABDOMEN (KUB) (04/17) Reported as- Administered barium is seen in the colon. Assessment Pt is a 89yo F w PMHx of COPD, diastolic CHF, HTN, hypothyroidism, pulmonary nodules, hepatic steatosis, and hepatic and renal cysts. She presented to ED yesterday with 3 day hx of abdominal pain which became most severe yesterday night, along w constipation, and nausea. On initial evaluation she had leukocytosis and elevated lactic acid level, and CT showed evidence of distal SBO. Pt was admitted for evaluation of potential SBO, as well as symptom management. Plan 1. Distal Small Bowel Obstruction Imaging done today suggested SBO remains. Pt is NPO and getting Dextrose/NaCl at 60mls/hr. NG tube collected 375ml. Pt pulled tube out in afternoon, and tube was replaced and imaging confirmed proper placement. Surgery evaluation in ongoing-they have ordered laxatives. 2. Hypertensive Urgency 2/2 pain from SBO Systolic BP was in 160s last night, has been controlled today. We will continue with Morphine IV as needed for moderate to severe pain. Last needed dose was midnight. We will continue home dose of Lisinopril 5mg PO BID. 3. Nausea/Vomiting We will continue ondansetron as needed for nausea relief. Last needed dose was yesterday. 4. COPD Pt was sating 92% on room air this morning, 2L O2 ordered but not in use. We will continue Albuterol INH as needed for SOB. Pt should f/u outpatient w PCP concerning the pulmonary nodule questionable for malignancy. 5. Diastolic CHF, compensated We will continue home dose of Lisinopril 5mg PO BID. 6. Hypothyroidism We will continue with home dose of Levothyroxine 37.5mcg IV daily. 7. DVT Prophylaxis We are using TEDs and sequentials, with no anticoagulant d/t ongoing surgery eval. Disposition: Surgery evaluation is ongoing to determine if SBO resolves or procedural intervention is indicated, pt will stay at least one more night for evaluation. VS,Fishbone, I+O VS, Fishbone, I+O Laboratory Tests 04/17/21 05:30 Vital Signs Date Time Temp Pulse Resp B/P (MAP) Pulse Ox O2 Delivery O2 Flow Rate FiO2 04/17/21 07:52 106/50 04/17/21 06:15 97.3 75 7 92 Nasal Cannula 2.0 I&O- Last 24 Hours up to 6 AM 04/17/21 06:00 Intake Total 720 ml Balance 720 ml GME ATTESTATION GME ATTESTATION My faculty preceptor for this patient encounter was physically present during the encounter and was fully available. All aspects of the patient interview, examination, medical decision making process, and medical care plan development were reviewed and approved by the faculty preceptor. The faculty preceptor is aware and concurs with the plan as stated in the body of this note and will attest to such by his/her cosignature. ATTENDING NOTE I, Windy Patel, have independently examined this patient and performed my own physical exam, as well as reviewed the documentation and edited where necessary. I have discussed in detail with the resident / student the findings and plan of treatment as documented by the resident / student and edited their note. I agree with their findings and treatment plan and have edited their documentation. I will continue to follow the patient during this hospital stay. PA FRANKLIN OMS-3 Apr 17, 2021 11:15 WINDY PATEL MD Apr 17, 2021 16:52 ADÁN GRIFFITH D.O. Apr 17, 2021 18:03
--- NOTE | 2021-04-17 11:39 | REP ---
INDICATION: SBO. COMPARISON: None. TECHNIQUE: The procedure was performed under the direct supervision of . The images were reviewed with Dr. Ramirez. Liquid barium was administered in the prone oblique position in order to perform a single contrast upper GI examination. Additionally liquid barium was given at the end of the examination in order to perform a small bowel follow through. A combination od fluoroscopy, spot films and last image hold technology was utilized, 0.7 minutes of fluoro time was utilized for this procedure. FINDINGS: The drug abuse resistance education officer film shows no organomegaly or pathological masses. There is an NG tube in place. There are dilated small bowel loops identified. There is contrast in the bladder from the previous CT exam. There are vascular calcifications identified. The oral and pharyngeal stages of deglutition are unremarkable. Esophageal transport is prompt and efficient and there is no esophagitis, stricture, mucosal ring or hiatal hernia. Gastroesophageal reflux is not demonstrated on this examination. The stomach is grossly normal. Rugal folds are smooth and regular. There is no evidence of gastritis neoplasm or ulcer disease. The duodenum is grossly normal. There is no evidence of duodenitis pancreatitis or peptic ulcer disease. The visualized portion of the proximal small bowel appears normal in course and caliber. The barium column was followed through the small bowel to the level of the terminal ileum. Serial images were performed. At the 6 hour uday there is contrast seen entering into dilated distal small bowel loops. And images obtained at the 22 hour uday demonstrates contrast to be within the colon. There is contrast seen in dilated distal small bowel loops. This suggest a partial small bowel obstruction. There is no etiology identified. IMPRESSION: Serial images were performed. At the 6 hour uday there is contrast seen entering into dilated distal small bowel loops. Image obtained at the 22 hour uday demonstrates contrast to be within the colon. There is contrast seen in dilated distal small bowel loops. This suggest a partial small bowel obstruction. There is no etiology identified. <Electronically signed by Javi Ramírez > 04/17/21 0906 <Electronically signed by Marek Ramirez > 04/17/21 [id number]
--- NOTE | 2021-04-17 12:43 | REP ---
INDICATION: NG tube placement. COMPARISON: Comparison study April 16, 2021.. TECHNIQUE: KUB: Obtained portably. FINDINGS: A nasogastric tube is seen in place. There is contrast did distributed throughout the proximal colon to the distal descending segment. There is a small quantity of residual contrast in the small small bowel. The small bowel dilation pattern is slightly improved but not resolved. IMPRESSION: Administered barium is seen in the colon. <Electronically signed by Marek Ramirez > 04/17/21 1250
[2021-04-17] MEDS ORDERED: FLEET ENEMA PR ONE (12:50)
[2021-04-17 14:00] VITALS: BP 120/58
[2021-04-17 22:00] VITALS: BP 127/51
[2021-04-18 06:00] VITALS: BP 125/53
[2021-04-18 06:26] LABS: BASO % 0.5 % (0.0-1.0); EOS # 0.1 10^3/uL (0.0-0.5); EOS % 1.3 % (0.0-3.0); HEMATOCRIT 34.5 % (36.0-47.0); LYMPH # 1.4 10^3/uL (1.5-5.0); LYMPH % 16.9 % (24.0-44.0); MEAN CORPUSCULAR HEMOGLOBIN 32.3 pg (27.0-33.0); MEAN CORPUSCULAR HGB CONC 31.9 g/dl (32.0-36.5); MEAN CORPUSCULAR VOLUME 101.2 fl (80.0-96.0); MONO # 0.9 10^3/uL (0.0-0.8); MONO % 10.4 % (2.0-8.0); NEUTROPHILS # 5.7 10^3/uL (1.5-8.5); NEUTROPHILS % 70.4 % (36.0-66.0); PLATELET COUNT, AUTOMATED 382 10^3/uL (150-450); RED BLOOD COUNT 3.41 10^6/uL (4.00-5.40); WHITE BLOOD COUNT 8.2 10^3/uL (4.0-10.0)
[2021-04-18 06:41] LABS: BLOOD UREA NITROGEN 9 MG/DL (7-18); CALCIUM LEVEL 7.9 MG/DL (8.8-10.2); CARBON DIOXIDE LEVEL 34 MEQ/L (21-32); CHLORIDE LEVEL 106 MEQ/L (98-107); CREATININE FOR GFR 0.48 MG/DL (0.55-1.30); GLOMERULAR FILTRATION RATE > 60.0 (>32); GLUCOSE, FASTING 93 MG/DL (70-100); POTASSIUM SERUM 3.7 MEQ/L (3.5-5.1); SODIUM LEVEL 142 MEQ/L (136-145)
[2021-04-18] MEDS: LEVOTHYROXINE 100MCG (0.1MG) VIAL IV SCH (06:44)
[2021-04-18] MEDS: lisinopriL 5 MG TAB PO SCH ×2 (09:21→20:44)
[2021-04-18] MEDS: GASTROGRAFIN SOLUTION 30ML PO SCH ×2 (09:40→10:03)
[2021-04-18] MEDS ORDERED: ISOVUE-370 76% 100ML VIAL As Ordered ONE (09:45)
--- NOTE | 2021-04-18 10:53 | IPNPDOC ---
Text Note Date of Service The patient was seen on 04/18/21. NOTE General surgery. Dr. Martinez The patient is an 89-year-old female admitted with SBO. She states she is still having abdominal pain. She had one bowel movement yesterday, therefore bowel movements documented today but despite this she does not report improvement in her pain. Denies nausea or vomiting. Tolerating clear liquids Afebrile. VSS Resting in bed, appears in no acute distress Abdomen soft, still mildly distended, right upper and left upper abdominal tenderness with palpation. Extremities with no edema. WBC 8.2, hemoglobin 11.0 CT A/P 04/15 MPRESSION: 1. Findings suspicious for distal small bowel obstruction. 2. Mild mesenteric edema and trace pelvic ascites, new. 3. Hepatic and splenic cysts, unchanged. 4. High density splenic lesion, unchanged and indeterminate. 5. High attenuation areas within the peripheral aspect of the liver possibly areas of fatty sparing amidst hepatosteatosis. Consider dynamic enhanced CT scan as clinically warranted. Electronically signed by: Toro Zarate On 04/15/2021 20:03:39 PM UGI SBFT IMPRESSION: Serial images were performed. At the 6 hour uday there is contrast seen entering into dilated distal small bowel loops. Image obtained at the 22 hour uday demonstrates contrast to be within the colon. There is contrast seen in dilated distal small bowel loops. This suggest a partial small bowel obstruction. There is no etiology identified. <Electronically signed by Javi Ramírez > 04/17/21 0906 AXR FINDINGS: A nasogastric tube is seen in place. There is contrast did distributed throughout the proximal colon to the distal descending segment. There is a small quantity of residual contrast in the small small bowel. The small bowel dilation pattern is slightly improved but not resolved. IMPRESSION: Administered barium is seen in the colon. <Electronically signed by Marek Ramirez > 04/17/21 1239 Assessment/plan SBO The patient is reviewed and examined as per Dr. Martinez this morning. Patient is tolerating clear liquids and has had bowel movement but reports persistent abdominal pain. Will request CT scan abdomen/pelvis with p.o. and IV contrast to further evaluate. Further recommendations as per Dr. Martinez pending further review of imaging. VS,Fishbone, I+O VS, Fishbone, I+O Laboratory Tests 04/18/21 05:39 Vital Signs Date Time Temp Pulse Resp B/P (MAP) Pulse Ox O2 Delivery O2 Flow Rate FiO2 04/18/21 09:21 144/61 04/18/21 06:00 99.4 65 19 90 Room Air 04/17/21 06:15 2.0 I&O- Last 24 Hours up to 6 AM 04/18/21 06:00 Intake Total 870 ml Output Total 500 ml Balance 370 ml Zohra Pineda Apr 18, 2021 10:53
--- NOTE | 2021-04-18 13:14 | REP ---
INDICATION: SBO. COMPARISON: CT 04/15/2021, 04/04/2021; KUB 04/17/2021, upper GI with SBFT 04/16/2021. TECHNIQUE: Bolus 100 mL of Isovue 370 scanning through the abdomen and pelvis with coronal and sagittal reconstructions provided. FINDINGS: CT abdomen: Lung bases show small bilateral pleural effusions. Underlying COPD, cylindrical bronchiectatic change and a as subpleural of parenchymal nodule on image 1 not present on either the prior studies likely an inflammatory nodule. The heart is mildly prominent with the left atrial enlargement but no pericardial thickening or effusion there is a small hiatal hernia evident. The liver shows multiple hepatic cysts with the largest inferiorly in the right lobe about 3 cm. These are unchanged. There is no biliary dilatation. There is a small amount of ascites in the upper abdomen. Spleen is not enlarged. Splenic cyst and hemangioma, these are unchanged from multiple prior studies. Gallbladder shows no calcified stone. There is layered sludge seen within it. Pancreas grossly intact. The stomach collapsed without mass. Oral contrast from recent upper GI and small-bowel series 3 days ago seen filling mildly distended small bowel loops and proximal to mid jejunum. Some contrast has passed into the colon and reaches the rectosigmoid. The mid small bowel loops are air-filled and some of the distal loops of ileum are not opacified and may have somewhat thickened hull. Mesenteric edema or infiltration of the fat is noted. There is fluid in the pelvis representing [id number] ascites. I do not see a specific transition zone or mass on these images. Lung windows show no perforation or free air. Kidneys show symmetric enhancement with extrarenal pelvis. No stone, hydronephrosis, gross hydroureter or ureteral stone. Bladder without calcified stone or mass. Diverticulosis distal left colon without diverticulitis or colitis anywhere in the colon. The bone windows are unchanged showing degenerative changes in spine, pelvis and hip that are stable. IMPRESSION: 1. There is an ileus or partial small bowel obstruction with contrast in many of the proximal small bowel loops which are mildly distended and with distal ileum and terminal ileum without contrast. There may be some bowel wall thickening there but it is difficult to discern. No demonstration of a definite transition zone or mass causing partial obstruction. I do not see perforation or free air, abscess or mass. Oral contrast extends from the right colon through the rectosigmoid. There is mild to moderate ascites in the pelvis, mild in the abdomen. 2. Extrarenal pelves without hydronephrosis, renal or ureteral stone or mass. Bladder unremarkable. 3. Multiple renal cysts. Spleen with the cyst and hemangioma. Small hiatal hernia. Extensive atherosclerotic calcification without aneurysm. <Electronically signed by Adelso Pierson > 04/18/21 0716
[2021-04-18 14:00] VITALS: BP 142/62
--- NOTE | 2021-04-18 16:45 | IPNPDOC ---
Text Note Date of Service The patient was seen on 04/18/21. NOTE Subjective Pt was seen at bedside today and c/o lower abdominal pain, which was partially relieved by having 2 bowel movements since last night. She has not gotten down much of her clear liquids d/t fear that abdominal pain will worsen. Pt says overall she feels better than yesterday. Denies nausea, vomiting, PETERSON, chest pain, SOB, dysuria, blood in stool. Objective Gen: Pt is talkative and in no acute distress. Psych: A+Ox3 HEENT: Oral cavity mildly dry. No cervical lymphadenopathy. RESP: CTA b/l, no rhonchi, crackles, or wheeze. CVS: RRR, no murmur, rubs, or gallops. ABD Tenderness to deep palpation diffusely over lower quadrants. Non-distended, normoactive bowel sounds. MSK: plantarflexion strength 5/5 b/l. Skin: No rash, no edema. Imaging CT ABD/PEL W/IV CONTRAST ONLY (04/15) Reported as- Findings suspicious for distal small bowel obstruction. Mild mesenteric edema and trace pelvic ascites, new. Hepatic and splenic cysts, unchanged. High density splenic lesion, unchanged and indeterminate. High attenuation areas within the peripheral aspect of the liver possibly areas of fatty sparing amidst hepatosteatosis. Consider dynamic enhanced CT scan as clinically warranted. CT Chest with contrast (04/15) Reported as- No acute abnormality. 11 mm nodule within the medial right lower lobe, slightly larger. Highly suspicious nodule. Consider non-emergent PET/CT, or tissue sampling. CHEST X-RAY (04/15) Reported as- NG tube extending into the stomach. The side hole remains in the distal esophagus. Suggestion of some degree of COPD with borderline cardiomegaly. Upper G.I. with small bowel (04/16) Reported as- Serial images were performed. At the 6 hour uday there is contrast seen entering into dilated distal small bowel loops. Image obtained at the 22 hour uday demonstrates contrast to be within the colon. There is contrast seen in dilated distal small bowel loops. This suggest a partial small bowel obstruction. There is no etiology identified. PORTABLE ABDOMEN (KUB) (04/17) Reported as- Administered barium is seen in the colon. CT ABD/PEL W/IV & ORAL CONTRAST (04/18) Reported as- There is an ileus or partial small bowel obstruction with contrast in many of the proximal small bowel loops which are mildly distended and with distal ileum and terminal ileum without contrast. There may be some bowel wall thickening there but it is difficult to discern. No demonstration of a definite transition zone or mass causing partial obstruction. No perforation or free air, abscess or mass. Oral contrast extends from the right colon through the recto-sigmoid. There is mild to moderate ascites in the pelvis, mild in the abdomen. Assessment Pt is a 89yo F w PMHx of COPD, diastolic CHF, HTN, hypothyroidism, pulmonary nodules, hepatic steatosis, and hepatic and renal cysts. She presented to ED yesterday with 3 day hx of abdominal pain which became most severe yesterday night, along w constipation, and nausea. On initial evaluation she had leukocytosis and elevated lactic acid level, and CT showed evidence of distal SB O. Pt was admitted for evaluation of potential SBO, as well as symptom management. Plan 1. Distal Small Bowel Obstruction vs. Ileus CT abdomen today showed continued presence of partial SBO vs. ileus Pt has been placed on a clear liquids diet, and NG tube has been removed. Patient has not been nauseous or required ondansetron in over 24hrs. Surgery will review imaging and continue their assessment. 2. Pain secondary to SBO Pt has decreased pain and has not required Morphine in over 24hrs. 3. Drop in Hgb Patient had 2 point drop (13 to 11) in Hgb in 24hrs. Other cell lineages are down, so likely related to volume change related. Leukocytosis has also resolved, WBC are WNL. No signs of bleeding or blood in stool. 4. COPD Pt was sating well on room air this morning. Pt has not required Albuterol, or had SOB. Pt should f/u outpatient w PCP concerning the pulmonary nodule questionable for malignancy. 5. Diastolic CHF, compensated We will continue home dose of Lisinopril 5mg PO BID. 6. Hypothyroidism We will continue with home dose of Levothyroxine 37.5mcg IV daily. 7. DVT Prophylaxis TEDs and sequentials no anticoagulant d/t potential of surgery. Disposition: Surgery evaluation is pending, based on today's imaging. Pt will continue to be monitored in hospital. VS,Fishbone, I+O VS, Fishbone, I+O Laboratory Tests 04/18/21 05:39 Vital Signs Date Time Temp Pulse Resp B/P (MAP) Pulse Ox O2 Delivery O2 Flow Rate FiO2 04/18/21 14:00 97.6 78 16 142/62 (88) 98 Room Air 04/17/21 06:15 2.0 I&O- Last 24 Hours up to 6 AM 04/18/21 06:00 Intake Total 870 ml Output Total 500 ml Balance 370 ml GME ATTESTATION GME ATTESTATION My faculty preceptor for this patient encounter was physically present during the encounter and was fully available. All aspects of the patient interview, examination, medical decision making process, and medical care plan development were reviewed and approved by the faculty preceptor. The faculty preceptor is aware and concurs with the plan as stated in the body of this note and will attest to such by his/her cosignature. ATTENDING NOTE I, Windy Patel, have independently examined this patient and performed my own physical exam, as well as reviewed the documentation and edited where necessary. I have discussed in detail with the resident / student the findings and plan of treatment as documented by the resident / student and edited their note. I agree with their findings and treatment plan and have edited their documentation. I will continue to follow the patient during this hospital stay. PA FRANKLIN OMS-3 Apr 18, 2021 16:45 WINDY PATEL MD Apr 18, 2021 18:19 ADÁN GRIFFITH D.O. Apr 18, 2021 18:35
[2021-04-18] MEDS: ALBUTEROL SULFATE 2.5 MG/0.5 ML INH NEB SOLN INH PRN (17:17)
[2021-04-18 22:00] VITALS: BP 137/64
[2021-04-19 05:22] VITALS: BP 138/68
[2021-04-19] MEDS: LEVOTHYROXINE 75MCG TABLET (0.075MG) PO SCH (05:23)
[2021-04-19] MEDS: ALBUTEROL SULFATE 2.5 MG/0.5 ML INH NEB SOLN INH PRN (05:41)
[2021-04-19 05:56] LABS: BASO # 0.1 10^3/uL (0.0-0.2); BASO % 0.7 % (0.0-1.0); EOS # 0.1 10^3/uL (0.0-0.5); HEMATOCRIT 35.1 % (36.0-47.0); HEMOGLOBIN 11.2 g/dl (12.0-15.5); LYMPH # 1.5 10^3/uL (1.5-5.0); LYMPH % 13.1 % (24.0-44.0); MEAN CORPUSCULAR HEMOGLOBIN 31.7 pg (27.0-33.0); MEAN CORPUSCULAR HGB CONC 31.9 g/dl (32.0-36.5); MEAN CORPUSCULAR VOLUME 99.4 fl (80.0-96.0); MONO % 8.3 % (2.0-8.0); NEUTROPHILS # 8.7 10^3/uL (1.5-8.5); NEUTROPHILS % 76.4 % (36.0-66.0); PLATELET COUNT, AUTOMATED 388 10^3/uL (150-450); RED BLOOD COUNT 3.53 10^6/uL (4.00-5.40); WHITE BLOOD COUNT 11.4 10^3/uL (4.0-10.0)
[2021-04-19 06:21] LABS: BLOOD UREA NITROGEN 7 MG/DL (7-18); CALCIUM LEVEL 8.2 MG/DL (8.8-10.2); CARBON DIOXIDE LEVEL 31 MEQ/L (21-32); CHLORIDE LEVEL 105 MEQ/L (98-107); CREATININE FOR GFR 0.49 MG/DL (0.55-1.30); GLOMERULAR FILTRATION RATE > 60.0 (>32); GLUCOSE, FASTING 74 MG/DL (70-100); POTASSIUM SERUM 3.9 MEQ/L (3.5-5.1); SODIUM LEVEL 140 MEQ/L (136-145)
[2021-04-19] MEDS: lisinopriL 5 MG TAB PO SCH ×2 (07:58→21:35)
[2021-04-19 09:43] LABS: C REACTIVE PROTEIN QUANTITATIV 1.74 MG/DL (0.00-0.30)
--- NOTE | 2021-04-19 12:12 | IPNPDOC ---
Text Note Date of Service The patient was seen on 04/19/21. NOTE General surgery. Dr. Martinez The patient is an 89-year-old female admitted with SBO. She states she is still having abdominal pain. She has been having bowel movements but despite this she does not report improvement in her pain. Denies nausea or vomiting. Tolerating clear liquids Afebrile. VSS Resting in bed, appears in no acute distress Abdomen soft, still mildly distended, she is reporting discomfort in the mid abdominal area above and below the umbilicus with palpation, stating to stop touching the area during exam. Extremities with no edema. WBC 11.4, hemoglobin 11.2 CT A/P 04/15 MPRESSION: 1. Findings suspicious for distal small bowel obstruction. 2. Mild mesenteric edema and trace pelvic ascites, new. 3. Hepatic and splenic cysts, unchanged. 4. High density splenic lesion, unchanged and indeterminate. 5. High attenuation areas within the peripheral aspect of the liver possibly areas of fatty sparing amidst hepatosteatosis. Consider dynamic enhanced CT scan as clinically warranted. Electronically signed by: Toro Zarate On 04/15/2021 20:03:39 PM UGI SBFT IMPRESSION: Serial images were performed. At the 6 hour uday there is contrast seen entering into dilated distal small bowel loops. Image obtained at the 22 hour uday demonstra ry contrast to be within the colon. There is contrast seen in dilated distal small bowel loops. This suggest a partial small bowel obstruction. There is no etiology identified. <Electronically signed by Javi Ramírez > 04/17/21 0906 AXR FINDINGS: A nasogastric tube is seen in place. There is contrast did distributed throughout the proximal colon to the distal descending segment. There is a small quantity of residual contrast in the small small bowel. The small bowel dilation pattern is slightly improved but not resolved. IMPRESSION: Administered barium is seen in the colon. <Electronically signed by Marek Ramirez > 04/17/[address] abdomen/pelvis with p.o. and IV contrast IMPRESSION: 1. There is an ileus or partial small bowel obstruction with contrast in many of the proximal small bowel loops which are mildly distended and with distal ileum and terminal ileum without contrast. There may be some bowel wall thickening there but it is difficult to discern. No demonstration of a definite transition zone or mass causing partial obstruction. I do not see perforation or free air, abscess or mass. Oral contrast extends from the right colon through the rectosigmoid. There is mild to moderate ascites in the pelvis, mild in the abdomen. 2. Extrarenal pelves without hydronephrosis, renal or ureteral stone or mass. Bladder unremarkable. 3. Multiple renal cysts. Spleen with the cyst and hemangioma. Small hiatal hernia. Extensive atherosclerotic calcification without aneurysm. <Electronically signed by Adelso Pierson > 04/18/21 1310 Assessment/plan SBO The patient is reviewed and examined as per Dr. Martinez this morning. The patient's imaging has been reviewed as per Dr. Martinez. Patient is tolerating clear liquids and has had bowel movement but still reports persistent abdominal pain. This morning Dr. Martinez discussed with the patient and her son by phone, her s ymptoms do not seem consistent with small bowel obstruction related to adhesions and on imaging there has been no definite transition zone. Also on imaging, there has been no definite mass causing obstruction. Some contrast contrast does appear to be moving through to the colon. There was mild to moderate ascites in the pelvis and the mid abdomen. Mesenteric edema/infiltration was also noted. Dr. Martinez discussed with the patient and her son that it would be feasible to monitor and see if the patient tolerates diet and monitor how her symptoms progress versus diagnostic laparoscopy to further investigate. Dr. Martinez extensively discussed with the patient and her son both options. T he patient wants to discuss further with her son, Dr. Martinez plans to return later today to answer any additional questions and determine how they would like to proceed. VS,Fishbone, I+O VS, Fishbone, I+O Laboratory Tests 04/19/21 05:38 Vital Signs Date Time Temp Pulse Resp B/P (MAP) Pulse Ox O2 Delivery O2 Flow Rate FiO2 04/19/21 07:58 138/68 04/19/21 05:22 98.6 76 18 90 Room Air 04/17/21 06:15 2.0 I&O- Last 24 Hours up to 6 AM 04/19/21 05:59 Intake Total 1850 ml Output Total 600 ml Balance 1250 ml Zohra Pineda Apr 19, 2021 12:12
[2021-04-19 14:00] VITALS: BP 143/77
--- NOTE | 2021-04-19 16:35 | IPNPDOC ---
Text Note Date of Service The patient was seen on 04/19/21. NOTE Subjective Pt was seen at bedside this morning and c/o mild lower abdominal pain. She has had 8 bowel movements in last 24 hrs, without much relief in pain level. Pt has been tolerating clear liquids well. She had not yet had and soft foods when seen this morning, but had an appetite. Pt has been ambulating well to bathroom, without an increased level of pain. Since her NG tube was removed, she c/o mild difficulty breathing through the nose, and a productive cough. Denies acute SOB, nausea, vomiting, PETERSON, chest pain, or blood in sputum. Objective Gen: Pt is comfortable lying down and in no distress. Psych: A+Ox3 HEENT: No cervical lymphadenopathy. Oral cavity moist. RESP: CTA b/l, no rhonchi, crackles, or wheeze. CVS: RRR, no murmur, rubs, or gallops. Distal pulses 2/4 b/l. ABD Lower quadrants and RUQ tender to palpation. Non-distended, normoactive bowel sounds. MSK: plantarflexion strength 5/5 b/l. EXT: No distal edema. Imaging CT ABD/PEL W/IV CONTRAST ONLY (04/15) Reported as- Findings suspicious for distal small bowel obstruction. Mild mesenteric edema and trace pelvic ascites, new. Hepatic and splenic cysts, unchanged. High density splenic lesion, unchanged and indeterminate. High attenuation areas within the peripheral aspect of the liver possibly areas of fatty sparing amidst hepatosteatosis. Consider dynamic enhanced CT scan as clinically warranted. CT Chest with contrast (04/15) Reported as- No acute abnormality. 11 mm nodule within the medial right lower lobe, slightly larger. Highly suspicious nodule. CHEST X-RAY (04/15) Reported as- NG tube extending into the stomach. The side hole remains in the distal esophagus. Suggestion of some degree of COPD with borderline cardiomegaly. Upper G.I. with small bowel (04/16) Reported as- Serial images were performed. At the 6 hour uday there is contrast seen entering into dilated distal small bowel loops. Image obtained at the 22 hour uday demonstrates contrast to be within the colon. There is contrast seen in dilated distal small bowel loops. This suggest a partial small bowel obstruction. There is no etiology identified. PORTABLE ABDOMEN (KUB) (04/17) Reported as- Administered barium is seen in the colon. CT ABD/PEL W/IV & ORAL CONTRAST (04/18) Reported as- There is an ileus or partial small bowel obstruction with contrast in many of the proximal small bowel loops which are mildly distended and with distal ileum and terminal ileum without contrast. There may be some bowel wall thickening. No demonstration of a definite transition zone or mass causing partial obstruction. No perforation or free air, abscess or mass. Oral contrast extends from the right colon through the recto-sigmoid. There is mild to moderate ascites in the pelvis, mild in the abdomen. Assessment Pt is a 89yo F w PMHx of COPD, diastolic CHF, HTN, hypothyroidism, pulmonary nodules, hepatic steatosis, and hepatic and renal cysts. She presented to ED on 04/15 with several day hx of abdominal pain, along w constipation, and nausea, which worsened prior to arrival. On initial evaluation she had leukocytosis and elevated lactic acid level, and CT showed evidence of distal SBO. Pt was admitted for evaluation of potential SBO, as well as symptom and pain management. Plan 1. Pain 2/2 Distal Small Bowel Obstruction vs. Ileus CT abdomen showed continued presence of partial SBO vs. ileus. Patients diet has been advanced to mechanical soft foods and low residue. CRP check this morning was elevated at 1.74, possibly suggesting an inflammatory etiology as the cause of her pain. Pain has been mildly decreasing over the last few days and she has not required morphine since 04/16. Surgery is waiting on decision to be made from Pt and family on how to proceed. They were considering an elective, exploratory surgery to determine the cause of her abdominal pain. As of now, no surgery is planned and pt will likely f/u outpatient with PCP or surgery if symptoms persist. 2. COPD Pt was sating 90% on room air this morning, but admits that since the NG tube has been removed she has had mild difficulty breathing through her nose and a productive cough, but also admits the cough is chronic. Pt admits this morning that she used a nebulizer at home 3x every day. Pt was given Albuterol Neb early this morning for sx relief. Pulmonology should be followed up with outpatient to evaluate pulmonary nodule revealed on imaging that was concerning for malignancy. Chest XR was order to r/o any pneumonia. 3. Drop in Hgb H+H stable for last 24hrs, decrease from initial eval of pt is likely related to vol change. Return of mild leukocytosis (WBC 11.4) noted this morning. No signs of bleeding or blood in stool. 4. Diastolic CHF, compensated We are giving home dose of Lisinopril. 5. Hypothyroidism We are giving home dose of Levothyroxine. 6. DVT Prophylaxis We are using TEDs and Seqs. Disposition: If patient is tolerating soft diet well and continues to have bowel movements, we will consider discharge home tomorrow. We will continue speaking with her daughter, who is the health care proxy, concerning the overall plan. VS,Fishbone, I+O VS, Fishbone, I+O Laboratory Tests 04/19/21 05:38 Vital Signs Date Time Temp Pulse Resp B/P (MAP) Pulse Ox O2 Delivery O2 Flow Rate FiO2 04/19/21 14:00 98.0 86 18 143/77 (99) 90 Room Air 04/17/21 06:15 2.0 I&O- Last 24 Hours up to 6 AM 04/19/21 06:00 Intake Total 1080 ml Output Total 600 ml Balance 480 ml GME ATTESTATION GME ATTESTATION My faculty preceptor for this patient encounter was physically present during the encounter and was fully available. All aspects of the patient interview, examination, medical decision making process, and medical care plan development were reviewed and approved by the faculty preceptor. The faculty preceptor is aware and concurs with the plan as stated in the body of this note and will attest to such by his/her cosignature. ATTENDING NOTE I, Windy Patel, have independently examined this patient and performed my own physical exam, as well as reviewed the documentation and edited where necessary. I have discussed in detail with the resident / student the findings and plan of treatment as documented by the resident / student and edited their note. I agree with their findings and treatment plan and have edited their documentation. I will continue to follow the patient during this hospital stay. PA FRANKLIN OMS-3 Apr 19, 2021 16:35 ADÁN GRIFFITH D.O. Apr 19, 2021 18:37 WINDY PATEL MD Apr 21, 2021 11:41
--- NOTE | 2021-04-19 16:58 | REP ---
INDICATION: Cough productive. COMPARISON: Comparison portable chest x-ray 04/15/2021. TECHNIQUE: Two views.. FINDINGS: There is a new parenchymal density consistent with infiltrate just above the dome of the right hemidiaphragm. There is new blunting of the right lateral and right posterior pleural angles. There is a linear opacity in the right inferior perihilar region which is unchanged consistent with atelectasis or fibrosis. Emphysematous changes are noted in the lung apices. No other infiltrate is seen. The heart is not enlarged. IMPRESSION: New infiltrate just above the dome of the right hemidiaphragm associated with small amount of right pleural fluid. Findings consistent with pneumonia.. <Electronically signed by Marek Ramirez > 04/19/21 9828
[2021-04-19 22:00] VITALS: BP 158/67
[2021-04-20 05:46] LABS: BASO # 0.1 10^3/uL (0.0-0.2); BASO % 0.7 % (0.0-1.0); EOS # 0.1 10^3/uL (0.0-0.5); EOS % 0.8 % (0.0-3.0); HEMATOCRIT 33.8 % (36.0-47.0); HEMOGLOBIN 10.9 g/dl (12.0-15.5); LYMPH % 8.1 % (24.0-44.0); MEAN CORPUSCULAR HEMOGLOBIN 31.7 pg (27.0-33.0); MEAN CORPUSCULAR HGB CONC 32.2 g/dl (32.0-36.5); MEAN CORPUSCULAR VOLUME 98.3 fl (80.0-96.0); MONO % 7.9 % (2.0-8.0); PLATELET COUNT, AUTOMATED 386 10^3/uL (150-450); RED BLOOD COUNT 3.44 10^6/uL (4.00-5.40); WHITE BLOOD COUNT 12.2 10^3/uL (4.0-10.0)
[2021-04-20 06:00] VITALS: BP 118/43
[2021-04-20 06:10] LABS: BLOOD UREA NITROGEN 9 MG/DL (7-18); CALCIUM LEVEL 8.1 MG/DL (8.8-10.2); CARBON DIOXIDE LEVEL 31 MEQ/L (21-32); CHLORIDE LEVEL 104 MEQ/L (98-107); CREATININE FOR GFR 0.46 MG/DL (0.55-1.30); GLOMERULAR FILTRATION RATE > 60.0 (>32); GLUCOSE, FASTING 74 MG/DL (70-100); POTASSIUM SERUM 3.9 MEQ/L (3.5-5.1); SODIUM LEVEL 141 MEQ/L (136-145)
[2021-04-20] MEDS: MOXIFLOXACIN 400 MG TAB PO SCH (06:32)
[2021-04-20] MEDS: LEVOTHYROXINE 75MCG TABLET (0.075MG) PO SCH (06:32)
[2021-04-20] MEDS: lisinopriL 5 MG TAB PO SCH ×2 (09:00→20:02)
[2021-04-20] MEDS: ALBUTEROL SULFATE 2.5 MG/0.5 ML INH NEB SOLN INH PRN (09:26)
[2021-04-20] MEDS ORDERED: IPRATROPIUM 0.5MG/ALBUTEROL 2.5MG INH SOL UD 3ML (DUONEB) NEB PRN (10:45)
--- NOTE | 2021-04-20 11:01 | IPNPDOC ---
Text Note Date of Service The patient was seen on 04/20/21. NOTE Subjective Pt was seen at bedside this morning and c/o continued mild abdominal pain, and a decreased appetite. She was able to tolerate some soft foods, however. She complained on mild difficulty breathing and a productive cough. She admits to one bowel movement since yesterday. Pt was less coherent in conversation then she has been in the mornings this week. Denies acute SOB, nausea, vomiting, PETERSON, chest pain. Objective Gen: Pt is in no distress. Psych: Alert, but mildly disoriented, not making sense in her conversations. HEENT: No cervical lymphadenopathy. Oral cavity moist. RESP: CTA b/l, no rhonchi, crackles, or wheeze. CVS: RRR, no murmur, rubs, or gallops. Distal pulses 2/4 b/l. ABD Diffuse, mild tenderness over lower quadrants and RUQ. Non-distended, normoactive sounds. EXT: No distal edema. Skin: No rash, normal temp. Imaging CT ABD/PEL W/IV CONTRAST ONLY (04/15) Reported as- Findings suspicious for distal small bowel obstruction. Mild mesenteric edema and trace pelvic ascites, new. Hepatic and splenic cysts, unchanged. High density splenic lesion, unchanged and indeterminate. High attenuation areas within the peripheral aspect of the liver possibly areas of fatty sparing amidst hepatosteatosis. Consider dynamic enhanced CT scan as clinically warranted. CT Chest with contrast (04/15) Reported as- No acute abnormality. 11 mm nodule within the medial right lower lobe, slightly larger. Highly suspicious nodule. CHEST X-RAY (04/15) Reported as- NG tube extending into the stomach. The side hole remains in the distal esophagus. Suggestion of some degree of COPD with borderline cardiomegaly. Upper G.I. with small bowel (04/16) Reported as- Serial images were performed. At the 6 hour uday there is contrast seen entering into dilated distal small bowel loops. Image obtained at the 22 hour uday demonstrates contrast to be within the colon. There is contrast seen in dilated distal small bowel loops. This suggest a partial small bowel obstruction. There is no etiology identified. PORTABLE ABDOMEN (KUB) (04/17) Reported as- Administered barium is seen in the colon. CT ABD/PEL W/IV & ORAL CONTRAST (04/18) Reported as- There is an ileus or partial small bowel obstruction with contrast in many of the proximal small bowel loops which are mildly distended and with distal ileum and terminal ileum without contrast. There may be some bowel wall thickening. No demonstration of a definite transition zone or mass causing partial obstruction. No perforation or free air, abscess or mass. Oral contrast extends from the right colon through the recto-sigmoid. There is mild to moderate ascites in the pelvis, mild in the abdomen. Chest XR (04/19) Reported as- New infiltrate just above the dome of the right hemidiaphragm associated with small amount of right pleural fluid. Findings consistent with pneumonia. Assessment Pt is a 89yo F w PMHx of COPD, diastolic CHF, HTN, hypothyroidism, pulmonary nodules, hepatic steatosis, and hepatic and renal cysts. She presented to ED on 04/15 with several day hx of abdominal pain, along w constipation, and nausea, which worsened prior to arrival. On initial evaluation she had leukocytosis and elevated lactic acid level, and CT showed evidence of distal SBO. Pt was admitted for evaluation of potential SBO, as well as symptom and pain management. Plan 1. Hospital Associated Pneumonia and COPD Chest XR yesterday evidenced new onset R lower lobe pneumonia, and leukocytosis remains present (WBC at 12.2). We started pt on Moxifloxacin to cover pneumonia. Pt was sating 91% on 2L O2 by nasal cannula this morning. We will order and encourage use of incentive spirometry and acapella to improve respiratory function. We will order Guaifenesin. Albuterol Nebulizer is being used for sx improvement. Outpatient f/u to evaluate pulmonary nodule revealed on imaging that was concerning for malignancy. 2. Pain 2/2 Distal Small Bowel Obstruction vs. Ileus Most recent imaging evidenced continued presence of partial SBO vs. ileus. Patient is tolerating advanced soft diet, but not eating much. CRP yesterday was elevated at 1.74, possibly suggesting an inflammatory etiology as the cause of her pain. She has not complained of pain significant enough to require morphine since 04/16. As of now, no surgery is planned and pt will likely f/u outpatient with PCP or surgery. This decision involved input from healthcare proxy and pt. At a later time, if sx persist, an elective, exploratory surgery to determine the cause of her abdominal pain may be considered. 3. Diastolic CHF, compensated Continue w home dose of Lisinopril. 4. Hypothyroidism Continue with home dose of Levothyroxine. 5. DVT Prophylaxis Continue w TEDs and Sequentials. Disposition: We will continue to monitor how pt is tolerating soft diet. PT and home safety evaluations have been ordered, and we will consider discharge home if cleared, or possibly ARU depending on results. VS,Fishbone, I+O VS, Fishbone, I+O Laboratory Tests 04/20/21 05:27 Vital Signs Date Time Temp Pulse Resp B/P (MAP) Pulse Ox O2 Delivery O2 Flow Rate FiO2 04/20/21 06:00 98.9 69 19 118/43 (68) 91 Nasal Cannula 04/19/21 21:39 2.0 I&O- Last 24 Hours up to 6 AM 04/20/21 05:59 Intake Total 1620 ml Balance 1620 ml GME ATTESTATION GME ATTESTATION My faculty preceptor for this patient encounter was physically present during the encounter and was fully available. All aspects of the patient interview, examination, medical decision making process, and medical care plan development were reviewed and approved by the faculty preceptor. The faculty preceptor is aware and concurs with the plan as stated in the body of this note and will attest to such by his/her cosignature. ATTENDING NOTE I, Windy Patel, have independently examined this patient and performed my own physical exam, as well as reviewed the documentation and edited where necessary. I have discussed in detail with the resident / student the findings and plan of treatment as documented by the resident / student and edited their note. I agree with their findings and treatment plan and have edited their documentation. I will continue to follow the patient during this hospital stay. PA FRANKLIN OMS-3 Apr 20, 2021 11:01 WINDY PATEL MD Apr 20, 2021 12:25 ADÁN GRIFFITH D.O. Apr 20, 2021 15:20
[2021-04-20] MEDS ORDERED: ACETAMINOPHEN TAB 650MG DOSE (2X325MG) PO PRN (11:30)
[2021-04-20 14:20] VITALS: BP 133/58
[2021-04-20 20:03] VITALS: BP 140/59
[2021-04-21] MEDS: LEVOTHYROXINE 75MCG TABLET (0.075MG) PO SCH (05:34)
[2021-04-21] MEDS: MOXIFLOXACIN 400 MG TAB PO SCH (05:34)
[2021-04-21 06:00] VITALS: BP 134/65
[2021-04-21 06:46] LABS: BASO # 0.1 10^3/uL (0.0-0.2); BASO % 0.7 % (0.0-1.0); EOS # 0.2 10^3/uL (0.0-0.5); EOS % 2.7 % (0.0-3.0); HEMATOCRIT 34.7 % (36.0-47.0); LYMPH # 0.9 10^3/uL (1.5-5.0); MEAN CORPUSCULAR HEMOGLOBIN 31.1 pg (27.0-33.0); MEAN CORPUSCULAR HGB CONC 31.7 g/dl (32.0-36.5); MONO # 0.9 10^3/uL (0.0-0.8); MONO % 11.3 % (2.0-8.0); NEUTROPHILS # 5.6 10^3/uL (1.5-8.5); NEUTROPHILS % 72.6 % (36.0-66.0); PLATELET COUNT, AUTOMATED 384 10^3/uL (150-450); RED BLOOD COUNT 3.54 10^6/uL (4.00-5.40); WHITE BLOOD COUNT 7.7 10^3/uL (4.0-10.0)
[2021-04-21 07:15] LABS: BLOOD UREA NITROGEN 11 MG/DL (7-18); CARBON DIOXIDE LEVEL 31 MEQ/L (21-32); CHLORIDE LEVEL 106 MEQ/L (98-107); CREATININE FOR GFR 0.43 MG/DL (0.55-1.30); GLOMERULAR FILTRATION RATE > 60.0 (>32); GLUCOSE, FASTING 83 MG/DL (70-100); POTASSIUM SERUM 3.2 MEQ/L (3.5-5.1); SODIUM LEVEL 140 MEQ/L (136-145)
[2021-04-21 08:24] VITALS: BP 134/65
[2021-04-21] MEDS: POTASSIUM CHLORIDE 10 MEQ SR TABLET PO SCH ×2 (08:24→11:06)
[2021-04-21] MEDS: lisinopriL 5 MG TAB PO SCH (08:24)
[2021-04-21] MEDS ORDERED: MOXI400T11 PO (09:48)
--- NOTE | 2021-04-21 15:22 | DS.PDOC ---
Discharge Summary General Date of Admission Apr 15, 2021 at 20:28 Date of Discharge April 21, 2021 Primary Care Physician: CELESTINA LIRA DO Attending Physician: WINDY PATEL MD Specialist/Consultants Involve: VENKATESH ZEPEDA MD Discharge Summary PROCEDURES PERFORMED DURING STAY: None. ADMITTING DIAGNOSES: Distal small bowel obstruction Compensated diastolic CHF Compensated COPD Pulmonary arterial hypertension Hypertensive urgency Hypothyroidism Spiculated pulmonary nodule concerning for malignancy Hepatic cyst Renal cyst Splenic cyst Fatty liver disease DISCHARGE DIAGNOSES: Pneumonia Chronic abdominal pain Compensated diastolic CHF Compensated COPD Pulmonary arterial hypertension Hypertension Hypothyroidism Spiculated pulmonary nodule concerning for malignancy Hepatic cyst Renal cyst Splenic cyst Fatty liver disease COMPLICATIONS/CHIEF COMPLAINT: Generalized abdominal pain HISTORY OF PRESENT ILLNESS: 89-year-old female who initially presented to the hospital complaining of 1 week of abdominal pain and constipation. Patient also reported nausea without vomiting. She states she had not been passing gas. She denied any fevers or chills at home. She reports improvement of the pain when laying still and wo rsening of the pain when moving. Patient had also reported decreased appetite and decreased oral intake. Patient denies any weight loss. On evaluation in the emergency room, the patient was found to be tachypneic with elevated WBC count and lactic acidosis. CT of the abdomen and pelvis showed a possible distal small bowel obstruction with mild mesenteric edema and trace pelvic ascites. It also revealed new hepatic and splenic cysts. HOSPITAL COURSE: The patient was admitted to the hospital under the medicine service. Surgery was consulted for the distal small bowel obstruction. The patient was kept n.p.o. and NG tube was placed to low intermittent suction. The patient was started on IV maintenance fluids. The patient did have a upper GI series with small bowel follow-through that did not show any clear cause of obstruction. The contrast was noted to pass through the small bowel. The patient had moderate output from her NG tube. Her symptoms did improve with NG tube decomp ression. The patient's NGT was removed and she was started on a clear liquid diet. Her diet was advanced as tolerated and she was able to tolerate a regular diet. She continues to have intermittent poor oral intake due to poor appetite and disinterest in the food. Her meals were supplemented with protein shakes. Surgical team considered exploratory surgery to determine the cause of the bowel obstruction, at this point the patient would not like to undergo surgical intervention as her symptoms have improved. The patient was noted to be fairly hypertensive on admission. This resolved with her home oral medications. During the patient's admission, she did develop some hypoxia requiring supplemental oxygen via nasal cannula. The patient did report a productive cough of yellow sputum. Chest x-ray revealed right lower lobe pneumonia. The patient was started on oral moxifloxacin and will continue on this for 7 days. Prescription for the remaining course of the antibiotic was sent to the patient's pharmacy. She can continue to use her home albuterol inhalers and nebulizers as needed for shortness of breath. On the day of discharge, the patient was saturating above 88% on room air and was not requiring any supplemental oxygen. Additionally, on CT scan on admission the patient was noted to have an 11 mm spiculated nodule in the medial right lower lobe of the lung that is suspicious for malignancy. There is no evidence of this being worked up in the past. Follow-up imaging is recommended. The patient was also known to have hepatic cyst, renal cyst, and a splenic cyst on her imaging results. Follow-up per current guidelines. The patient was discharged home where she has 14/04 care. DISCHARGE MEDICATIONS: Please see below. ALLERGIES: Please see below. PHYSICAL EXAMINATION ON DISCHARGE: VITAL SIGNS: Please see below. GENERAL: Alert, comfortable, in no acute distress HEENT: Normocephalic, atraumatic, moist mucous membranes NECK: Supple, trachea midline CARDIOVASCULAR: Regular rate and rhythm, normal S1 and S2. RESPIRATORY: Clear to auscultation bilaterally with equal air entry bilaterally. No wheezing, rhonchi, or rales. ABDOMEN: Mildly tender to palpation throughout without any rebound, guarding, or rigidity. Soft, nondistended, bowel sounds present. NEUROLOGIC: No focal deficits appreciated PSYCHIATRIC: Mood and affect appropriate LABORATORY DATA: Please see below. IMAGING: (Impressions per radiologist report) CT abdomen/pelvis 04/15/2021 1. Findings suspicious for distal small bowel obstruction. 2. Mild mesenteric edema and trace pelvic ascites, new. 3. Hepatic and splenic cysts, unchanged. 4. High density splenic lesion, unchanged and indeterminate. 5. High attenuation areas within the peripheral aspect of the liver possibly areas of fatty sparing amidst hepatosteatosis. Consider dynamic enhanced CT scan as clinically warranted. CT chest 04/15/2021 1. No acute abnormality. See above discussion for other findings. 2. 11 mm nodule within the medial right lower lobe (axial image 70 of series 201), slightly larger. Highly suspicious nodule. Consider non-emergent PET/CT, or tissue sampling.(Reference: Awa) CXR 04/15/2021 1. NG tube extending into the stomach. The side hole remains in the distal esophagus. 2. Suggestion of some degree of COPD with borderline cardiomegaly. Upper GI series with small bowel follow-through 04/16/2021 Serial images were performed. At the 6 hour uday there is contrast seen entering into dilated distal small bowel loops. Image obtained at the 22 hour uday demonstrates contrast to be within the colon. There is contrast seen in dilated distal small bowel loops. This suggest a partial small bowel obstruction. There is no etiology identified. XR abdomen 04/17/2021 Administered barium is seen in the colon. CT abdomen/pelvis 04/18/2021 1. There is an ileus or partial small bowel obstruction with contrast in many of the proximal small bowel loops which are mildly distended and with distal ileum and terminal ileum without contrast. There may be some bowel wall thickening there but it is difficult to discern. No demonstration of a definite transition zone or mass causing partial obstruction. I do not see perforation or free air, abscess or mass. Oral contrast extends from the right colon through the rectosigmoid. There is mild to moderate ascites in the pelvis, mild in the abdomen. 2. Extrarenal pelves without hydronephrosis, renal or ureteral stone or mass. Bladder unremarkable. 3. Multiple renal cysts. Spleen with the cyst and hemangioma. Small hiatal hernia. Extensive atherosclerotic calcification without aneurysm. CXR 04/19/2021 New infiltrate just above the dome of the right hemidiaphragm associated with small amount of right pleural fluid. Findings consistent with pneumonia. PROGNOSIS: Fair ACTIVITY: As tolerated. DIET: As tolerated DISCHARGE PLAN: Home with care, to follow-up outpatient on abdominal pain DISPOSITION: 06 Home Health Service. DISCHARGE INSTRUCTIONS: Follow-up with your PCP in 7-10 days Follow up with surgery in 2 weeks Please take the complete course of antibiotics for pneumonia If your symptoms return or your condition worsens, please call your PCP or return to the ED for further evaluation. [facility] ([phone]) will contact you to set up care in the home. ITEMS TO FOLLOWUP ON ON OUTPATIENT: 1. Pneumonia, complete course of moxifloxacin 2. Small bowel obstruction, resolved, follow-up continued abdominal pain 3. Suspicious pulmonary spiculated lesion, may need further imaging 4. CT imaging showing hepatic cysts, renal cysts, and splenic cyst. Follow-up per guidelines DISCHARGE CONDITION: Stable. TIME SPENT ON DISCHARGE: 35 minutes. Vital Signs/I&Os Vital Signs Date Time Temp Pulse Resp B/P (MAP) Pulse Ox O2 Delivery O2 Flow Rate FiO2 04/21/21 08:24 134/65 04/21/21 06:00 99.0 75 22 92 Room Air 04/19/21 21:39 2.0 I&O- Last 24 Hours up to 6 AM 04/21/21 06:00 Intake Total 1620 ml Balance 1620 ml Laboratory Data Labs 24H Laboratory Tests 2 04/21/21 06:35: Immature Granulocyte % (Auto) 0.7, Neutrophils (%) (Auto) 72.6H, Lymphocytes (%) (Auto) 12.0L, Monocytes (%) (Auto) 11.3H, Eosinophils (%) (Auto) 2.7, Basophils (%) (Auto) 0.7, Neutrophils # (Auto) 5.6, Lymphocytes # (Auto) 0.9L, Monocytes # (Auto) 0.9H, Eosinophils # (Auto) 0.2, Basophils # (Auto) 0.1, Nucleated Red Blood Cells % (auto) 0.0, Anion Gap 3L, Glomerular Filtration Rate > 60.0, Calcium Level 8.0L CBC/BMP Laboratory Tests 04/21/21 06:35 Discharge Medications Scheduled Calcium Carbonate/Vitamin D3 (Calcium 600-Vit D3 400 Tablet) 1 Each Tablet, 1 TAB PO DAILY, (Reported) Diphenhydramine HCl (Diphenhydramine HCl) 25 Mg Capsule, 25 MG PO QHS, (Reported) Docusate Sodium (Stool Softener) 100 Mg Capsule, 100 MG PO BID, (Reported) Fluticasone/Umeclidin/Vilanter (Trelegy Ellipta 200-62.5-25) 200-62.5 Blst.w.dev, 1 PUFF IH DAILY, (Reported) Levothyroxine Sodium (Synthroid) 75 Mcg Tab, 75 MCG PO DAILY, (Reported) Lisinopril (Lisinopril) 5 Mg Tablet, 5 MG PO BID, (Reported) Moxifloxacin HCl (Moxifloxacin HCl) 400 Mg Tablet, 400 MG PO DAILY@06 Pleaes take 1 tablet per day starting on 04/22 for 5 days Polyethylene Glycol 3350 (Miralax) 119 Gm Powder, 17 GM PO BID, (Reported) dilute in 8 ounces of water or juice Vit A/Vit C/Vit E/Zinc/Copper (Preservision Areds Softgel) 1 Each Capsule, 1 CAP PO BID, (Reported) Scheduled PRN Acetaminophen (Acetaminophen) 500 Mg Tablet, 1,000 MG PO Q6H PRN for PAIN, (Reported) Albuterol Sulf (Albuterol Sulfate) 2.5 Mg/3 Ml Nebu, 2.5 MG INH Q4H PRN for SHORTNESS OF BREATH, (Reported) Albuterol Sulfate (Proair Hfa) 108 Mcg/Act Aer, 2 PUFFS INH QID PRN for SHORTNES S OF BREATH, (Reported) Propylene Glycol/Peg 400 (Systane 0.3-0.4% Eye Drops) 15 Ml Monik, 1 DROP OU PRN PRN for DRY EYES, (Reported) Allergies Coded Allergies: Aminoglycosides (Verified Allergy, Unknown, 07/10/19) bacitracin (Verified Allergy, Unknown, 07/10/19) neomycin (Verified Allergy, Unknown, 07/10/19) polymyxin B (Verified Allergy, Unknown, 07/10/19) GME ATTESTATION GME ATTESTATION My faculty preceptor for this patient encounter was physically present during the encounter and was fully available. All aspects of the patient interview, examination, medical decision making process, and medical care plan development were reviewed and approved by the faculty preceptor. The faculty preceptor is aware and concurs with the plan as stated in the body of this note and will attest to such by his/her cosignature. ATTENDING NOTE I, Windy Patel, have independently examined this patient and performed my own physical exam, as well as reviewed the documentation and edited where necessary. I have discussed in detail with the resident / student the findings and plan of treatment as documented by the resident / student and edited their note. I agree with their findings and treatment plan and have edited their documentation. I will continue to follow the patient during this hospital stay. Time spent on discharge 35 minutes ADÁN GRIFFITH D.O. Apr 21, 2021 15:22 WINDY PATEL MD Apr 21, 2021 16:59
== END 2021-04-21 11:35 | disposition home health service (06) | DRG 388 ==
LOC: M ED 16:15 → M ED INP 20:28 → M MS5PR 04-16 05:23
PROVIDERS: ADMIT General Practice; ATTEND Internal Medicine
DX: K56.600 Partial intestinal obstruction, unspecified as to cause (principal); J18.9 Pneumonia, unspecified organism; I50.32 Chronic diastolic (congestive) heart failure; J44.0 Chronic obstructive pulmonary disease with (acute) lower respiratory infection; K76.89 Other specified diseases of liver; I11.0 Hypertensive heart disease with heart failure; K76.0 Fatty (change of) liver, not elsewhere classified; I27.20 Pulmonary hypertension, unspecified; E03.9 Hypothyroidism, unspecified; D73.4 Cyst of spleen; N28.1 Cyst of kidney, acquired; I16.0 Hypertensive urgency; R91.1 Solitary pulmonary nodule; Z87.891 Personal history of nicotine dependence; Z90.49 Acquired absence of other specified parts of digestive tract; K59.00 Constipation, unspecified; Z20.822 Contact with and (suspected) exposure to COVID-19; Z79.899 Other long term (current) drug therapy; Z88.8 Allergy status to other drugs, medicaments and biological substances; Z99.81 Dependence on supplemental oxygen; Y95 Nosocomial condition

== ENCOUNTER 2021-04-25 14:52 | Inpatient (IN) | payer MEDICARE ==
[~2021-04-25] VITALS: Ht 160 cm; Wt 46.0 kg
[~2021-04-25 14:52] MED LIST changes: +FLUT1BLS8 IH; +LISI-898 PO; +MIRA3350 PO; +MM S100C PO; +MOXI400T11 PO
[2021-04-25] MEDS ORDERED: IPRATROPIUM 0.5MG/ALBUTEROL 2.5MG INH SOL UD 3ML (DUONEB) NEB ONE (15:35)
[2021-04-25] MEDS ORDERED: methylPREDNISolone 125MG 2ML VIAL IV ONE (15:35)
[2021-04-25] MEDS ORDERED: ALBUTEROL SULFATE 2.5 MG/0.5 ML INH NEB SOLN INH ONE (15:35)
--- NOTE | 2021-04-25 15:59 | REP ---
INDICATION: DYSPNEA/COUGH. COMPARISON: PA and lateral chest dated 04/19/2021 and multiple chest CTs dating to 12/09/2017. TECHNIQUE: Portable AP chest with the patient upright. FINDINGS: The infiltrate above the dome of the right hemidiaphragm identified on the PA and lateral chest 04/19/2021 has resolved. The small associated right pleural effusion has also resolved. There is chronic collapse of the right middle lobe medial segment unchanged from the prior chest CTs dating at least to 12/09/2017. This is seen is a small triangular shaped density along the right cardiac margin the study today, unchanged from the PA and lateral study of 04/19/2021. Lung palafox are otherwise clear. Cardiac size is normal. The silviano, mediastinum, and skeletal structures are unchanged. IMPRESSION: The infiltrate and pleural effusion identified inferiorly in the right hemithorax on 04/19/2021 have resolved. There is chronic collapse of the right middle lobe medial segment as described. <Electronically signed by Shelton Robles > 04/25/21 1991
[2021-04-25 16:01] LABS: ABG HCO3 24.1 MEQ/L (22.0-26.0); ABG O2 SATURATION 97.5 % (95.0-99.0); ABG PARTIAL PRESSURE CO2 41.5 mmHg (35.0-45.0); ABG PARTIAL PRESSURE O2 95.7 mmHg (75.0-100.0); ABG STANDARD HCO3 23.7 MEQ/L (22.0-26.0); ABG TOTAL CO2 25.4 MEQ/L (23.0-31.0); ABG pH (ARTERIAL) 7.382 UNITS (7.350-7.450)
[2021-04-25 16:02] LABS: BASO # 0.1 10^3/uL (0.0-0.2); BASO % 0.6 % (0.0-1.0); EOS % 0.1 % (0.0-3.0); HEMOGLOBIN 12.1 g/dl (12.0-15.5); LYMPH # 1.2 10^3/uL (1.5-5.0); LYMPH % 14.6 % (24.0-44.0); MEAN CORPUSCULAR HEMOGLOBIN 30.7 pg (27.0-33.0); MONO # 1.4 10^3/uL (0.0-0.8); MONO % 17.2 % (2.0-8.0); NEUTROPHILS # 5.5 10^3/uL (1.5-8.5); NEUTROPHILS % 66.9 % (36.0-66.0); PLATELET COUNT, AUTOMATED 365 10^3/uL (150-450); RED BLOOD COUNT 3.94 10^6/uL (4.00-5.40); WHITE BLOOD COUNT 8.2 10^3/uL (4.0-10.0)
[2021-04-25 16:14] LABS: INR 1.32; PROTHROMBIN TIME 16.8 SECONDS (12.7-14.5)
[2021-04-25 16:42] LABS: ALBUMIN 2.8 GM/DL (3.2-5.2); ALT/SGPT 17 U/L (12-78); BILIRUBIN,DIRECT < 0.1 MG/DL (0.0-0.2); BILIRUBIN,TOTAL 0.3 MG/DL (0.2-1.0); BLOOD UREA NITROGEN 22 MG/DL (7-18); CARBON DIOXIDE LEVEL 29 MEQ/L (21-32); CHLORIDE LEVEL 101 MEQ/L (98-107); CK-MB VALUE MASS 1.8 NG/ML (<3.6); CPK CREATINE PHOSPHOKINASE 91 U/L (26-192); CREATININE FOR GFR 1.16 MG/DL (0.55-1.30); GLOMERULAR FILTRATION RATE 46.9 (>32); GLUCOSE, FASTING 130 MG/DL (70-100); LIPASE 97 U/L (73-393); MB/CK RELATIVE INDEX 1.98 (< OR =4); NT-PRO BNP 2203 PG/ML (<450); POTASSIUM SERUM 4.2 MEQ/L (3.5-5.1); SODIUM LEVEL 138 MEQ/L (136-145); THYROXINE (T4) 9.8 UG/DL (4.5-12.0); TOTAL PROTEIN 5.5 GM/DL (6.4-8.2); TROPONIN I 0.03 NG/ML (< 0.10)
[2021-04-25] MEDS ORDERED: ISOVUE-370 76% 100ML VIAL As Ordered ONE (17:37)
--- NOTE | 2021-04-25 18:27 | REPVR ---
PROCEDURE INFORMATION: Exam: CT Abdomen And Pelvis With Contrast Exam date and time: 04/25/2021 5:55 PM Age: 89 years old Clinical indication: Other: Sbo; Additional info: SOB, recent hosp/pneum/bowel obstru TECHNIQUE: Imaging protocol: Computed tomography of the abdomen and pelvis with contrast. Radiation optimization: All CT scans at this facility use at least one of these dose optimization techniques: automated exposure control; mA and/or kV adjustment per patient size (includes targeted exams where dose is matched to clinical indication); or iterative reconstruction. Contrast material: ISOVUE 370; Contrast volume: 100 ml; Contrast route: INTRAVENOUS (IV); COMPARISON: CT ABD/PEL W/IV ORAL CONTRAS 04/18/2021 11:23 AM FINDINGS: Lungs: Marked bilateral paraseptal and centrilobular emphysematous changes. Bibasilar atelectasis. Pleural spaces: Bibasilar pleural thickening. Liver: Multiple hepatic lucencies demonstrated with the larger foci consistent with cysts measuring up to 1.7 x 3.1 cm in the inferior aspect of the right lobe, thinly septated. Hyperenhancing foci redemonstrated in the peripheral subcapsular aspects of the liver with the largest lesion in the inferior aspect of the right lobe of the liver measuring 1.2 x 1.4 cm. In the non cirrhotic liver chief differential diagnosis includes flash filling hemangioma and focal nodular hyperplasia. In the cirrhotic liver the possibility of dysplastic nodules and HCC to be considered. Gallbladder and bile ducts: Hydropic gallbladder without evidence of calculi, wall thickening or pericholecystic fluid. Pancreas: There is diffuse pancreatic atrophy. Spleen: Redemonstration of calcified granulomata and a small cyst within the spleen. Ring shaped enhancing lesion demonstrated in the anterior spleen measures 10 mm grossly stable in size. Adrenal glands: Normal. No mass. Kidneys and ureters: Normal. No hydronephrosis. Stomach and bowel: Mild diverticulosis is present in the distal colon. No diverticulitis. There are foci of apparent extraluminal gas demonstrated in the mid pelvic region which appear to originate from small bowel loops. Appendix: No evidence of appendicitis. Intraperitoneal space: There is evidence of mesenteric twisting demonstrated in the lower abdomen pelvic region, finding in this location which may signify the presence of an internal hernia. There is mild dilatation of small bowel loops demonstrated proximally consistent with small-bowel obstruction. Vasculature: The aortoiliac vessels demonstrate moderate atherosclerotic calcification. Lymph nodes: Unremarkable. No enlarged lymph nodes. Urinary bladder: Unremarkable as visualized. Reproductive: There has been a hysterectomy. Bones/joints: Severe central spinal stenosis L3-L4, L4-L5 and L5-S1. Soft tissues: Unremarkable. Other findings: Osteoporosis. IMPRESSION: 1. Redemonstration of calcified granulomata and a small cyst within the spleen. Ring shaped enhancing lesion demonstrated in the anterior spleen measures 10 mm grossly stable in size. 2. Stable hepatic cysts. 3. Stable hyperenhancing foci demonstrated in the liver as described above. Further evaluation could be obtained with pre and post-contrast hepatic MRI including dynamic postcontrast imaging. 4. There is diffuse pancreatic atrophy. 5. Hydropic gallbladder without evidence of calculi, wall thickening or pericholecystic fluid. 6. There has been a hysterectomy. 7. Mild diverticulosis is present in the distal colon. No diverticulitis. 8. There is evidence of mesenteric twisting demonstrated in the lower abdomen pelvic region, finding in this location which may signify the presence of an internal hernia. There is mild dilatation of small bowel loops demonstrated proximally consistent with small-bowel obstruction. 9. There are foci of apparent extraluminal gas demonstrated in the mid pelvic region which appear to originate from small bowel loops. Electronically signed by: Tyler Bartholomew On 04/25/2021 18:27:01 PM
--- NOTE | 2021-04-25 18:39 | REPVR ---
PROCEDURE INFORMATION: Exam: CTA Chest With Contrast Exam date and time: 04/25/2021 5:55 PM Age: 89 years old Clinical indication: Shortness of breath; Additional info: SOB, recent hosp/pneum/bowel obstru TECHNIQUE: Imaging protocol: Computed tomographic angiography of the chest with contrast. 3D rendering (Not supervised by radiologist): MIP and/or 3D reconstructed images were created by the technologist. Radiation optimization: All CT scans at this facility use at least one of these dose optimization techniques: automated exposure control; mA and/or kV adjustment per patient size (includes targeted exams where dose is matched to clinical indication); or iterative reconstruction. Contrast material: ISOVUE 370; Contrast volume: 100 ml; Contrast route: INTRAVENOUS (IV); COMPARISON: CT ANGIO CHEST 12/15/2020 2:13 PM FINDINGS: Pulmonary arteries: There is enlargement of the central pulmonary arteries, findings which can be associated with pulmonary arterial hypertension which should be correlated clinically. There are no pulmonary emboli. Aorta: There is no aortic dissection or aneurysm. Lungs: Moderate to severe centrilobular and paraseptal emphysematous changes demonstrated bilaterally most pronounced in the upper mid lung zones. COPD. No acute pulmonary infiltrates. Chronic ovoid parenchymal opacity in the medial basal segment of the right lower lobe measures 1 x 1.3 x 0.8 cm (series 42, image 64, for example) has decreased in volume in this slightly more aerated than demonstrated previously. Bibasilar atelectasis, right greater than left. Clinical correlation to exclude pneumonitis suggested. Chronic atelectasis involving the medial segment of the right middle lobe again redemonstrated with occlusion of the proximal and segmental right middle lobe airways. Finding may be secondary to mucous plugging and is grossly stable. Considering stability neoplastic involvement is considered unlikely. Multiple partially occluded airways demonstrated in the bronchus intermedius and extending to the lower lobe segmental airways on the right consistent with chronic mucous plugging with without acute reactive a nonreactive airway disease. Pleural spaces: Unremarkable. No pneumothorax. No pleural effusion. Heart: There is mild atherosclerotic calcification of the coronary arteries. Lymph nodes: Unremarkable. No enlarged lymph nodes. Bones/joints: Osteoporosis. Soft tissues: See "Lungs" finding. IMPRESSION: 1. Moderate to severe centrilobular and paraseptal emphysematous changes demonstrated bilaterally most pronounced in the upper mid lung zones. COPD. 2. Decreasing volume of a right lower lobe pulmonary parenchymal nodule as described above. 3. Bibasilar atelectasis, right greater than left. Clinical correlation to exclude pneumonitis suggested. 4. Chronic atelectasis involving the medial segment of the right middle lobe again redemonstrated with occlusion of the proximal and segmental right middle lobe airways. Finding may be secondary to mucous plugging and is grossly stable. Considering stability neoplastic involvement is considered unlikely. 5. Multiple partially occluded airways demonstrated in the bronchus intermedius and extending to the lower lobe segmental airways on the right consistent with chronic mucous plugging with without acute reactive a nonreactive airway disease. 6. There is no aortic dissection or aneurysm. 7. There is enlargement of the central pulmonary arteries, findings which can be associated with pulmonary arterial hypertension which should be correlated clinically. 8. There are no pulmonary emboli. Electronically signed by: Tyler Bartholomew On 04/25/2021 18:38:50 PM
--- NOTE | 2021-04-25 19:17 | ECGEPIP ---
[facility] - ED Test Date: 2021-04-25 Pat Name: DANIELE HASTINGS Department: Room: - Gender: Female Telecom Analyst: LR : [id number] Requested By: Farhan Flowers Order Number: [id number] Reading MD: Farhan Flowers Measurements Intervals [place] Rate: 78 P: 91 GA: 146 QRS: 85 QRSD: 74 T: 29 QT: 412 QTc: 469 Interpretive Statements Normal sinus rhythm with sinus arrhythmia Nonspecific ST T wave changes 04/15/[address] T wave changes Electronically Signed on 04-25-2021 19:17:16 EDT by Farhan Flowers
[2021-04-25] MEDS ORDERED: MOXI1TAB PO (19:24)
[2021-04-25] MEDS ORDERED: HOME MED LIST COMPLETE! XX SCH (19:25)
[2021-04-25] MEDS ORDERED: LEVALBUTEROL 1.25 MG/0.5 ML CONCENTRATE NEB NEB PRN (19:45)
[2021-04-25] MEDS ORDERED: POLYVINYL ALCOHOL OPHTH SOLN 15 ML(LIQUITEARS) OU PRN (19:55)
[2021-04-25] MEDS ORDERED: ACETAMINOPHEN 500 MG TAB PO PRN (19:55)
--- NOTE | 2021-04-25 19:56 | HPEPDOC ---
[facility] Medical History & Physical Date of Admission Apr 25, 2021 Date of Service: Apr 25, 2021 Attending Physician: KEVON SNYDER MD History and Physical CHIEF COMPLAINT: [89 y/o female c/o increasing sob x1 week] HISTORY OF PRESENT ILLNESS: [Patient is a very poor historian. This is an 89 y/o female with a pmh of chf, hld, copd, hypothyroidism who reports to our ED on 04/25 with a cc of shortness of breath that has been increasing for 1 week. Patient states that she has also had increasing pain in her rlq for the past week as well. Patient admits to a few episodes of vomiting but is not able to specify when or how many episodes have occurred. Patient tells me that she is able to eat and drink and does not feel as though she has a weak appetite. Patient tells me that her last bowel movement was today. Patient tells me that she has no fever, chills, chest pain, dysuria, pedal edema. Patient recently had a stay in our hospital from 04/15-04/21 for a small bowel obstruction in which she was treated with medical management. Imaging in the ED today shows small bowel obstruction. Patient also found to have parainfluenza infection.] PAST MEDICAL HISTORY: 1. [See HPI PAST SURGICAL HISTORY: 1. [B/l cataract removal]. 2. [Appendectomy]. 3. [Hysterectomy 4. Unspecified left leg surgery 5. Unspecified left wrist surgery 6. Unspecified kidney surgery]. SOCIAL HISTORY: Resides in: [Patient tells me that she lives with her son] Tobacco use:[Denies] ETOH: [Denies] Illicit drug use: [Denies] FAMILY HISTORY: Unable to obtain. ALLERGIES: Please see below. REVIEW OF SYSTEMS: Unable to obtain accurate ros d/t patients mentation HOME MEDICATIONS: Please see below. PHYSICAL EXAMINATION: VITAL SIGNS: Please see below. GENERAL APPEARANCE: [This is a frail 89 y/o female. She appears to have moderately increased work of breathing. She is alert to questioning but frequently not oriented.]. HEENT: [No mass or lesion. EOMI. No scleral icterus. Nares patent. Oral mucosa moist.]. CARDIOVASCULAR: [Regular rate, rhythm. No murmurs, rubs, gallops]. LUNGS: [Coarse breath sounds b/l. Scattered wheezing appreciated in the right lung.]. ABDOMEN: [Soft, nontender]. MUSCULOSKELETAL: [No joint deformity noted.]. EXTREMITIES: [No peripheral edema appreciated. No overlying skin changes. Pulses intact.]. NEUROLOGICAL: [Speech clear but nonsensible at times. Patient oriented to self only. No focal deficits.]. PSYCHIATRIC: [Patient is confused.]. LABORATORY DATA: See below. IMAGING: [CXR: FINDINGS: The infiltrate above the dome of the right hemidiaphragm identified on the PA and lateral chest 04/19/2021 has resolved. The small associated right pleural effusion has also resolved. There is chronic collapse of the right middle lobe medial segment unchanged from the prior chest CTs dating at least to 12/09/2017. This is seen is a small triangular shaped density along the right cardiac margin the study today, unchanged from the PA and lateral study of 04/19/2021. Lung palafox are otherwise clear. Cardiac size is normal. The silviano, mediastinum, and skeletal structures are unchanged. IMPRESSION: The infiltrate and pleural effusion identified inferiorly in the right hemithorax on 04/19/2021 have resolved. There is chronic collapse of the right middle lobe medial segment as described. CT Abd/pelvis: FINDINGS: Lungs: Marked bilateral paraseptal and centrilobular emphysematous changes. Bibasilar atelectasis. Pleural spaces: Bibasilar pleural thickening. Liver: Multiple hepatic lucencies demonstrated with the larger foci consistent with cysts measuring up to 1.7 x 3.1 cm in the inferior aspect of the right lobe, thinly septated. Hyperenhancing foci redemonstrated in the peripheral subcapsular aspects of the liver with the largest lesion in the inferior aspect of the right lobe of the liver measuring 1.2 x 1.4 cm. In the non cirrhotic liver chief differential diagnosis includes flash filling hemangioma and focal nodular hyperplasia. In the cirrhotic liver the possibility of dysplastic nodules and HCC to be considered. Gallbladder and bile ducts: Hydropic gallbladder without evidence of calculi, wall thickening or pericholecystic fluid. Pancreas: There is diffuse pancreatic atrophy. Spleen: Redemonstration of calcified granulomata and a small cyst within the spleen. Ring shaped enhancing lesion demonstrated in the anterior spleen measures 10 mm grossly stable in size. Adrenal glands: Normal. No mass. Kidneys and ureters: Normal. No hydronephrosis. Stomach and bowel: Mild diverticulosis is present in the distal colon. No diverticulitis. There are foci of apparent extraluminal gas demonstrated in the mid pelvic region which appear to originate from small bowel loops. Appendix: No evidence of appendicitis. Intraperitoneal space: There is evidence of mesenteric twisting demonstrated in the lower abdomen pelvic region, finding in this location which may signify the presence of an internal hernia. There is mild dilatation of small bowel loops demonstrated proximally consistent with small-bowel obstruction. Vasculature: The aortoiliac vessels demonstrate moderate atherosclerotic calcification. Lymph nodes: Unremarkable. No enlarged lymph nodes. Urinary bladder: Unremarkable as visualized. Reproductive: There has been a hysterectomy. Bones/joints: Severe central spinal stenosis L3-L4, L4-L5 and L5-S1. Soft tissues: Unremarkable. Other findings: Osteoporosis. IMPRESSION: 1. Redemonstration of calcified granulomata and a small cyst within the spleen. Ring shaped enhancing lesion demonstrated in the anterior spleen measures 10 mm grossly stable in size. 2. Stable hepatic cysts. 3. Stable hyperenhancing foci demonstrated in the liver as described above. Further evaluation could be obtained with pre and post-contrast hepatic MRI including dynamic postcontrast imaging. 4. There is diffuse pancreatic atrophy. 5. Hydropic gallbladder without evidence of calculi, wall thickening or pericholecystic fluid. 6. There has been a hysterectomy. 7. Mild diverticulosis is present in the distal colon. No diverticulitis. 8. There is evidence of mesenteric twisting demonstrated in the lower abdomen pelvic region, finding in this location which may signify the presence of an internal hernia. There is mild dilatation of small bowel loops demonstrated proximally consistent with small-bowel obstruction. 9. There are foci of apparent extraluminal gas demonstrated in the mid pelvic region which appear to originate from small bowel loops. CTA Chest: FINDINGS: Pulmonary arteries: There is enlargement of the central pulmonary arteries, findings which can be associated with pulmonary arterial hypertension which should be correlated clinically. There are no pulmonary emboli. Aorta: There is no aortic dissection or aneurysm. Lungs: Moderate to severe centrilobular and paraseptal emphysematous changes demonstrated bilaterally most pronounced in the upper mid lung zones. COPD. No acute pulmonary infiltrates. Chronic ovoid parenchymal opacity in the medial basal segment of the right lower lobe measures 1 x 1.3 x 0.8 cm (series 42, image 64, for example) has decreased in volume in this slightly more aerated than demonstrated previously. Bibasilar atelectasis, right greater than left. Clinical correlation to exclude pneumonitis suggested. Chronic atelectasis involving the medial segment of the right middle lobe again redemonstrated with occlusion of the proximal and segmental right middle lobe airways. Finding may be secondary to mucous plugging and is grossly stable. Considering stability neoplastic involvement is considered unlikely. Multiple partially occluded airways demonstrated in the bronchus intermedius and extending to the lower lobe segmental airways on the right consistent with chronic mucous plugging with without acute reactive a nonreactive airway disease. Pleural spaces: Unremarkable. No pneumothorax. No pleural effusion. Heart: There is mild atherosclerotic calcification of the coronary arteries. Lymph nodes: Unremarkable. No enlarged lymph nodes. Bones/joints: Osteoporosis. Soft tissues: See "Lungs" finding. IMPRESSION: 1. Moderate to severe centrilobular and paraseptal emphysematous changes demonstrated bilaterally most pronounced in the upper mid lung zones. COPD. 2. Decreasing volume of a right lower lobe pulmonary parenchymal nodule as described above. 3. Bibasilar atelectasis, right greater than left. Clinical correlation to exclude pneumonitis suggested. 4. Chronic atelectasis involving the medial segment of the right middle lobe again redemonstrated with occlusion of the proximal and segmental right middle lobe airways. Finding may be secondary to mucous plugging and is grossly stable. Considering stability neoplastic involvement is considered unlikely. 5. Multiple partially occluded airways demonstrated in the bronchus intermedius and extending to the lower lobe segmental airways on the right consistent with chronic mucous plugging with without acute reactive a nonreactive airway disease. 6. There is no aortic dissection or aneurysm. 7. There is enlargement of the central pulmonary arteries, findings which can be associated with pulmonary arterial hypertension which should be correlated clinically. 8. There are no pulmonary emboli. ] MICROBIOLOGY: Please see below. ASSESSMENT: [Patient is a very poor historian. This is an 89 y/o female with a pmh of chf, hld, copd, hypothyroidism who reports to our ED on 04/25 with a cc of shortness of breath that has been increasing for 1 week. Patient states that she has also had increasing pain in her rlq for the past week as well. Patient recently had a stay in our hospital from 04/15-04/21 for a small bowel obstruction in which she was treated with medical management. Imaging in the ED today shows small bowel obstruction. Patient also found to have parainfluenza infection.]. . PLAN: 1. [COPD Exacerbation - Likely due to parainfluenza virus - CXR not showing acute infiltrates suggestive of pneumonia - No sepsis criteria - Patient received solumedrol, duonebs in the ed - Will continue iv solumedrol q12 on the floor - scheduled duonebs, prn xopenex - supplemental o2 therapy as needed titrated to 88-92% - admit to med surg for tx 2. SBO - Case reviewed and patient seen by general surgeon, Dr. Farmer, who did not feel this was a surgical case and did not recommend ng tube. - Will keep patient npo for now - will give maintenance ivf while npo - zofran for nausea - morphine for pain 3. HTN - continue lisinopril 4. Hypothyroidism - continue synthroid DVT prophylaxis - lovenox]. Vital Signs Vital Signs Date Time Temp Pulse Resp B/P (MAP) Pulse Ox O2 Delivery O2 Flow Rate FiO2 04/25/21 19:16 71 90 04/25/21 19:15 118/59 (78) 04/25/21 18:31 Nasal Cannula 1.0 04/25/21 15:12 92 04/25/21 15:07 98.9 24 Laboratory Data Labs 24H Laboratory Tests 2 04/25/21 15:43: Blood Gas Bicarbonate Standard 23.7, Arterial Blood pH 7.382, Arterial Blood Partial Pressure CO2 41.5, Arterial Blood Partial Pressure O2 95.7, Arterial Blood Total CO2 25.4, Arterial Blood HCO3 24.1, Arterial Blood Base Excess -1.0, Arterial Blood Oxygen Saturation 97.5 04/25/21 15:44: Immature Granulocyte % (Auto) 0.6, Neutrophils (%) (Auto) 66.9H, Lymphocytes (%) (Auto) 14.6L, Monocytes (%) (Auto) 17.2H, Eosinophils (%) (Auto) 0.1, Basophils (%) (Auto) 0.6, Neutrophils # (Auto) 5.5, Lymphocytes # (Auto) 1.2L, Monocytes # (Auto) 1.4H, Eosinophils # (Auto) 0.0, Basophils # (Auto) 0.1, Nucleated Red Blood Cells % (auto) 0.0, Prothrombin Time 16.8H, Prothromb Time International Ratio 1.32, Anion Gap 8, Glomerular Filtration Rate 46.9, Lactic Acid Level 1.6, Calcium Level 8.0L, Total Bilirubin 0.3, Direct Bilirubin < 0.1, Aspartate Amino Transf (AST/SGOT) 25, Alanine Aminotransferase (ALT/SGPT) 17, Alkaline Phosphatase 61, Total Creatine Kinase 91, Creatine Kinase MB 1.8, Creatine Kinase MB Relative Index 1.98, Troponin I 0.03, JV-Rln-K-Type Natriuretic Peptide 2203H, Total Protein 5.5L, Albumin 2.8L, Albumin/Globulin Ratio 1.0L, Lipase 97, Thyroid Stimulating Hormone (TSH) 1.030, Thyroxine (T4) 9.8 CBC/BMP Laboratory Tests 04/25/21 15:44 Microbiology Microbiology 04/25/21 Blood Culture, Received Pending 04/25/21 Respiratory Virus Panel (PCR) (CATHY) - Final, Complete Parainfluenza 3 (Piv3) 04/25/21 Blood Culture, Received Pending Home Medications Scheduled Calcium Carbonate/Vitamin D3 (Calcium 600-Vit D3 400 Tablet) 1 Each Tablet, 1 TAB PO DAILY Diphenhydramine HCl (Diphenhydramine HCl) 25 Mg Capsule, 25 MG PO QHS Docusate Sodium (Stool Softener) 100 Mg Capsule, 100 MG PO BID Fluticasone/Umeclidin/Vilanter (Trelegy Ellipta 200-62.5-25) 200-62.5 Blst.w.dev, 1 PUFF IH DAILY Levothyroxine Sodium (Synthroid) 75 Mcg Tab, 75 MCG PO DAILY Lisinopril (Lisinopril) 5 Mg Tablet, 5 MG PO BID Moxifloxacin HCl (Moxifloxacin HCl) 400 Mg Tablet, 400 MG PO DAILY STARTED 04/22/21 FOR 5 DAYS Polyethylene Glycol 3350 (Miralax) 119 Gm Powder, 17 GM PO BID dilute in 8 ounces of water or juice Vit A/Vit C/Vit E/Zinc/Copper (Preservision Areds Softgel) 1 Each Capsule, 1 CAP PO BID Scheduled PRN Acetaminophen (Acetaminophen) 500 Mg Tablet, 1,000 MG PO Q6H PRN for MILD PAIN (PS 1-4) Albuterol Sulf (Albuterol Sulfate) 2.5 Mg/3 Ml Nebu, 2.5 MG INH Q4H PRN for YANIV RTNESS OF BREATH Albuterol Sulfate (Proair Hfa) 108 Mcg/Act Aer, 2 PUFFS INH QID PRN for SHORTNESS OF BREATH Propylene Glycol/Peg 400 (Systane 0.3-0.4% Eye Drops) 15 Ml Monik, 1 DROP OU PRN PRN for DRY EYES Allergies Coded Allergies: Aminoglycosides (Verified Allergy, Unknown, 07/10/19) bacitracin (Verified Allergy, Unknown, 07/10/19) neomycin (Verified Allergy, Unknown, 07/10/19) polymyxin B (Verified Allergy, Unknown, 07/10/19) A-FIB/CHADSVASC A-FIB History Current/History of A-Fib/PAF?: No CARLY NO Apr 25, 2021 19:56
[2021-04-25 20:02] LABS: PARTIAL THROMBOPLASTIN TIME 43.7 SECONDS (25.9-37.0)
[2021-04-25] MEDS: diphenhydrAMINE 25MG CAP PO SCH (21:00)
[2021-04-25] MEDS ORDERED: MORPHINE 2 MG/ML 1ML VIAL (J2270) IV PRN (21:40)
[2021-04-25] MEDS: ONDANSETRON 4MG/2ML VIAL IV SCH (22:00)
[2021-04-25 23:00] VITALS: BP 113/61
[2021-04-26] MEDS: MIRALAX *UNIT DOSE* 17GM PACKET PO SCH ×3 (00:54→21:00)
[2021-04-26] MEDS: OCUVITE 1 TAB PO SCH ×3 (00:54→21:02)
[2021-04-26] MEDS: lisinopriL 5 MG TAB PO SCH ×3 (00:54→21:02)
[2021-04-26] MEDS: NS 1,000 ML IV SCH ×3 (00:55→15:11)
[2021-04-26] MEDS: ONDANSETRON 4MG/2ML VIAL IV SCH ×3 (02:00→09:27)
[2021-04-26] MEDS: methylPREDNISolone 125MG 2ML VIAL IV SCH ×2 (05:54→15:15)
[2021-04-26] MEDS: LEVOTHYROXINE 75MCG TABLET (0.075MG) PO SCH (05:54)
[2021-04-26 06:00] VITALS: BP 108/57
[2021-04-26 06:08] LABS: HEMATOCRIT 36.4 % (36.0-47.0); HEMOGLOBIN 11.7 g/dl (12.0-15.5); MEAN CORPUSCULAR HEMOGLOBIN 31.6 pg (27.0-33.0); MEAN CORPUSCULAR HGB CONC 32.1 g/dl (32.0-36.5); MEAN CORPUSCULAR VOLUME 98.4 fl (80.0-96.0); PLATELET COUNT, AUTOMATED 379 10^3/uL (150-450); WHITE BLOOD COUNT 5.2 10^3/uL (4.0-10.0)
[2021-04-26 06:40] LABS: BLOOD UREA NITROGEN 25 MG/DL (7-18); CALCIUM LEVEL 7.9 MG/DL (8.8-10.2); CARBON DIOXIDE LEVEL 29 MEQ/L (21-32); CHLORIDE LEVEL 104 MEQ/L (98-107); GLOMERULAR FILTRATION RATE > 60.0 (>32); GLUCOSE, FASTING 137 MG/DL (70-100); MAGNESIUM LEVEL 2.2 MG/DL (1.8-2.4); POTASSIUM SERUM 4.5 MEQ/L (3.5-5.1); SODIUM LEVEL 140 MEQ/L (136-145)
[2021-04-26] MEDS: IPRATROPIUM 0.5MG/ALBUTEROL 2.5MG INH SOL UD 3ML (DUONEB) NEB SCH ×3 (07:27→19:17)
[2021-04-26] MEDS: ENOXAPARIN 30MG/0.3ML SYRINGE (J1650 PER 10MG) SC SCH (09:27)
--- NOTE | 2021-04-26 10:03 | IPNPDOC ---
Text Note Date of Service The patient was seen on 04/26/21. NOTE S: Pt seen and evaluated at bedside this AM. She tells me her abd pain has imp roved since yesterday. Reports productive cough, and tells me she has small amounts of yellow sputum. Reports fatigue, constipation. Denies chest pain, palpitations, SOB, n/v, difficulty passing gas. O: GEN: sitting up inn bed, alert and awake, NAD HEENT: NC/AT, EOMI, nasal cannula in place, dry mucous membranes CARDIO: normal heart sounds, RRR, no MRG PULM: CTA b/l, no WRR, no accessory muscles used ABD: normal BS, soft, nontender, nondistended, bulge in center of lower abd felt w/ deep palpation (nontender) PSYCH: AOx3, normal mood/affect IMAGING: CXR (04/25/21) The infiltrate and pleural effusion identified inferiorly in the right hemithorax on 04/19/2021 have resolved. There is chronic collapse of the right middle lobe medial segment as described. CT abd/pelvis (04/25/21) 1. Redemonstration of calcified granulomata and a small cyst within the spleen. Ring shaped enhancing lesion demonstrated in the anterior spleen measures 10 mm grossly stable in size. 2. Stable hepatic cysts. 3. Stable hyperenhancing foci demonstrated in the liver as described above. Further evaluation could be obtained with pre and post-contrast hepatic MRI i ncluding dynamic postcontrast imaging. 4. There is diffuse pancreatic atrophy. 5. Hydropic gallbladder without evidence of calculi, wall thickening or pericholecystic fluid. 6. There has been a hysterectomy. 7. Mild diverticulosis is present in the distal colon. No diverticulitis. 8. There is evidence of mesenteric twisting demonstrated in the lower abdomen pelvic region, finding in this location which may signify the presence of an internal hernia. There is mild dilatation of small bowel loops demonstrated proximally consistent with small-bowel obstruction. 9. There are foci of apparent extraluminal gas demonstrated in the mid pelvic region which appear to originate from small bowel loops. CTA (04/25/21) 1. Moderate to severe centrilobular and paraseptal emphysematous changes demonstrated bilaterally most pronounced in the upper mid lung zones. COPD. 2. Decreasing volume of a right lower lobe pulmonary parenchymal nodule as described above. 3. Bibasilar atelectasis, right greater than left. Clinical correlation to exclude pneumonitis suggested. 4. Chronic atelectasis involving the medial segment of the right middle lobe again redemonstrated with occlusion of the proximal and segmental right middle lobe airways. Finding may be secondary to mucous plugging and is grossly stable. Considering stability neoplastic involvement is considered unlikely. 5. Multiple partially occluded airways demonstrated in the bronchus intermedius and extending to the lower lobe segmental airways on the right consistent with chronic mucous plugging with without acute reactive a nonreactive airway disease. 6. There is no aortic dissection or aneurysm. 7. There is enlargement of the central pulmonary arteries, findings which can be associated with pulmonary arterial hypertension which should be correlated clinically. 8. There are no pulmonary emboli. A/P: 89F PMH COPD, abd surgeries, recently d/c 04/21 following SBO admission which resolved w/ medical management, now w/ COPD exacerbation 2/2 parainfluenza virus and continued medical management for SBO, w/ improved sx today. #COPD exacerbation 2/2 parainfluenza virus No leukpcytosis. Pt does not appear septic. CXR noted above On Solumedrol, Duoneb, PRN Levalbuterol Blood cx pending Pt currently 93% O2sat on 1L NC. Recommended O2sat titration to 88-92%. #Small SBO On IVF On Zofran PRN On Morphine PRN Advance diet from NPO to clear liquids Surgery on consult (Dr. Farmer) #HTN On Lisinopril #Hypothyroidism On Synthroid #DVT Prophylaxis On Lovenox DISPO: pending clinical improvement Activity as tolerated Clear liquids diet GME ATTESTATION My faculty preceptor for this patient encounter was physically present during the encounter and was fully available. All aspects of the patient interview, examination, medical decision making process, and medical care plan development were reviewed and approved by the faculty preceptor. The faculty preceptor is a steward and concurs with the plan as stated in the body of this note and will attest to such by his/her cosignature. ATTENDING NOTE I personally examined the patient, and I agree with the above noted findings and management as detailed by the resident physician. VS,Fishbone, I+O VS, Fishbone, I+O Laboratory Tests 04/25/21 15:44 04/26/21 05:36 Vital Signs Date Time Temp Pulse Resp B/P (MAP) Pulse Ox O2 Delivery O2 Flow Rate FiO2 04/26/21 09:27 110/57 04/26/21 06:00 97.2 66 16 93 Nasal Cannula 1.0 04/25/21 15:12 92 I&O- Last 24 Hours up to 6 AM 04/26/21 06:00 Intake Total 375 ml Output Total 375 ml Balance 0 ml Jadyn Erickson DO Apr 26, 2021 10:03 AKUA GRANT MD Apr 26, 2021 11:57
[2021-04-26] MEDS ORDERED: ONDANSETRON 4MG/2ML VIAL IV PRN (10:30)
--- NOTE | 2021-04-26 11:39 | CR ---
CONSULTATION DATE: 04/25/2021 REASON FOR CONSULTATION: Abdominal pain with CT report suggesting bowel obstruction and free air. HISTORY OF PRESENT ILLNESS: The patient is an 89-year-old woman who had been admitted at [facility] very recently. She was admitted on the 15 of April and discharged home on the 21 of April. That hospital stay was initiated by complaints of abdominal pain and some nausea. A CT scan during that admission had suggested a possible distal small bowel obstruction. There was also a suggestion of some constipation. She was treated initially with a nasogastric tube and IV fluid. She was followed by General Surgery. A small bowel follow through study on the 16 of April showed no passage of contrast from the mid small bowel into the colon by 6 hours but at the 22 hour uday after ingestion of the contrast she was noted to have contrast into the mid portion of the colon with evidence for some dilated distal small bowel loops. Her symptoms gradually waned. She had an additional CT scan on the 18 of April that suggested some persistent mild small bowel distention but a discrete point of obstruction was not seen. Her diet was slowly advanced and she tolerated liquids and subsequently solid food and was discharged on the 21 of April. She returned to the Emergency Department on the 25 of April with primarily a complaint of shortness of breath. She reports that this had been going for some time. She also had complained of some discomfort in her right lower quadrant. A CT scan of the abdomen and pelvis was done which was interpreted by Radiology as showing some mildly dilated small bowel loops suggestive of obstruction. The gallbladder was quite distended without evidence of stones or wall thickening. The radiologist felt that there was some mesenteric twisting demonstrated in the lower abdomen and indicated that this could signify the presence of an internal hernia. He also noted what he felt were foci of extraluminal gas in the mid pelvic region and suggested that these appeared to originate from small bowel loops. Because of these series of findings on the CT scan, I was asked to evaluate the patient. ALLERGIES: Patient has several allergies reported including aminoglycoside, Bacitracin, Neomycin and Polymixin-B. CURRENT MEDICATIONS: As listed in the medical record medication list. PAST SURGICAL HISTORY: Bilateral cataracts. She has undergone an open appendectomy. She had a hysterectomy. Old records suggest the possibility of some sort of urologic procedure many years ago. PAST MEDICAL HISTORY: Significant for chronic obstructive pulmonary disease. She has a history of congestive heart failure primarily diastolic. She has been noted to have some pulmonary nodules and I am unaware of the degree to which these have been evaluated. She has a history of hypertension and hypothyroidism. FAMILY HISTORY: Noncontributory at this point in her life. SOCIAL HISTORY: She is a previous smoker who quit many years ago. She apparently still has a daily glass of wine. REVIEW OF SYSTEMS: Primarily her current shortness of breath, although she reports she has had some shortness of breath long-term. She denies any chest pain or palpitations. She has had some mild lower abdominal discomfort but to me denies any nausea or vomiting. PHYSICAL EXAMINATION: She is a pleasant but frail appearing older woman lying quietly on the stretcher in the Emergency Department. Her most recent vital signs show her to be afebrile with a pulse in the 60s and a normal blood pressure of approximately 120 systolic. Skin is warm and dry. Sclera are anicteric. Mucous membranes appear moist. The neck is supple without mass. Heart exam reveals a regular rate and rhythm of about 60 to 70. Lungs are clear although the breath sounds are distant. Her abdomen is flat. She has an old low midline scar. She has an old low right lower quadrant paramedian scar. There is no sign of abdominal wall hernia. She has active bowel sounds in all four quadrants. The abdomen is nondistended. Palpation reveals the abdomen to be soft throughout with some minimal discomfort in patchy areas and this is not reliable reproducible on repeat exam. No masses appreciated. Lower extremities are thin without edema and she has palpable radial and pedal pulses. LABORATORY DATA: Laboratory studies shows a white count of 8, hemoglobin of 12, hematocrit 39 and a platelet count of 365,000. Differential count shows 67% neutrophils, 15% lymphocytes and 17% monocytes. Chemistry profile shows normal electrolytes with a BUN of 22, creatinine 1.16 and a glucose of 130. Liver function tests are entirely normal. Troponin is 0.03 with a BNP of 2203. Total protein is 5.5 with an albumin of 2.8. Lipase is normal and TSH and thyroxine are normal. Imaging included a chest x-ray, CT scan of the abdomen and pelvis and a CT angiogram of the chest. The chest x-ray was reported to show resolution of a previously noted right lower lobe infiltrate and effusion. This had been seen on a prior x-ray of [address]. The CT angiogram was interpreted by Radiology as showing no evidence of pulmonary emboli. There were some emphysematous changes noted in the lungs. There was no evidence of pulmonary embolus and no sign of aortic dissection or aneurysm. Other changes were as noted in the report but did not appear to be acute findings. I reviewed the imaging and report from the CT scan of the abdomen and pelvis. On my review, I do not identify air bubbles that I can confirm as being extraluminal. All of the air that I identify on the images appears to be intraluminal. She may have some mildly dilated more proximal small bowel but certainly there is no definite evidence of obstruction. Her gallbladder is quite distended but there are no stones identified. IMPRESSION: Benign abdominal exam with CT findings of uncertain clinical significance. I am not convinced that she has a perforation based on review of her CT images and her physical exam. A definite bowel obstruction is not identified. RECOMMENDATIONS: At this point I would not recommend placing an NG-tube. Her abdomen is flat and soft and without significant tenderness. She has active bowel sounds. I think it would be reasonable to continue oral medications. It is probably prudent to keep her NPO initially but if there is no evidence of any change in her abdominal findings, then resumption of a clear liquid diet in the near future would be reasonable with advancement as tolerated. Patient was counseled regarding my exam findings and advised that she certainly does not appear to have any reason to have surgical intervention on her abdomen at this time.
[2021-04-26 14:00] VITALS: BP 112/57
[2021-04-26] MEDS: diphenhydrAMINE 25MG CAP PO SCH (21:00)
[2021-04-26 22:00] VITALS: BP 116/53
[2021-04-26 23:09] VITALS: O2SAT 94
[2021-04-27] MEDS: diphenhydrAMINE 25MG CAP PO SCH ×2 (00:09→20:22)
[2021-04-27] MEDS: IPRATROPIUM 0.5MG/ALBUTEROL 2.5MG INH SOL UD 3ML (DUONEB) NEB SCH ×4 (01:10→19:01)
[2021-04-27] MEDS: methylPREDNISolone 125MG 2ML VIAL IV SCH ×2 (04:37→16:20)
[2021-04-27 06:00] VITALS: BP 121/64
[2021-04-27] MEDS: LEVOTHYROXINE 75MCG TABLET (0.075MG) PO SCH (06:27)
[2021-04-27 06:43] LABS: HEMATOCRIT 33.9 % (36.0-47.0); HEMOGLOBIN 10.8 g/dl (12.0-15.5); MEAN CORPUSCULAR HEMOGLOBIN 31.5 pg (27.0-33.0); MEAN CORPUSCULAR HGB CONC 31.9 g/dl (32.0-36.5); MEAN CORPUSCULAR VOLUME 98.8 fl (80.0-96.0); PLATELET COUNT, AUTOMATED 407 10^3/uL (150-450); RED BLOOD COUNT 3.43 10^6/uL (4.00-5.40); WHITE BLOOD COUNT 10.2 10^3/uL (4.0-10.0)
[2021-04-27 07:09] LABS: BLOOD UREA NITROGEN 27 MG/DL (7-18); CALCIUM LEVEL 7.9 MG/DL (8.8-10.2); CARBON DIOXIDE LEVEL 27 MEQ/L (21-32); CHLORIDE LEVEL 110 MEQ/L (98-107); CREATININE FOR GFR 0.54 MG/DL (0.55-1.30); GLOMERULAR FILTRATION RATE > 60.0 (>32); GLUCOSE, FASTING 123 MG/DL (70-100); MAGNESIUM LEVEL 2.2 MG/DL (1.8-2.4); POTASSIUM SERUM 4.2 MEQ/L (3.5-5.1); SODIUM LEVEL 142 MEQ/L (136-145)
[2021-04-27] MEDS: OCUVITE 1 TAB PO SCH ×2 (08:49→20:22)
[2021-04-27] MEDS: ENOXAPARIN 30MG/0.3ML SYRINGE (J1650 PER 10MG) SC SCH (08:49)
[2021-04-27] MEDS: MIRALAX *UNIT DOSE* 17GM PACKET PO SCH ×2 (08:49→20:23)
[2021-04-27] MEDS: lisinopriL 5 MG TAB PO SCH ×2 (08:55→20:22)
[2021-04-27 09:00] VITALS: O2SAT 95
--- NOTE | 2021-04-27 11:09 | IPNPDOC ---
Text Note Date of Service The patient was seen on 04/27/21. NOTE S: Pt seen and evaluated at bedside this AM. Pt's diet advanced yesterday from NPO to clear liquids. She tells me she "feels sick" and had n/v and felt feverish all night. Despite this, pt interested in further advancing diet to regular so she can eat "normal" food. Denies BM, but tells me she feels like she will have one soon. Reports fatigue, confusion. Denies chest pain, palpitations, SOB, difficulty swallowing, abd pain, difficulty passing gas. O: GEN: laying in bed, alert and awake, NAD HEENT: NC/AT, EOMI, nasal cannula in place, dry mucous membranes CARDIO: normal heart sounds, irregular rhythm, RR, no MRG PULM: CTA b/l, no WRR, no accessory muscles used ABD: normal BS, soft, nontender, nondistended, bulge in center of lower abd felt w/ deep palpation (nontender) PSYCH: AOx3, normal mood/affect IMAGING: CXR (04/25/21) The infiltrate and pleural effusion identified inferiorly in the right hemithorax on 04/19/2021 have resolved. There is chronic collapse of the right middle lobe medial segment as described. CT abd/pelvis (04/25/21) 1. Redemonstration of calcified granulomata and a small cyst within the spleen. Ring shaped enhancing lesion demonstrated in the anterior spleen measures 10 mm grossly stable in size. 2. Stable hepatic cysts. 3. Stable hyperenhancing foci demonstrated in the liver as described above. Further evaluation could be obtained with pre and post-contrast hepatic MRI including dynamic postcontrast imaging. 4. There is diffuse pancreatic atrophy. 5. Hydropic gallbladder without evidence of calculi, wall thickening or pericholecystic fluid. 6. There has been a hysterectomy. 7. Mild diverticulosis is present in the distal colon. No diverticulitis. 8. There is evidence of mesenteric twisting demonstrated in the lower abdomen pelvic region, finding in this location which may signify the presence of an internal hernia. There is mild dilatation of small bowel loops demonstrated proximally consistent with small-bowel obstruction. 9. There are foci of apparent extraluminal gas demonstrated in the mid pelvic region which appear to originate from small bowel loops. CTA (04/25/21) 1. Moderate to severe centrilobular and paraseptal emphysematous changes demonstrated bilaterally most pronounced in the upper mid lung zones. COPD. 2. Decreasing volume of a right lower lobe pulmonary parenchymal nodule as described above. 3. Bibasilar atelectasis, right greater than left. Clinical correlation to exclude pneumonitis suggested. 4. Chronic atelectasis involving the medial segment of the right middle lobe again redemonstrated with occlusion of the proximal and segmental right middle lobe airways. Finding may be secondary to mucous plugging and is grossly stable. Considering stability neoplastic involvement is considered unlikely. 5. Multiple partially occluded airways demonstrated in the bronchus intermedius and extending to the lower lobe segmental airways on the right consistent with chronic mucous plugging with without acute reactive a nonreactive airway disease. 6. There is no aortic dissection or aneurysm. 7. There is enlargement of the central pulmonary arteries, findings which can be associated with pulmonary arterial hypertension which should be correlated clinically. 8. There are no pulmonary emboli. Abd Xray (04/27/21) No compelling radiographic evidence of small bowel obstruction. A/P: 89F PMH COPD, abd surgeries, recently d/c 04/21 following SBO admission which resolved w/ medical management, now w/ COPD exacerbation 2/2 parainfluenza virus and continued medical management for SBO, w/ n/v on clear liquids diet. #COPD exacerbation 2/2 parainfluenza virus- improved On Solumedrol, Duoneb, PRN Levalbuterol WBC 10.2, most likely 2/2 Solumedrol. Pt does not appear septic. CXR noted above Blood cx / negative after 24hrs Pt currently 93% O2sat on 1L NC. Recommended O2sat titration to 88-92%. Start Prednisone 40mg D/c Solumedrol #Small SBO Reports n/v yesterday when diet advanced from NPO to clear liquids KUB today normal Lactate 1.4 On IVF On Zofran PRN On Morphine PRN Surgery on consult (Dr. Farmer) #HTN On Lisinopril #Hypothyroidism On Synthroid #DVT Prophylaxis On Lovenox DISPO: pending clinical improvement Activity as tolerated Clear liquids diet GME ATTESTATION My faculty preceptor for this patient encounter was physically present during the encounter and was fully available. All aspects of the patient interview, ex amination, medical decision making process, and medical care plan development were reviewed and approved by the faculty preceptor. The faculty preceptor is aware and concurs with the plan as stated in the body of this note and will attest to such by his/her cosignature. ATTENDING NOTE I personally examined Ms. Padilla and discussed her course and findings with the resident team and I agree with the above summary and plan. Her SBO has resolved and she it tolerating PO well. VS,Fishbone, I+O VS, Fishbone, I+O Laboratory Tests 04/27/21 05:37 Vital Signs Date Time Temp Pulse Resp B/P (MAP) Pulse Ox O2 Delivery O2 Flow Rate FiO2 04/27/21 08:55 135/63 04/27/21 06:00 97.2 70 14 95 Nasal Cannula 1.0 04/25/21 15:12 92 I&O- Last 24 Hours up to 6 AM 04/27/21 06:00 Intake Total 910 ml Output Total 200 ml Balance 710 ml Jadyn Erickson DO Apr 27, 2021 11:09 AKUA GRANT MD Apr 28, 2021 12:01
--- NOTE | 2021-04-27 11:40 | REP ---
INDICATION: possible SBO. COMPARISON: 04/17/2021. TECHNIQUE: AP view abdomen and pelvis. FINDINGS: There is scattered air throughout the nondilated colon. Air is seen in a few bowel loops in the pelvis which may represent small bowel, but these loops are not significantly dilated. There is no compelling radiographic evidence of small bowel obstruction. There are diffuse vascular calcifications. There mild degenerative changes of the spine. IMPRESSION: No compelling radiographic evidence of small bowel obstruction. <Electronically signed by Shelton Smith > 04/27/21 [id number]
[2021-04-27] MEDS: NS 1,000 ML IV SCH (11:45)
[2021-04-27 23:48] VITALS: O2SAT 95
[2021-04-28] MEDS: NS 1,000 ML IV SCH ×2 (01:05→14:25)
[2021-04-28] MEDS: IPRATROPIUM 0.5MG/ALBUTEROL 2.5MG INH SOL UD 3ML (DUONEB) NEB SCH ×3 (02:12→13:17)
[2021-04-28] MEDS: methylPREDNISolone 125MG 2ML VIAL IV SCH (03:22)
[2021-04-28] MEDS: LEVOTHYROXINE 75MCG TABLET (0.075MG) PO SCH (05:39)
[2021-04-28 06:00] VITALS: BP 116/72
[2021-04-28 06:19] LABS: HEMATOCRIT 32.5 % (36.0-47.0); HEMOGLOBIN 10.4 g/dl (12.0-15.5); MEAN CORPUSCULAR HEMOGLOBIN 31.4 pg (27.0-33.0); MEAN CORPUSCULAR VOLUME 98.2 fl (80.0-96.0); PLATELET COUNT, AUTOMATED 394 10^3/uL (150-450); RED BLOOD COUNT 3.31 10^6/uL (4.00-5.40); WHITE BLOOD COUNT 9.6 10^3/uL (4.0-10.0)
[2021-04-28 06:37] LABS: BLOOD UREA NITROGEN 24 MG/DL (7-18); GLUCOSE, FASTING 128 MG/DL (70-100)
[2021-04-28 06:38] LABS: CALCIUM LEVEL 7.9 MG/DL (8.8-10.2); CARBON DIOXIDE LEVEL 26 MEQ/L (21-32); CHLORIDE LEVEL 113 MEQ/L (98-107); GLOMERULAR FILTRATION RATE > 60.0 (>32); MAGNESIUM LEVEL 2.2 MG/DL (1.8-2.4); SODIUM LEVEL 144 MEQ/L (136-145)
[2021-04-28 10:00] VITALS: O2SAT 95
--- NOTE | 2021-04-28 10:10 | DS.PDOC ---
Discharge Summary General Date of Admission Apr 25, 2021 at 19:44 Date of Discharge 04/28/21 Attending Physician: AKUA GRANT MD Specialist/Consultants Involve: Geovany Farmer Discharge Summary PROCEDURES PERFORMED DURING STAY: None ADMITTING DIAGNOSES: 1. COPD Exacerbation 2. SBO DISCHARGE DIAGNOSES: 1. Parainfluenza virus 2. Chronic abd pain 2/2 constipation COMPLICATIONS/CHIEF COMPLAINT: Parainfluenza, Sbo (Small Bowel Obstruction). HISTORY OF PRESENT ILLNESS: Stephanie is (now) 89F PMH CHF, HLD, COPD, Hypothyroidism who presented to ED w/ worsening SOB x1wk. She was recently hospitalized 04/15- 04/21 for possible SBO which was managed medically. She also reported worsening RLQ abd pain x1wk w/ n/v. Reported good appetite, normal BM earlier that day. Denied fever/chills, chest pain, dysuria, pedal edema. Imaging in ED significant for SBO CT abd pelvis. Respiratory panel in ED significant for parainfluenza virus. Gen surg (Dr. Farmer) on consult recommended NPO w/ maintenance IVF, PRN zofran. NG tube not recommended and most likely not surgical case. HOSPITAL COURSE: Pt received Solumedrol, duoneb, PRN xopenex, supplemental O2 (titrated 88-92%). Reported improvement in SOB, cough. Pt's abd pain improved and diet was advanced from NPO to clear liquids. On clear liquids diet, pt reported feeling unwell w/ frequent n/v. Abd xray completed for concern of progressive SBO. Abd xray normal, lactate wnl. Pt's diet further advanced to regular and she tolerated it well. DISCHARGE MEDICATIONS: Please see below. ALLERGIES: Please see below. PHYSICAL EXAMINATION ON DISCHARGE: VITAL SIGNS: Please see below. GENERAL: sitting up in bed, NAD, alert and awake HEENT: NC/AT, EOMI, nares patent, moist mucous membranes CARDIOVASCULAR EXAMINATION: normal heart sounds, irregular rhythm, regular rate, no MRG RESPIRATORY EXAMINATION: CTA b/l, no WRR, no accessory muscles used ABDOMINAL EXAMINATION: normal BS, soft, nontender, nondistended EXTREMITIES: no edema, normal ROM SKIN: no new rashes/abrasions/wounds NEUROLOGICAL EXAMINATION: no FND, strength 5/5 PSYCHIATRIC EXAMINATION: AOx3, normal mood/affect LABORATORY DATA: Please see below. IMAGING: CXR (04/25/21) The infiltrate and pleural effusion identified inferiorly in the right hemithorax on 04/19/2021 have resolved. There is chronic collapse of the right middle lobe medial segment as described. CT abd/pelvis (04/25/21) 1. Redemonstration of calcified granulomata and a small cyst within the spleen. Ring shaped enhancing lesion demonstrated in the anterior spleen measures 10 mm grossly stable in size. 2. Stable hepatic cysts. 3. Stable hyperenhancing foci demonstrated in the liver as described above. Further evaluation could be obtained with pre and post-contrast hepatic MRI including dynamic postcontrast imaging. 4. There is diffuse pancreatic atrophy. 5. Hydropic gallbladder without evidence of calculi, wall thickening or pericholecystic fluid. 6. There has been a hysterectomy. 7. Mild diverticulosis is present in the distal colon. No diverticulitis. 8. There is evidence of mesenteric twisting demonstrated in the lower abdomen pelvic region, finding in this location which may signify the presence of an internal hernia. There is mild dilatation of small bowel loops demonstrated proximally consistent with small-bowel obstruction. 9. There are foci of apparent extraluminal gas demonstrated in the mid pelvic region which appear to originate from small bowel loops. CTA (04/25/21) 1. Moderate to severe centrilobular and paraseptal emphysematous changes demonstrated bilaterally most pronounced in the upper mid lung zones. COPD. 2. Decreasing volume of a right lower lobe pulmonary parenchymal nodule as described above. 3. Bibasilar atelectasis, right greater than left. Clinical correlation to exclude pneumonitis suggested. 4. Chronic atelectasis involving the medial segment of the right middle lobe again redemonstrated with occlusion of the proximal and segmental right middle lobe airways. Finding may be secondary to mucous plugging and is grossly stable. Considering stability neoplastic involvement is considered unlikely. 5. Multiple partially occluded airways demonstrated in the bronchus intermedius and extending to the lower lobe segmental airways on the right consistent with chronic mucous plugging with without acute reactive a nonreactive airway disease. 6. There is no aortic dissection or aneurysm. 7. There is enlargement of the central pulmonary arteries, findings which can be associated with pulmonary arterial hypertension which should be correlated clinically. 8. There are no pulmonary emboli. Abd Xray (04/27/21) No compelling radiographic evidence of small bowel obstruction. PROGNOSIS: good ACTIVITY: As tolerated DIET: regular DISCHARGE PLAN: F/u PCP, 7-10days DISPOSITION: home w/ services DISCHARGE INSTRUCTIONS: 1. F/u PCP, 7-10days DISCHARGE CONDITION: Stable TIME SPENT ON DISCHARGE: 20 minutes. Vital Signs/I&Os Vital Signs Date Time Temp Pulse Resp B/P (MAP) Pulse Ox O2 Delivery O2 Flow Rate FiO2 04/28/21 06:00 97.1 69 17 116/72 (87) 93 Nasal Cannula 0.5 04/25/21 15:12 92 I&O- Last 24 Hours up to 6 AM 04/28/21 06:00 Intake Total 2070 ml Output Total 200 ml Balance 1870 ml Laboratory Data Labs 24H Laboratory Tests 2 04/27/21 10:30: Lactic Acid Level 1.4 04/28/21 05:36: Nucleated Red Blood Cells % (auto) 0.0, Anion Gap 5L, Glomerular Filtration Rate > 60.0, Calcium Level 7.9L, Magnesium Level 2.2 CBC/BMP Laboratory Tests 04/28/21 05:36 Microbiology Microbiology 04/25/21 Blood Culture - Preliminary, Resulted No Growth after 48 hours. All Specime... 04/25/21 Respiratory Virus Panel (PCR) ([facility]) - Final, Complete Parainfluenza 3 (Piv3) 04/25/21 Blood Culture - Preliminary, Resulted No Growth after 48 hours. All Specime... Discharge Medications Scheduled Calcium Carbonate/Vitamin D3 (Calcium 600-Vit D3 400 Tablet) 1 Each Tablet, 1 TAB PO DAILY, (Reported) Diphenhydramine HCl (Diphenhydramine HCl) 25 Mg Capsule, 25 MG PO QHS, (Reported) Docusate Sodium (Stool Softener) 100 Mg Capsule, 100 MG PO BID, (Reported) Fluticasone/Umeclidin/Vilanter (Trelegy Ellipta 200-62.5-25) 200-62.5 Blst.w.dev, 1 PUFF IH DAILY, (Reported) Levothyroxine Sodium (Synthroid) 75 Mcg Tab, 75 MCG PO DAILY, (Reported) Lisinopril (Lisinopril) 5 Mg Tablet, 5 MG PO BID, (Reported) Moxifloxacin HCl (Moxifloxacin HCl) 400 Mg Tablet, 400 MG PO DAILY, (Reported) STARTED 04/22/21 FOR 5 DAYS Polyethylene Glycol 3350 (Miralax) 119 Gm Powder, 17 GM PO BID, (Reported) dilute in 8 ounces of water or juice Vit A/Vit C/Vit E/Zinc/Copper (Preservision Areds Softgel) 1 Each Capsule, 1 CAP PO BID, (Reported) Scheduled PRN Acetaminophen (Acetaminophen) 500 Mg Tablet, 1,000 MG PO Q6H PRN for MILD PAIN (PS 1-4), (Reported) Albuterol Sulf (Albuterol Sulfate) 2.5 Mg/3 Ml Nebu, 2.5 MG INH Q4H PRN for SHORTNESS OF BREATH, (Reported) Albuterol Sulfate (Proair Hfa) 108 Mcg/Act Aer, 2 PUFFS INH QID PRN for SHORTNESS OF BREATH, (Reported) Propylene Glycol/Peg 400 (Systane 0.3-0.4% Eye Drops) 15 Ml Monik, 1 DROP OU PRN PRN for DRY EYES, (Reported) Allergies Coded Allergies: Aminoglycosides (Verified Allergy, Unknown, 07/10/19) bacitracin (Verified Allergy, Unknown, 07/10/19) neomycin (Verified Allergy, Unknown, 07/10/19) polymyxin B (Verified Allergy, Unknown, 07/10/19) GME ATTESTATION My faculty preceptor for this patient encounter was physically present during the encounter and was fully available. All aspects of the patient interview, examination, medical decision making process, and medical care plan development were reviewed and approved by the faculty preceptor. The faculty preceptor is aware and concurs with the plan as stated in the body of this note and will attest to such by his/her cosignature. ATTENDING NOTE I personally examined the patient and discussed her clinical course, findings and management with the housestaff team and I agree with the above summary of her course and management. Ms. Padilla's SBO resolved with medical management and parainfluenza induced COPD exacerbation has improved. She is now being discharged home with some home services and monty senalow up with her PCP within 7d of hospital discharge. Jadyn Erickson DO Apr 28, 2021 10:10 AKUA GRANT MD Apr 29, 2021 09:40
[2021-04-28] MEDS: MIRALAX *UNIT DOSE* 17GM PACKET PO SCH (10:32)
[2021-04-28 10:33] VITALS: BP 116/72
[2021-04-28] MEDS: lisinopriL 5 MG TAB PO SCH (10:33)
[2021-04-28] MEDS: OCUVITE 1 TAB PO SCH (10:33)
[2021-04-28] MEDS: ENOXAPARIN 30MG/0.3ML SYRINGE (J1650 PER 10MG) SC SCH (10:34)
== END 2021-04-28 15:38 | disposition home health service (06) | DRG 191 ==
LOC: EDBD 14:52 → M ED 14:52 → M ED INP 19:44 → M MSPAV 23:15
PROVIDERS: ADMIT Family Medicine; ATTEND Internal Medicine
DX: J44.1 Chronic obstructive pulmonary disease with (acute) exacerbation (principal); K56.609 Unspecified intestinal obstruction, unspecified as to partial versus complete obstruction; I50.32 Chronic diastolic (congestive) heart failure; I11.0 Hypertensive heart disease with heart failure; E03.9 Hypothyroidism, unspecified; E78.5 Hyperlipidemia, unspecified; B34.8 Other viral infections of unspecified site; Z98.41 Cataract extraction status, right eye; Z98.42 Cataract extraction status, left eye; Z90.49 Acquired absence of other specified parts of digestive tract; Z79.899 Other long term (current) drug therapy; Z88.8 Allergy status to other drugs, medicaments and biological substances; Z87.891 Personal history of nicotine dependence